=== PATIENT | female | born 1940 | race Hispanic/Latino ===

== ENCOUNTER 2017-07-17 21:12 | Emergency (ER) | payer MEDICARE ==
[~2017-07-17] VITALS: Ht 160 cm; Wt 43.1 kg
[~2017-07-17 21:12] MED LIST: ALENDRONATE SOD70 MG PO; ASPIR 8181 MG PO; ASPIRIN EC81 MG PO; BISOPROLOL-HCT1 EACH PO; CALTRATE 600 W1 EACH PO; CALTRATE-600 W1 EACH PO; CENTRUM SILVER1 EAC3 PO; COLACE100 MG PO; EDARBI40 MG PO; FLAGYL500 MG PO; LEVOTHYROXINE50 MCG PO; LEVOTHYROXINE88 MCG PO; LEXAPRO10 MG PO; LIOTHYRONINE SO5 MCG; LOPRESSOR25 MG PO; Losartan Potassium PO; MAGNESIUM OXID400 MG PO; NEXIUM40 MG PO; NORCO 7.5-3251 EACH PO; ONDANSETRO4 MG/UDTAB PO; PEPCID20 MG PO; PREDNISONE10 MG PO; REGLAN10 MG PO; REGLAN5 MG PO; SENNA LAXATIVE8.6 MG PO; SUCRALFATE1 G/10 ML PO; SUPER B COMPLE1 EACH PO; TUMS200 MG PO; VITAMIN D31000 UNIT PO; VITAMIN D32000 UNIT PO; XYZAL5 MG PO; ZOFRAN ODT4 MG PO
[2017-07-17] MEDS ORDERED: PANTOPRAZOLE 40 MG 10ML VIAL IV STA (22:20)
[2017-07-17] MEDS ORDERED: DIATRIZOATE MEGL/DIATRIZOA SOD 30 ML BTL PO ONE (22:28)
[2017-07-17] MEDS ORDERED: ONDANSETRON HCL 4 MG ORAL DISINTEGRATING TAB PO ONE (22:30)
[2017-07-17] MEDS ORDERED: ASPIRIN 81 MG CHEW TAB PO ONE (22:30)
[2017-07-17 22:35] LABS: BASOPHILS % 0.5 % (0.0-1.0); EOSINOPHILS # (AUTO) 0.1 (0.0-0.4); EOSINOPHILS % 2.1 % (0.0-6.0); HEMATOCRIT 37.5 % (34.2-44.1); HEMOGLOBIN 12.5 g/dL (12.0-16.0); LYMPHOCYTES # (AUTO) 2.7 (1.0-3.2); LYMPHOCYTES % 39.8 % (18.0-39.1); MEAN CORPUSCULAR HEMOGLOBIN 30.3 pg (28-32); MEAN CORPUSCULAR HGB CONC 33.3 g/dL (31-35); MEAN CORPUSCULAR VOLUME 90.8 fL (81-99); MONOCYTES # (AUTO) 0.6 (0.2-0.8); MONOCYTES % 9.5 % (4.4-11.3); NEUTROPHILS # (AUTO) 3.2 (2.1-6.9); NEUTROPHILS % 47.9 % (38.7-80.0); PLATELET COUNT 189 x10e3/uL (140-360); RED BLOOD COUNT 4.13 x10e6/uL (3.6-5.1); RED CELL DISTRIBUTION WIDTH 13.8 % (11.7-14.4)
[2017-07-17 22:39] LABS: INR 1.09; PROTHROMBIN TIME 13.3 seconds (11.9-14.5)
[2017-07-17 22:40] LABS: PARTIAL THROMBOPLASTIN TIME 29.6 seconds (23.8-35.5)
[2017-07-17 22:46] LABS: BILIRUBIN,URINE NEGATIVE (NEGATIVE); CLARITY,URINE CLEAR (CLEAR); COLOR,URINE YELLOW (YELLOW); KETONES,URINE NEGATIVE (NEGATIVE); LEUKOCYTE ESTERASE ,URINE TRACE (NEGATIVE); NITRITE,URINE NEGATIVE (NEGATIVE); PROTEIN,URINE DIPSTICK NEGATIVE (NEGATIVE); URINE UROBILINOGEN 0.2 mg/dL (0.2 - 1)
[2017-07-17 22:50] LABS: BACTERIA,URINE RARE /HPF; EPITHELIAL CELLS,URINE FEW /LPF; TRANSITIONAL EPI CELLS,URINE FEW
[2017-07-17 22:51] LABS: AMYLASE 139 U/L (25-125); CREATINE KINASE 47 IU/L (29-168); LIPASE 44 U/L (8-78)
[2017-07-17 23:04] LABS: ALANINE AMINOTRANSFERASE 24 IU/L (0-55); ALBUMIN 3.5 g/dL (3.5-5.0); ALKALINE PHOSPHATASE 72 IU/L (40-150); ANION GAP 12.9 mmol/L (8-16); BLOOD UREA NITROGEN 19 mg/dL (7-26); BUN/CREATININE RATIO 22 (6-25); CALCIUM 9.5 mg/dL (8.4-10.2); CARBON DIOXIDE 27 mmol/L (22-29); CHLORIDE 102 mmol/L (98-107); CREATININE, SERUM 0.87 mg/dL (0.57-1.11); EST GLOMERULAR FILTRATION RATE > 60 ML/MIN (60-); GLUCOSE 96 mg/dL (74-118); POTASSIUM 3.9 mmol/L (3.5-5.1); SODIUM 138 mmol/L (136-145)
[2017-07-18] MEDS ORDERED: CEFTRIAXONE SOD 1 GM VIAL IV STA (01:19)
[2017-07-18] MEDS ORDERED: SODIUM CHLORIDE 0.9% 500ML 500 ML IV ONE (01:30)
--- NOTE | 2017-07-18 01:52 | Diagnostic Imaging Report ---
EXAM: CT ABDOMEN/PELVIS W DATE: 07/17/2017 10:25 PM INDICATION: \S\H/O GASTRIC CA S/P SURG, ABHISHEK PAIN N/V, ORAL IV CONTRAST \[id number] \S\[id number] COMPARISON: 07/28/2016 TECHNIQUE: The abdomen and pelvis were scanned using a multidetector helical scanner. Coronal and sagittal reformations were obtained. Routine protocol performed. IV Contrast: 100 ml Isovue 300/370 FINDINGS: LOWER THORAX: No consolidations LIVER/BILIARY: Difficult to evaluate due to arterial phase of imaging. Suggestion of low-density 9 mm lesion right hepatic lobe, segment 6 on image 26. Stable extrahepatic biliary ductal dilation. GALLBLADDER: Contracted SPLEEN: Unremarkable PANCREAS: Stable prominence of the pancreatic duct. No masses. ADRENALS: No nodules KIDNEYS: Symmetric perfusion. Unchanged 1.3 cm left renal cyst. No hydronephrosis. GI TRACT: Stable postsurgical changes status post gastric resection. No evidence of obstruction or wall thickening. Diverticulosis. Normal appendix. VESSELS: Mild atherosclerotic changes PERITONEUM/RETROPERITONEUM: No free air or fluid LYMPH NODES: No lymphadenopathy REPRODUCTIVE ORGANS/BLADDER: Unremarkable SOFT TISSUES: Unremarkable BONES: Mild degenerative changes of the lumbar spine. IMPRESSION: 1. No acute abnormality in the abdomen or pelvis. 2. Stable postsurgical changes status post gastric resection. 3. Hypodensity in the right liver, unclear if this reflects a new lesion or is perfusional. Recommend nonemergent MRI with and without IV contrast liver mass protocol. Signed by: Dr Leah Ocampo MD on 07/18/2017 1:48 AM
[2017-07-18] MEDS ORDERED: SODIUM CHLORIDE 0.9% 50ML 50 ML ONE (02:05)
[2017-07-18] MEDS ORDERED: IOPAMIDOL 370 MG/ML 200 ML INFUS..BTL INJ ONE (02:06)
[2017-07-18 02:38] VITALS: BP 123/67
== END 2017-07-18 02:54 | disposition home or self-care (01) ==
LOC: ER 21:12
DX: R10.13 Epigastric pain (principal); R11.0 Nausea; K29.50 Unspecified chronic gastritis without bleeding; N30.91 Cystitis, unspecified with hematuria; I10 Essential (primary) hypertension; K21.9 Gastro-esophageal reflux disease without esophagitis; E03.9 Hypothyroidism, unspecified
CPT/HCPCS: 36415; 74177; 80053; 81001; 82150; 82550; 82553; 83690; 83735; 84484; 85025; 85610; 85730; 87086; 93005; 96374; 99284; J0696; J7040; Q9967

== ENCOUNTER → 2017-08-10 | Outpatient (CLI) | payer MEDICARE ==
[~2017-08-10] MED LIST changes: +DIATRIZOATE MEGL/DIATRIZOA SOD 30 ML BTL PO ONE; +IOPAMIDOL 370 MG/ML 200 ML INFUS..BTL INJ ONE; +SODIUM CHLORIDE 0.9% 250ML 500 ML ONE; +SODIUM CHLORIDE 0.9% 50ML 50 ML ONE
[2017-08-10 07:57] LABS: BASOPHILS % 1.1 % (0.0-1.0); EOSINOPHILS # (AUTO) 0.1 (0.0-0.4); EOSINOPHILS % 2.1 % (0.0-6.0); HEMATOCRIT 40.9 % (34.2-44.1); HEMOGLOBIN 13.8 g/dL (12.0-16.0); LYMPHOCYTES # (AUTO) 1.6 (1.0-3.2); LYMPHOCYTES % 42.6 % (18.0-39.1); MEAN CORPUSCULAR HEMOGLOBIN 30.1 pg (28-32); MEAN CORPUSCULAR HGB CONC 33.7 g/dL (31-35); MEAN CORPUSCULAR VOLUME 89.3 fL (81-99); MONOCYTES # (AUTO) 0.4 (0.2-0.8); MONOCYTES % 9.8 % (4.4-11.3); NEUTROPHILS # (AUTO) 1.7 (2.1-6.9); NEUTROPHILS % 44.4 % (38.7-80.0); PLATELET COUNT 191 x10e3/uL (140-360); RED BLOOD COUNT 4.58 x10e6/uL (3.6-5.1); RED CELL DISTRIBUTION WIDTH 14.1 % (11.7-14.4)
[2017-08-10 08:16] LABS: ALBUMIN 3.8 g/dL (3.5-5.0); ALBUMIN/GLOBULIN RATIO 1.2 (0.8-2.0); ANION GAP 11.2 mmol/L (8-16); CALCIUM 9.8 mg/dL (8.4-10.2); CREATININE, SERUM 0.96 mg/dL (0.57-1.11); POTASSIUM 4.2 mmol/L (3.5-5.1)
--- NOTE | 2017-08-10 08:19 | Diagnostic Imaging Report ---
PROCEDURE:CHEST 2 VIEWS TECHNIQUE:PA and lateral chest INDICATION:Shortness of breath COMPARISON:Patients [facility], , CHEST 2 VIEWS, 07/23/2016, 6:01. FINDINGS: Interval removal of a left subclavian portacatheter relative to July 2016. Lungs are clear and symmetrically inflated. No pleural effusions. Normal heart size and contour and pulmonary vasculature. Right humeral surgical screws. CONCLUSION: No acute abnormality. Dictated by: Vimal Fried M.D. on 08/10/2017 at 8:22 Electronically approved by: Vimal Fried M.D. on 08/10/2017 at 8:22
[2017-08-10 08:50] LABS: FOLATE 19.4 ng/mL (7.0-15.4)
--- NOTE | 2017-08-10 10:19 | Diagnostic Imaging Report ---
PROCEDURE:CT ABDOMEN AND PELVIS WITH CONTRAST COMPARISON:[facility], CT, CT ABDOMEN/PELVIS W, 07/17/2017, 23:50. INDICATIONS:follow up stomach cancer TECHNIQUE: Routine protocol Volumetric CT abdomen after ministration of 100 mL Isovue-370 intravenous contrast and 900 mm positive enteric contrast. Multiplanar reformatted images. DLP: 227.3 FINDINGS: Clear lung bases. No pleural effusions. Normal heart size. Liver: Normal Gallbladder: Normal. Common bile duct dilation up to 1 cm. No intrahepatic duct dilation. Pancreas: Normal Spleen: Splenectomy Adrenal glands: Normal Kidneys: Simple left cyst. Otherwise, normal Urinary bladder: Normal Uterus and adnexa: Normal Bowel: Postoperative sequela of gastrectomy. Otherwise, normal. Normal appendix. Peritoneum: Normal Vasculature: Normal caliber. Trace atherosclerosis. Lymph nodes: Normal Skeleton: Intact. No lytic or blastic lesions. Multilevel degenerative disc disease. [place] left scoliosis centered at L2. Soft tissues: Normal. CONCLUSION: 1. No acute abnormality. No interval change relative to July 2017. 2. No conspicuous hepatic mass on single phase imaging. Dictated by: Vimal Fried M.D. on 08/10/2017 at 10:22 Electronically approved by: Vimal Fried M.D. on 08/10/2017 at 10:22
== END ==
LOC: CT 07:22
PROVIDERS: ATTEND Surgery
DX: C16.9 Malignant neoplasm of stomach, unspecified (principal)
CPT/HCPCS: 36415; 71046; 74177; 80053; 82378; 82607; 82746; 85025; J7050; Q9967

== ENCOUNTER → 2018-03-19 | Day surgery (SDC) | payer MEDICARE ==
[2018-03-16 11:39] LABS: BASOPHILS % 0.4 % (0.0-1.0); EOSINOPHILS % 0.3 % (0.0-6.0); HEMATOCRIT 39.5 % (34.2-44.1); HEMOGLOBIN 13.3 g/dL (12.0-16.0); LYMPHOCYTES # (AUTO) 1.7 (1.0-3.2); LYMPHOCYTES % 25.5 % (18.0-39.1); MEAN CORPUSCULAR HEMOGLOBIN 30.9 pg (28-32); MEAN CORPUSCULAR HGB CONC 33.7 g/dL (31-35); MEAN CORPUSCULAR VOLUME 91.9 fL (81-99); MONOCYTES # (AUTO) 0.6 (0.2-0.8); MONOCYTES % 8.5 % (4.4-11.3); NEUTROPHILS # (AUTO) 4.4 (2.1-6.9); PLATELET COUNT 194 x10e3/uL (140-360); RED CELL DISTRIBUTION WIDTH 13.4 % (11.7-14.4)
[2018-03-16 11:59] LABS: ALBUMIN 3.7 g/dL (3.5-5.0); ALBUMIN/GLOBULIN RATIO 1.2 (0.8-2.0); ANION GAP 12.4 mmol/L (8-16); CALCIUM 9.5 mg/dL (8.4-10.2); CREATININE, SERUM 1.03 mg/dL (0.57-1.11); POTASSIUM 4.4 mmol/L (3.5-5.1)
--- NOTE | 2018-03-16 12:23 | Diagnostic Imaging Report ---
EXAMINATION: CHEST 2 VIEWS INDICATION: ^MD ORDER ^[id number] ^1130 ^PRE ADMIT COMPARISON: 07/23/2016 FINDINGS: PA and lateral views TUBES and LINES: None. LUNGS: Lungs are well inflated. Mildly increased right midlung haziness, adjacent to the scapula. PLEURA: No pleural effusion or pneumothorax. HEART AND MEDIASTINUM: The cardiomediastinal silhouette is unremarkable. BONES AND SOFT TISSUES: No acute osseous lesion. Soft tissues are unremarkable. UPPER ABDOMEN: No free air under the diaphragm. IMPRESSION: Mildly increased right midlung haziness, not significantly changed from prior exam, may be related to overlying soft tissues versus atelectasis/scarring. Developing infiltrate cannot be entirely excluded in the appropriate clinical setting. Signed by: Dr. Dawood Ferrara MD on 03/16/2018 12:19 PM
[~2018-03-19] MED LIST changes: -DIATRIZOATE MEGL/DIATRIZOA SOD 30 ML BTL PO ONE; -IOPAMIDOL 370 MG/ML 200 ML INFUS..BTL INJ ONE; +LIDOCAINE HCL 2% LOCAL INJ 5 ML SDV VIAL INJ ONE; +MEGACE ES625 MG/5 M PO; +METOCLOPRAMIDE10 MG PO; +PROPOFOL IV EMULSION 10 MG/ML 20 ML VIAL ONE; -SODIUM CHLORIDE 0.9% 250ML 500 ML ONE; -SODIUM CHLORIDE 0.9% 50ML 50 ML ONE
--- OUTSIDE RECORDS SUMMARY | 2018-03-19 08:03 | XMS REPORT | Continuity of Care Document ---
Author Author [facility] Interface Address Unknown Phone Unavailable Problems Problem Status Onset Date Classification Date Reported Comments Source BODY MASS INDEX LESS THAN 19, ADULT Active 09/18/2014 Condition 09/19/2014 [facility] UNSTEADY GAIT Active 09/18/2014 Condition 09/19/2014 [facility] CARCINOMA, STOMACH Active 05/04/2014 Condition 09/19/2014 [facility] GASTRITIS Inactive 12/23/2013 Condition 09/19/2014 [facility] NEED FOR PROPHYLACTIC VACCINATION AND INOCULATION AGAINST INFLUENZA Active 12/23/2013 Condition 09/19/2014 [facility] CKD STAGE II GFR 60-89 Active 09/01/2013 Condition 05/11/2014 [facility] CKD STAGE III GFR 30-59 Active 09/01/2013 Condition 09/19/2014 [facility] ACUTE BRONCHITIS Inactive 07/04/2013 Condition 09/19/2014 [facility] NONSPECIFIC ABNORMAL RESULTS LIVR FUNCTION STUDY Inactive 06/02/2013 Condition 09/19/2014 [facility] IMPAIRED FASTING GLUCOSE Inactive 05/13/2013 Condition 09/19/2014 [facility] PREVENTIVE HEALTH CARE Inactive 05/12/2013 Condition 09/19/2014 [facility] SCREENING FOR GLAUCOMA Active 05/12/2013 Condition 09/19/2014 [facility] DYSPHAGIA UNSPECIFIED Inactive 05/12/2013 Condition 09/19/2014 [facility] DYSPEPSIA Inactive 05/12/2013 Condition 09/19/2014 [facility] DYSPNEA Inactive 05/12/2013 Condition 09/19/2014 [facility] THYROID DISORDER Inactive 05/04/2013 Condition 09/19/2014 [facility] OTHER SCREENING MAMMOGRAM Active 02/15/2013 Condition 09/19/2014 [facility] POSTMENOPAUSAL STATUS Inactive 02/15/2013 Condition 09/19/2014 [facility] ESSENTIAL HYPERTENSION, BENIGN Active 02/15/2013 Condition 09/19/2014 [facility] HYPOTHYROIDISM Active 02/15/2013 Condition 09/19/2014 [facility] HYPERLIPIDEMIA Active 02/15/2013 Condition 09/19/2014 [facility] SINUSITIS Inactive 02/15/2013 Condition 09/19/2014 [facility] ROUTINE GYNECOLOGICAL EXAMINATION Inactive 02/15/2013 Condition 09/19/2014 [facility] ADJUSTMENT DISORDER WITH ANXIETY Active 12/21/2012 Condition 09/19/2014 [facility] CAD Inactive 11/10/2012 Condition 09/19/2014 [facility] ANGINA PECTORIS Inactive 11/10/2012 Condition 09/19/2014 [facility] HYPERTENSION - ESSENTIAL - UNCONTROLLED Inactive 11/10/2012 Condition 09/19/2014 [facility] WEAKNESS Inactive 11/10/2012 Condition 09/19/2014 [facility] THYROID NODULE Inactive 11/05/2012 Condition 09/19/2014 [facility] THYROID MASS Inactive 11/01/2012 Condition 09/19/2014 [facility] NECK PAIN Inactive 11/01/2012 Condition 09/19/2014 [facility] CHEST PAIN Inactive 11/01/2012 Condition 09/19/2014 [facility] NEED PROPHYLACTIC VACCINATION&INOCULATION FLU Active 11/01/2012 Condition 09/19/2014 [facility] HEADACHE Inactive 07/05/2012 Condition 09/19/2014 [facility] FATIGUE Inactive 07/05/2012 Condition 09/19/2014 [facility] SCREENING, COLON CANCER Active 05/26/2012 Condition 09/19/2014 [facility] LABORATORY EXAMINATION UNSPECIFIED Inactive 05/26/2012 Condition 09/19/2014 [facility] LONG-TERM USE OF ANTICOAGULANTS Inactive 05/26/2012 Condition 09/19/2014 [facility] PHYSICAL EXAM Inactive 05/26/2012 Condition 09/19/2014 [facility] DYSLIPIDEMIA Inactive Condition 09/19/2014 [facility] HYPERTENSION, BENIGN Inactive Condition 09/19/2014 [facility] OSTEOARTHRITIS Inactive Condition 09/19/2014 [facility] GERD Inactive Condition 09/19/2014 [facility] Medications Medication Details Route Status Patient Instructions Ordering Provider Order Date Source METOCLOPRAMIDE HCL 5 MG TABS take 1 tab by mouth every 6 hours as needed Active 09/18/2014 [facility] MARINOL 2.5 MG CAPS take 1 tab by mouth at bedtime Active 09/18/2014 [facility] B COMPLEX take q tab by mouth daily Active 09/18/2014 [facility] VITAMIN D3 2000IU take 1 tab by mouth daily Active 09/18/2014 [facility] VENTOLIN HFA 108 (90 BASE) MCG/ACT AERS 2 puff every 6 hours as needed Active 07/04/2013 [facility] ZITHROMAX Z-GINO 250 MG TABS use as directed No Longer Active 07/04/2013 [facility] VENTOLIN HFA 108 (90 BASE) MCG/ACT AERS 2 puff every 6 hours as needed No Longer Active 07/04/2013 [facility] VENTOLIN HFA 108 (90 BASE) MCG/ACT AERS 2 puff every 6 hours as needed Active 07/04/2013 [facility] BISOPROLOL-HYDROCHLOROTHIAZIDE 2.5-6.25 MG TABS .Take one tablet by mouth once a day No Longer Active 06/21/2013 [facility] FLUTICASONE PROPIONATE 50 MCG/ACT SUSP 2 sprays per nostril once a day No Longer Active 06/21/2013 [facility] NAPHCON-A 0.025-0.3 % SOLN 1 drop in eye as needed Active 06/21/2013 [facility] BISOPROLOL-HYDROCHLOROTHIAZIDE 2.5-6.25 MG TABS .Take one tablet by mouth once a day No Longer Active 06/21/2013 [facility] NAPHCON-A 0.025-0.3 % SOLN 1 drop in eye as needed No Longer Active 06/21/2013 [facility] FLUTICASONE PROPIONATE 50 MCG/ACT SUSP 2 sprays per nostril once a day Active 06/21/2013 [facility] ASPIRIN 81 MG TABS 1 tab by mouth daily Active 02/15/2013 [facility] EDARBI 40 MG TABS 1 tab by mouth daily Active 02/15/2013 [facility] NEXIUM 40 MG PACK 1 tab by mouth daily No Longer Active 02/15/2013 [facility] SYNTHROID 100 MCG TABS 1 tab by mouth daily Active 02/15/2013 [facility] NATURE MADE MAGNESIUM 250MG 1 tab by mouth daily No Longer Active 02/15/2013 [facility] CENTRUM SILVER TABS 1 tab by mouth daily No Longer Active 02/15/2013 [facility] XYZAL 5 MG TABS Take one tablet by mouth once a day No Longer Active 02/15/2013 [facility] AUGMENTIN 500-125 MG TABS Take one tablet by mouth two times a day No Longer Active 02/15/2013 [facility] CALTRATE 600+D TABS 1 tab by mouth daily No Longer Active 02/15/2013 [facility] VITAMIN D3 1000 IU 1 tab by mouth daily No Longer Active 02/15/2013 [facility] SYNTHROID 88 MCG TABS Take one tablet by mouth once a day Active 02/15/2013 [facility] EDARBI 40 MG TABS 1 tab by mouth daily Active 02/15/2013 [facility] LEVOTHYROXINE SODIUM 88 MCG TABS Take one tablet by mouth once a day 30 minutes before breakfast Active 02/15/2013 [facility] SYNTHROID 88 MCG TABS Take one tablet by mouth once a day Active 02/15/2013 [facility] LEVOTHYROXINE SODIUM 75 MCG TABS Take one tablet by mouth once a day 30 minutes before breakfast Active 02/15/2013 [facility] BISOPROLOL-HYDROCHLOROTHIAZIDE 2.5-6.25 MG TABS Whit cada noche-one q evening Active 11/10/2012 [facility] FLUTICASONE PROPIONATE 50 MCG/ACT SUSP 2 sprays per nostril once a day Active 11/01/2012 [facility] EDARBI 40 MG TABS 1 po once a day No Longer Active 11/01/2012 [facility] FLUTICASONE PROPIONATE 50 MCG/ACT SUSP 2 sprays per nostril once a day Active 11/01/2012 [facility] EDARBI 40 MG TABS 1 po once a day No Longer Active 11/01/2012 [facility] NEXIUM 40 MG PACK Take one tablet by mouth once a day No Longer Active 10/18/2012 [facility] PRAVASTATIN SODIUM 40 MG TABS 1 po qd No Longer Active 06/11/2012 [facility] COREG CR 80 MG [id number] 1 po qd No Longer Active 05/26/2012 [facility] ASPIRIN LOW DOSE 81 MG TABS 1 PO Daily No Longer Active 05/26/2012 [facility] CALTRATE 600+D 600-400 MG-UNIT TABS 1 PO twice Daily No Longer Active 05/26/2012 [facility] VITAMIN D3 63179 UNIT CAPS 1 po qd No Longer Active 05/26/2012 [facility] NITROSTAT 0.4 MG SUBL 1 po as needed Active 05/26/2012 [facility] SINGULAIR 10 MG TAB 1 po q hs No Longer Active 05/26/2012 [facility] VENTOLIN HFA 108 (90 BASE) MCG/ACT AERS 2 puff q4hrs prn wheezing Active 05/26/2012 [facility] COREG CR 80 MG [id number] 1 po qd Active 05/26/2012 [facility] NITROSTAT 0.4 MG SUBL 1 po as needed Active 05/26/2012 [facility] SINGULAIR 10 MG TAB 1 po q hs Active 05/26/2012 [facility] VENTOLIN HFA 108 (90 BASE) MCG/ACT AERS 2 puff q4hrs prn wheezing Active 05/26/2012 [facility] NITROSTAT 0.4 MG SUBL 1 po as needed No Longer Active 05/26/2012 [facility] SINGULAIR 10 MG TAB 1 po q hs No Longer Active 05/26/2012 [facility] NITROSTAT 0.4 MG SUBL 1 po as needed Active 05/26/2012 [facility] SINGULAIR 10 MG TAB 1 po q hs No Longer Active 05/26/2012 [facility] SINGULAIR 10 MG TAB 1 po q hs No Longer Active 05/26/2012 [facility] COREG CR 80 MG [id number] 1 po qd No Longer Active 05/26/2012 [facility] Allergies, Adverse Reactions, Alerts Substance Category Reaction Severity Reaction type Status Date Reported Comments Source ASPIRIN Drug allergy ASPIRIN 05/26/2012 [facility] Immunizations Immunization Date Given Site Status Last Updated Comments Source influenza immunization (Flu Vax) has been administered 01/10/2013 completed [facility] pneumococcal immunization administered 05/26/2012 completed [facility] influenza immunization (Flu Vax) has been administered 02/07/2012 completed [facility] Results Order Name Results Value Reference Range Date Interpretation Comments Source Chemistry HGBA1C 6.0 % - 5.6 09/19/2014 [facility] Chemistry TSH 0.733 uIU/mL 0.360 - 3.740 09/19/2014 [facility] Chemistry CHOLESTEROL 165 mg/dl - 199 09/19/2014 [facility] Chemistry TRIGLYCERIDE 68 mg/dl - 149 09/19/2014 [facility] Chemistry HDL 82 mg/dl >=61 09/19/2014 [facility] Chemistry LDL 69 mg/dl - 99 09/19/2014 [facility] Chemistry SODIUM 140 MEQ/L mmol/L 135 - 145 09/19/2014 [facility] Chemistry POTASSIUM 4.0 MEQ/L mmol/L 3.5 - 5.1 09/19/2014 [facility] Chemistry CREATININE 1.0 mg/dL 0.5 - 1.4 09/19/2014 [facility] Chemistry BUN 10 mg/dL 7 - 22 09/19/2014 [facility] Chemistry BUN/CREAT 10 6 - 25 09/19/2014 [facility] Chemistry ALBUMIN 3.6 g/dL 3.5 - 5.0 09/19/2014 [facility] Chemistry CALCIUM 9.5 mg/dL 8.5 - 10.5 09/19/2014 [facility] Chemistry SGPT (ALT) 20 U/L 0 - 65 09/19/2014 [facility] Chemistry SGOT (AST) 18 U/L 0 - 37 09/19/2014 [facility] Chemistry ALK PHOS 63 U/L 39 - 136 09/19/2014 [facility] Hematology HGB 12.5 g/dL 12.0 - 16.0 09/19/2014 [facility] Hematology HCT 38.8 % 36.0 - 48.0 09/19/2014 [facility] Hematology PLATELETS 202 K/CMM /mm3 133 - 450 09/19/2014 [facility] Chemistry CHOLESTEROL 225 mg/dl - 199 05/10/2014 [facility] Chemistry TRIGLYCERIDE 76 mg/dl - 149 05/10/2014 [facility] Chemistry HDL 110 mg/dl >=61 05/10/2014 [facility] Chemistry CHOLESTEROL 225 mg/dl - 199 05/10/2014 [facility] Chemistry TRIGLYCERIDE 76 mg/dl - 149 05/10/2014 [facility] Chemistry HDL 110 mg/dl >=61 05/10/2014 [facility] Chemistry LDL 100 mg/dl - 99 05/10/2014 [facility] Chemistry SODIUM 137 MEQ/L mmol/L 135 - 145 05/10/2014 [facility] Chemistry POTASSIUM 4.2 MEQ/L mmol/L 3.5 - 5.1 05/10/2014 [facility] Chemistry CREATININE 1.2 mg/dL 0.5 - 1.4 05/10/2014 [facility] Chemistry BUN 20 mg/dL 7 - 22 05/10/2014 [facility] Chemistry BUN/CREAT 17 6 - 25 05/10/2014 [facility] Chemistry ALBUMIN 4.0 g/dL 3.5 - 5.0 05/10/2014 [facility] Chemistry CALCIUM 9.7 mg/dL 8.5 - 10.5 05/10/2014 [facility] Chemistry SGPT (ALT) 15 U/L 0 - 65 05/10/2014 [facility] Chemistry SGOT (AST) 16 U/L 0 - 37 05/10/2014 [facility] Chemistry ALK PHOS 70 U/L 39 - 136 05/10/2014 [facility] Chemistry T4, FREE 1.26 ng/dl 0.76 - 1.46 05/10/2014 [facility] Chemistry TSH 10.200 uIU/mL 0.360 - 3.740 05/10/2014 [facility] Chemistry HGBA1C 5.8 % - 5.6 05/10/2014 [facility] Hematology HGB 12.1 g/dL 12.0 - 16.0 05/10/2014 [facility] Hematology HCT 36.6 % 36.0 - 48.0 05/10/2014 [facility] Hematology PLATELETS 167 K/CMM /mm3 133 - 450 05/10/2014 [facility] Chemistry SODIUM 138 MEQ/L mmol/L 135 - 145 09/01/2013 [facility] Chemistry POTASSIUM 5.0 MEQ/L mmol/L 3.5 - 5.1 09/01/2013 [facility] Chemistry SODIUM 138 MEQ/L mmol/L 135 - 145 09/01/2013 [facility] Chemistry POTASSIUM 5.0 MEQ/L mmol/L 3.5 - 5.1 09/01/2013 [facility] Chemistry CREATININE 1.1 mg/dL 0.5 - 1.4 09/01/2013 [facility] Chemistry SODIUM 138 MEQ/L mmol/L 135 - 145 09/01/2013 [facility] Chemistry POTASSIUM 5.0 MEQ/L mmol/L 3.5 - 5.1 09/01/2013 [facility] Chemistry CREATININE 1.1 mg/dL 0.5 - 1.4 09/01/2013 [facility] Chemistry SODIUM 138 MEQ/L mmol/L 135 - 145 09/01/2013 [facility] Chemistry POTASSIUM 5.0 MEQ/L mmol/L 3.5 - 5.1 09/01/2013 [facility] Chemistry SODIUM 138 MEQ/L mmol/L 135 - 145 09/01/2013 [facility] Chemistry POTASSIUM 5.0 MEQ/L mmol/L 3.5 - 5.1 09/01/2013 [facility] Chemistry CREATININE 1.1 mg/dL 0.5 - 1.4 09/01/2013 [facility] Chemistry BUN 15 mg/dL 7 - 09/01/2013 [facility] Chemistry SODIUM 138 MEQ/L mmol/L 135 - 145 09/01/2013 [facility] Chemistry POTASSIUM 5.0 MEQ/L mmol/L 3.5 - 5.1 09/01/2013 [facility] Chemistry CREATININE 1.1 mg/dL 0.5 - 1.4 09/01/2013 [facility] Chemistry SODIUM 138 MEQ/L mmol/L 135 - 145 09/01/2013 [facility] Chemistry POTASSIUM 5.0 MEQ/L mmol/L 3.5 - 5.1 09/01/2013 [facility] Chemistry CREATININE 1.1 mg/dL 0.5 - 1.4 09/01/2013 [facility] Chemistry CREATININE 1.1 mg/dL 0.5 - 1.4 09/01/2013 [facility] Chemistry BUN 15 mg/dL 7 - 22 09/01/2013 [facility] Chemistry BUN/CREAT 14 6 - 25 09/01/2013 [facility] Chemistry ALBUMIN 4.2 g/dL 3.5 - 5.0 09/01/2013 [facility] Chemistry CALCIUM 9.6 mg/dL 8.5 - 10.5 09/01/2013 [facility] Chemistry SODIUM 138 MEQ/L mmol/L 135 - 145 09/01/2013 [facility] Chemistry POTASSIUM 5.0 MEQ/L mmol/L 3.5 - 5.1 09/01/2013 [facility] Chemistry CREATININE 1.1 mg/dL 0.5 - 1.4 09/01/2013 [facility] Chemistry BUN 15 mg/dL 7 - 22 09/01/2013 [facility] Chemistry BUN/CREAT 14 6 - 25 09/01/2013 [facility] Chemistry ALBUMIN 4.2 g/dL 3.5 - 5.0 09/01/2013 [facility] Chemistry CALCIUM 9.6 mg/dL 8.5 - 10.5 09/01/2013 [facility] Chemistry SGPT (ALT) 21 U/L 0 - 65 09/01/2013 [facility] Chemistry SGOT (AST) 21 U/L 0 - 37 09/01/2013 [facility] Chemistry ALK PHOS 62 U/L 39 - 136 09/01/2013 [facility] Chemistry SGPT (ALT) 21 U/L 0 - 65 09/01/2013 [facility] Chemistry SGOT (AST) 21 U/L 0 - 37 09/01/2013 [facility] Chemistry ALK PHOS 62 U/L 39 - 136 09/01/2013 [facility] Chemistry TSH 0.079 uIU/mL 0.360 - 3.740 05/12/2013 [facility] Chemistry CHOLESTEROL 215 mg/dl - 199 05/12/2013 [facility] Chemistry TRIGLYCERIDE 66 mg/dl - 149 05/12/2013 [facility] Chemistry HDL 91 mg/dl >=61 05/12/2013 [facility] Chemistry LDL 111 mg/dl - 99 05/12/2013 [facility] Chemistry SODIUM 140 MEQ/L mmol/L 135 - 145 05/12/2013 [facility] Chemistry POTASSIUM 4.3 MEQ/L mmol/L 3.5 - 5.1 05/12/2013 [facility] Chemistry TSH 0.079 uIU/mL 0.360 - 3.740 05/12/2013 [facility] Chemistry CHOLESTEROL 215 mg/dl - 199 05/12/2013 [facility] Chemistry TRIGLYCERIDE 66 mg/dl - 149 05/12/2013 [facility] Chemistry TSH 0.079 uIU/mL 0.360 - 3.740 05/12/2013 [facility] Chemistry CHOLESTEROL 215 mg/dl - 199 05/12/2013 [facility] Chemistry TRIGLYCERIDE 66 mg/dl - 149 05/12/2013 [facility] Chemistry TSH 0.079 uIU/mL 0.360 - 3.740 05/12/2013 [facility] Chemistry CHOLESTEROL 215 mg/dl - 199 05/12/2013 [facility] Chemistry TRIGLYCERIDE 66 mg/dl - 149 05/12/2013 [facility] Chemistry CHOLESTEROL 215 mg/dl - 199 05/12/2013 [facility] Chemistry TSH 0.079 uIU/mL 0.360 - 3.740 05/12/2013 [facility] Chemistry TRIGLYCERIDE 66 mg/dl - 149 05/12/2013 [facility] Chemistry HDL 91 mg/dl >=61 05/12/2013 [facility] Chemistry LDL 111 mg/dl - 99 05/12/2013 [facility] Chemistry SODIUM 140 MEQ/L mmol/L 135 - 145 05/12/2013 [facility] Chemistry POTASSIUM 4.3 MEQ/L mmol/L 3.5 - 5.1 05/12/2013 [facility] Chemistry CREATININE 0.9 mg/dL 0.5 - 1.4 05/12/2013 [facility] Chemistry BUN 18 mg/dL 7 - 22 05/12/2013 [facility] Chemistry BUN/CREAT 20 6 - 25 05/12/2013 [facility] Chemistry ALBUMIN 4.3 g/dL 3.5 - 5.0 05/12/2013 [facility] Chemistry CALCIUM 10.2 mg/dL 8.5 - 10.5 05/12/2013 [facility] Chemistry SGPT (ALT) 19 U/L 0 - 65 05/12/2013 Medical [facility] Chemistry ALK PHOS 71 U/L 39 - 136 05/12/2013 Medical [facility] Chemistry SGOT (AST) 20 U/L 0 - 37 05/12/2013 Medical [facility] Chemistry T4, FREE 1.82 ng/dl 0.76 - 1.46 05/12/2013 [facility] Chemistry HGBA1C 5.5 % - 5.6 05/12/2013 Medical [facility] Hematology HGB 13.7 g/dL 12.0 - 16.0 05/12/2013 Medical [facility] Hematology HCT 41.6 % 36.0 - 48.0 05/12/2013 Medical [facility] Hematology PLATELETS 184 K/CMM /mm3 133 - 450 05/12/2013 [facility] Chemistry HEMOCCULT Negative 05/12/2013 [facility] Chemistry HEMOCCULT Negative 05/12/2013 [facility] Chemistry HEMOCCULT Negative 05/12/2013 [facility] Chemistry HEMOCCULT Negative 05/12/2013 [facility] Microbiology HEMOCCULT Negative 05/12/2013 [facility] Serology HELICOB IGG <0.4 U/mL 11/01/2012 [facility] Serology HELICOB IGG <0.4 U/mL 11/01/2012 [facility] Serology HELICOB IGG <0.4 U/mL 11/01/2012 [facility] Serology HELICOB IGG <0.4 U/mL 11/01/2012 [facility] Serology HELICOB IGG <0.4 U/mL 11/01/2012 [facility] Serology HELICOB IGG <0.4 U/mL 11/01/2012 [facility] Serology HELICOB IGG <0.4 U/mL 11/01/2012 [facility] Chemistry SODIUM 140 MEQ/L mmol/L 135 - 145 07/05/2012 [facility] Chemistry POTASSIUM 4.3 MEQ/L mmol/L 3.5 - 5.1 07/05/2012 [facility] Chemistry CREATININE 0.7 mg/dL 0.5 - 1.4 07/05/2012 Medical [facility] Chemistry SODIUM 140 MEQ/L mmol/L 135 - 145 07/05/2012 Medical [facility] Chemistry POTASSIUM 4.3 MEQ/L mmol/L 3.5 - 5.1 07/05/2012 [facility] Chemistry CREATININE 0.7 mg/dL 0.5 - 1.4 07/05/2012 [facility] Chemistry BUN 17 mg/dL 7 - 22 07/05/2012 [facility] Chemistry BUN/CREAT 24 6 - 25 07/05/2012 [facility] Chemistry ALBUMIN 4.3 g/dL 3.5 - 5.0 07/05/2012 [facility] Chemistry CALCIUM 9.7 mg/dL 8.5 - 10.5 07/05/2012 [facility] Chemistry SODIUM 140 MEQ/L mmol/L 135 - 145 07/05/2012 [facility] Chemistry POTASSIUM 4.3 MEQ/L mmol/L 3.5 - 5.1 07/05/2012 [facility] Chemistry CREATININE 0.7 mg/dL 0.5 - 1.4 07/05/2012 [facility] Chemistry SODIUM 140 MEQ/L mmol/L 135 - 145 07/05/2012 [facility] Chemistry POTASSIUM 4.3 MEQ/L mmol/L 3.5 - 5.1 07/05/2012 [facility] Chemistry CREATININE 0.7 mg/dL 0.5 - 1.4 07/05/2012 [facility] Chemistry SODIUM 140 MEQ/L mmol/L 135 - 145 07/05/2012 [facility] Chemistry POTASSIUM 4.3 MEQ/L mmol/L 3.5 - 5.1 07/05/2012 [facility] Chemistry CREATININE 0.7 mg/dL 0.5 - 1.4 07/05/2012 [facility] Chemistry SODIUM 140 MEQ/L mmol/L 135 - 145 07/05/2012 [facility] Chemistry POTASSIUM 4.3 MEQ/L mmol/L 3.5 - 5.1 07/05/2012 [facility] Chemistry CREATININE 0.7 mg/dL 0.5 - 1.4 07/05/2012 [facility] Chemistry BUN 17 mg/dL 7 - 07/05/2012 [facility] Chemistry BUN/CREAT 24 6 - 25 07/05/2012 [facility] Chemistry ALBUMIN 4.3 g/dL 3.5 - 5.0 07/05/2012 [facility] Chemistry CALCIUM 9.7 mg/dL 8.5 - 10.5 07/05/2012 [facility] Chemistry SGPT (ALT) 20 U/L 0 - 65 07/05/2012 [facility] Chemistry SGOT (AST) 13 U/L 0 - 37 07/05/2012 [facility] Chemistry ALK PHOS 85 U/L 39 - 136 07/05/2012 [facility] Chemistry TSH 0.430 uIU/mL 0.360 - 3.740 07/05/2012 [facility] Hematology HGB 14.0 g/dL 12.0 - 16.0 07/05/2012 [facility] Hematology HCT 43.3 % 36.0 - 48.0 07/05/2012 [facility] Hematology PLATELETS 167 K/CMM /mm3 133 - 450 07/05/2012 [facility] Chemistry HEMOCCULT Negative 05/31/2012 [facility] Chemistry HEMOCCULT Negative 05/31/2012 [facility] Chemistry SODIUM 141 MEQ/L mmol/L 135 - 145 05/31/2012 [facility] Chemistry HEMOCCULT Negative 05/31/2012 [facility] Chemistry HEMOCCULT Negative 05/31/2012 [facility] Chemistry SODIUM 141 MEQ/L mmol/L 135 - 145 05/31/2012 [facility] Chemistry HEMOCCULT Negative 05/31/2012 [facility] Chemistry HEMOCCULT Negative 05/31/2012 [facility] Chemistry BUN 24 mg/dL 7 - 22 05/31/2012 [facility] Chemistry HEMOCCULT Negative 05/31/2012 [facility] Chemistry HEMOCCULT Negative 05/31/2012 [facility] Chemistry CALCIUM 9.0 mg/dL 8.5 - 10.5 05/31/2012 [facility] Chemistry SGPT (ALT) 19 U/L 0 - 65 05/31/2012 [facility] Chemistry SODIUM 141 MEQ/L mmol/L 135 - 145 05/31/2012 [facility] Chemistry POTASSIUM 4.9 MEQ/L mmol/L 3.5 - 5.1 05/31/2012 [facility] Chemistry SODIUM 141 MEQ/L mmol/L 135 - 145 05/31/2012 [facility] Chemistry POTASSIUM 4.9 MEQ/L mmol/L 3.5 - 5.1 05/31/2012 [facility] Chemistry CREATININE 0.9 mg/dL 0.5 - 1.4 05/31/2012 [facility] Chemistry SODIUM 141 MEQ/L mmol/L 135 - 145 05/31/2012 [facility] Chemistry POTASSIUM 4.9 MEQ/L mmol/L 3.5 - 5.1 05/31/2012 [facility] Chemistry CREATININE 0.9 mg/dL 0.5 - 1.4 05/31/2012 [facility] Chemistry SODIUM 141 MEQ/L mmol/L 135 - 145 05/31/2012 [facility] Chemistry POTASSIUM 4.9 MEQ/L mmol/L 3.5 - 5.1 05/31/2012 [facility] Chemistry CREATININE 0.9 mg/dL 0.5 - 1.4 05/31/2012 [facility] Chemistry BUN 24 mg/dL 7 - 22 05/31/2012 [facility] Chemistry BUN/CREAT 27 6 - 25 05/31/2012 [facility] Chemistry ALBUMIN 4.2 g/dL 3.5 - 5.0 05/31/2012 [facility] Chemistry CALCIUM 9.0 mg/dL 8.5 - 10.5 05/31/2012 [facility] Chemistry SGPT (ALT) 19 U/L 0 - 65 05/31/2012 [facility] Chemistry SGOT (AST) 16 U/L 0 - 37 05/31/2012 [facility] Chemistry ALK PHOS 87 U/L 39 - 136 05/31/2012 [facility] Chemistry T4, FREE 0.96 ng/dl 0.76 - 1.46 05/31/2012 Medical [facility] Chemistry TSH 0.620 uIU/mL 0.360 - 3.740 05/31/2012 Medical [facility] Chemistry HEMOCCULT Negative 05/31/2012 [facility] Hematology HGB 13.8 g/dL 12.0 - 16.0 05/31/2012 Medical [facility] Hematology HCT 41.7 % 36.0 - 48.0 05/31/2012 Medical [facility] Hematology PLATELETS 157 K/CMM /mm3 133 - 450 05/31/2012 [facility] Microbiology HEMOCCULT Negative 05/31/2012 [facility] Microbiology HEMOCCULT Negative 05/31/2012 [facility] Microbiology HEMOCCULT Negative 05/31/2012 [facility] Chocolate Temperer PAP SMEAR Done 08/03/2004 [facility] Chocolate Temperer PAP SMEAR Done 08/03/2004 [facility] Chocolate Temperer PAP SMEAR Done 08/03/2004 [facility] Chocolate Temperer PAP SMEAR Done 08/03/2004 [facility] Chocolate Temperer PAP SMEAR Done 08/03/2004 [facility] Chocolate Temperer PAP SMEAR Done 08/03/2004 [facility] Chocolate Temperer PAP SMEAR Done 08/03/2004 [facility] Pathology PAP SMEAR Done 08/03/2004 [facility] Chocolate Temperer PAP SMEAR Done 08/03/2004 [facility] Chocolate Temperer PAP SMEAR Done 08/03/2004 [facility] Chocolate Temperer PAP SMEAR Done 08/03/2004 [facility] Chocolate Temperer PAP SMEAR Done 08/03/2004 [facility] Chocolate Temperer PAP SMEAR Done 08/03/2004 [facility] Chocolate Temperer PAP SMEAR Done 08/03/2004 [facility] Chocolate Temperer PAP SMEAR Done 08/03/2004 [facility] Pathology PAP SMEAR Done 08/03/2004 [facility] Vital Signs Vital Sign Value Date Comments Source Height 63 09/18/2014 [facility] Weight 97 09/18/2014 [facility] Temperature Oral (F) 97.0 F 09/18/2014 [facility] Respitory Rate 14 09/18/2014 [facility] Heart Rate 86 09/18/2014 [facility] Systolic (mm Hg) 138 09/18/2014 [facility] Diastolic (mm Hg) 81 09/18/2014 [facility] Systolic (mm Hg) 123 06/01/2014 [facility] Diastolic (mm Hg) 75 06/01/2014 [facility] Heart Rate 70 06/01/2014 [facility] Group Respitory Rate 16 06/01/2014 [facility] Height 63 06/01/2014 [facility] Weight 108 06/01/2014 [facility] Temperature Oral (F) 97.1 F 06/01/2014 [facility] Height 63 05/04/2014 [facility] Weight 108 05/04/2014 [facility] Temperature Oral (F) 97.5 F 05/04/2014 [facility] Respitory Rate 16 05/04/2014 [facility] Heart Rate 68 05/04/2014 [facility] Systolic (mm Hg) 122 05/04/2014 [facility] Diastolic (mm Hg) 71 05/04/2014 [facility] Respitory Rate 16 12/23/2013 [facility] Systolic (mm Hg) 125 12/23/2013 [facility] Diastolic (mm Hg) 66 12/23/2013 [facility] Heart Rate 64 12/23/2013 [facility] Weight 105 12/23/2013 [facility] Height 63 12/23/2013 [facility] Temperature Oral (F) 97.3 F 12/23/2013 [facility] Respitory Rate 16 09/01/2013 [facility] Temperature Oral (F) 98.0 F 09/01/2013 [facility] Systolic (mm Hg) 116 09/01/2013 [facility] Diastolic (mm Hg) 65 09/01/2013 [facility] Heart Rate 62 09/01/2013 [facility] Weight 104 09/01/2013 [facility] Respitory Rate 16 07/04/2013 [facility] Temperature Oral (F) 97.3 F 07/04/2013 [facility] Heart Rate 65 07/04/2013 [facility] Systolic (mm Hg) 95 07/04/2013 [facility] Diastolic (mm Hg) 57 07/04/2013 [facility] Weight 103 07/04/2013 [facility] Respitory Rate 16 06/21/2013 [facility] Systolic (mm Hg) 119 06/21/2013 [facility] Diastolic (mm Hg) 60 06/21/2013 [facility] Heart Rate 65 06/21/2013 [facility] Weight 104 06/21/2013 [facility] Respitory Rate 16 05/12/2013 [facility] Systolic (mm Hg) 114 05/12/2013 [facility] Diastolic (mm Hg) 69 05/12/2013 [facility] Heart Rate 65 05/12/2013 [facility] Weight 107 05/12/2013 [facility] Temperature Oral (F) 97.2 F 02/15/2013 [facility] Height 63 02/15/2013 [facility] Weight 110.50 02/15/2013 [facility] Respitory Rate 12 02/15/2013 [facility] Systolic (mm Hg) 131 02/15/2013 [facility] Diastolic (mm Hg) 66 02/15/2013 [facility] Heart Rate 64 02/15/2013 [facility] Weight 110 12/21/2012 [facility] Temperature Oral (F) 97.8 F 12/21/2012 [facility] Heart Rate 66 12/21/2012 [facility] Respitory Rate 17 12/21/2012 [facility] Systolic (mm Hg) 140 12/21/2012 [facility] Diastolic (mm Hg) 78 12/21/2012 [facility] Weight 113 11/23/2012 [facility] Temperature Oral (F) 98.6 F 11/23/2012 [facility] Respitory Rate 17 11/23/2012 [facility] Weight 113 11/12/2012 [facility] Systolic (mm Hg) 119 11/12/2012 [facility] Diastolic (mm Hg) 60 11/12/2012 [facility] Heart Rate 70 11/12/2012 [facility] Temperature Oral (F) 98.3 F 11/12/2012 [facility] Weight 113 11/10/2012 [facility] Systolic (mm Hg) 164 11/10/2012 [facility] Diastolic (mm Hg) 98 11/10/2012 [facility] Heart Rate 80 11/10/2012 [facility] Temperature Oral (F) 98.7 F 11/10/2012 [facility] Weight 113 11/01/2012 [facility] Systolic (mm Hg) 150 11/01/2012 [facility] Diastolic (mm Hg) 85 11/01/2012 [facility] Temperature Oral (F) 98.6 F 11/01/2012 [facility] Respitory Rate 17 11/01/2012 [facility] Heart Rate 70 11/01/2012 [facility] Height 61 05/26/2012 [facility] Systolic (mm Hg) 110 05/26/2012 [facility] Diastolic (mm Hg) 60 05/26/2012 [facility] Heart Rate 60 05/26/2012 [facility] Respitory Rate 17 05/26/2012 [facility] Weight 114 05/26/2012 [facility] Encounters Location Location Details Encounter Type Encounter Number Reason For Visit Attending Provider ADM Date DC Date Status Source [facility] Lab Report [id number] Viviana Menard MD 07/05/2012 07/05/2012 Medical [facility] Lab Report [id number] Dona Giron MD 11/01/2012 11/01/2012 Medical [facility] Office Visit [id number] Viviana Menard MD 11/01/2012 11/01/2012 Medical [facility] [place] Office Visit [id number] Dona Giron MD 11/10/2012 11/10/2012 Medical [facility] Office Visit [id number] Dona Giron MD 11/12/2012 11/12/2012 Medical [facility] Office Visit [id number] Viviana Menard MD 12/21/2012 12/21/2012 Medical [facility] Lab Report [id number] Viviana Menard MD 01/23/2013 01/23/[address] [facility] [place] [place] [facility] Office Visit [id number] Mechelle Boggs MD 06/21/2013 06/21/2013 Medical [facility] Office Visit [id number] Mechelle Boggs MD 07/04/2013 07/04/[address] [facility] [place] [facility] Lab Report [id number] Mechelle Boggs MD 09/01/2013 09/01/2013 [facility] Lab Report [id number] Mechelle Boggs MD 11/01/2013 11/01/2013 Medical [facility] Office Visit [id number] Mechelle Boggs MD 12/23/2013 12/23/[address] [facility] [place] [place] [facility] Office Visit [id number] Mechelle Boggs MD 05/04/2014 05/04/2014 [facility] Lab Report [id number] Mechelle Boggs MD 05/10/2014 05/10/[address] [facility] [place] [place] [facility] Office Visit [id number] Mechelle Boggs MD 06/01/2014 06/01/2014 [facility] Office Visit [id number] Mechelle Boggs MD 09/18/2014 09/18/2014 [facility] Lab Report [id number] Mechelle Boggs MD 09/19/2014 09/19/2014 Medical [facility] Procedures Procedure Code Date Perfomer Comments Source mammogram 06141 06/02/2013 Completed at [facility] mammogram 98409 06/02/2012 Completed at [facility] mammogram 87748 10/15/2010 Done Medical [facility] mammogram 97591 10/15/2010 Done Medical [facility] vaginal Pap smear results 66291 08/03/2004 Done Medical [facility] vaginal Pap smear results 58272 08/03/2004 Done Medical [facility]
--- OUTSIDE RECORDS SUMMARY | 2018-03-19 08:03 | XMS REPORT | Continuity of Care Document ---
Author Author [facility] Organization [facility] Address Unknown Phone Unavailable Care Team Providers Care Africana Studies Professor Name Role Phone Dona Giron MD, PP Unavailable Insurance Providers Payer name Policy type / Coverage type Policy ID Covered democrat ID Policy [place] MED[place]: [facility] [employer] [place]: ACS - [place] - TRADITIONAL MEDICARE B-[place]: NOVITAS [employer] MEDICARE B-[place]: NOVITAS [employer] [place]: ACS - TMHP - TRADITIONAL Encounters Encounter Performer Location Date Office Visit Dona Giron MD [facility] Card[facility] [place] Nov 10, 2012 Allergies, Adverse Reactions, Alerts Type Substance Reaction Status Drug allergy ASPIRIN per patient does not have an allergy Active Problems Problem Effective Dates Problem Status DYSLIPIDEMIA Active HYPERTENSION, BENIGN Active OSTEOARTHRITIS Active SCREENING, COLON CANCER May 26, 2012 Active LABORATORY EXAMINATION UNSPECIFIED May 26, 2012 Active LONG-TERM (CURRENT) USE OF ANTICOAGULANTS May 26, 2012 Active PHYSICAL EXAM May 26, 2012 Active HEADACHE Jul 05, 2012 Active FATIGUE Jul 05, 2012 Active GERD Active THYROID MASS Nov 01, 2012 Active NECK PAIN Nov 01, 2012 Active CHEST PAIN Nov 01, 2012 Active NEED PROPHYLACTIC VACCINATION&INOCULATION FLU Nov 01, 2012 Active THYROID NODULE Nov 05, 2012 Active CAD Nov 10, 2012 Active 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 10, 2012 Active HYPERTENSION - ESSENTIAL - UNCONTROLLED Nov 10, 2012 Active WEAKNESS Nov 10, 2012 Active Procedures Date Description Comments Oct 15, 2010 mammogram Done August 03, 2004 vaginal Pap smear results Done Oct 15, 2010 mammogram Done August 03, 2004 vaginal Pap smear results Done May 26, 2012 smoking status never smoker Jun 02, 2012 mammogram Completed at [facility] Nov 10, 2012 smoking status never smoker Medications Medication Instructions Start Date Status ASPIRIN LOW DOSE 81 MG TABS 1 PO Daily May 26, 2012 Active CALTRATE 600+D 600-400 MG-UNIT TABS 1 PO twice Daily May 26, 2012 Active VITAMIN D3 23216 UNIT CAPS 1 po qd May 26, 2012 Active NITROSTAT 0.4 MG SUBL 1 po as needed May 26, 2012 Active VENTOLIN HFA 108 (90 BASE) MCG/ACT AERS 2 puff q4hrs prn wheezing May 26, 2012 Active NEXIUM 40 MG PACK 1 poqdaily Oct 18, 2012 Active PRAVASTATIN SODIUM 40 MG TABS 1 po qd Jun 11, 2012 Inactive FLUTICASONE PROPIONATE 50 MCG/ACT SUSP 2 sprays per nostril once a day Nov 01, 2012 Active EDARBI 40 MG TABS 1 po once a day Nov 01, 2012 Active SINGULAIR 10 MG TAB 1 po q hs May 26, 2012 Inactive COREG CR 80 MG [id number] 1 po qd May 26, 2012 Inactive BISOPROLOL-HYDROCHLOROTHIAZIDE 2.5-6.25 MG TABS Whit cada noche-one q evening Nov 10, 2012 Active Immunizations Vaccine Date Status influenza immunization (Flu Vax) has been administered Feb 07, 2012 completed pneumococcal immunization administered May 26, 2012 completed Vital Signs Date Description Test Result May 26, 2012 height E&M - 8302-2 HEIGHT 61 in May 26, 2012 blood pressure, systolic - 8480-6 BP SYSTOLIC 110 mm Hg May 26, 2012 blood pressure, diastolic - 8462-4 BP DIASTOLIC 60 mm Hg May 26, 2012 pulse rate E&M - 8867-4 PULSE RATE 60 /min May 26, 2012 respiratory rate E&M - 9279-1 RESP RATE 17 /min May 26, 2012 weight E&M - 3141-9 WEIGHT 114 lb Nov 01, 2012 weight E&M - 3141-9 WEIGHT 113 lb Nov 01, 2012 blood pressure, systolic - 8480-6 BP SYSTOLIC 150 mm Hg Nov 01, 2012 blood pressure, diastolic - 8462-4 BP DIASTOLIC 85 mm Hg Nov 01, 2012 temperature E&M TEMPERATURE 98.6 deg f Nov 01, 2012 respiratory rate E&M - 9279-1 RESP RATE 17 /min Nov 01, 2012 pulse rate E&M - 8867-4 PULSE RATE 70 /min Nov 10, 2012 weight E&M - 3141-9 WEIGHT 113 lb Nov 10, 2012 blood pressure, systolic, sitting, right arm BP SYS SIT R 164 null Nov 10, 2012 blood pressure, diastolic, sitting, right arm BP TRUE SIT R 98 mmHg Nov 10, 2012 pulse rate, sitting, right PULSE SIT R 80 /min Nov 10, 2012 blood pressure, systolic, sitting, left arm BP SYS SIT L 153 mm Hg Nov 10, 2012 blood pressure, diastolic, sitting, left arm BP TRUE SIT L 91 mm Hg Nov 10, 2012 pulse rate, sitting, left PULSE SIT L 78 /min Nov 10, 2012 temperature E&M TEMPERATURE 98.7 deg f Nov 10, 2012 blood pressure, systolic - 8480-6 BP SYSTOLIC 164 mm Hg Nov 10, 2012 pulse rate E&M - 8867-4 PULSE RATE 78 /min Nov 10, 2012 blood pressure, diastolic - 8462-4 BP DIASTOLIC 98 mm Hg Results Date Description Test Name Value Reference Interpretation Status May 31, 2012 hemoglobin, blood HGB 13.8 g/dL 12.0-16.0 May 31, 2012 hematocrit, blood HCT 41.7 % 36.0-48.0 May 31, 2012 platelet count PLATELETS 157 K/CMM /mm3 133-450 Jul 05, 2012 hemoglobin, blood HGB 14.0 g/dL 12.0-16.0 Jul 05, 2012 hematocrit, blood HCT 43.3 % 36.0-48.0 Jul 05, 2012 platelet count PLATELETS 167 K/CMM /mm3 133-450 May 31, 2012 occult blood, stool (E&M) HEMOCCULT Negative null Negative May 31, 2012 occult blood, stool (E&M) HEMOCCULT Negative null Negative May 31, 2012 sodium, serum SODIUM 141 MEQ/L mmol/L 135-145 May 31, 2012 potassium, serum POTASSIUM 4.9 MEQ/L mmol/L 3.5-5.1 May 31, 2012 creatinine, serum CREATININE 0.9 mg/dL 0.5-1.4 May 31, 2012 urea nitrogen, blood BUN 24 mg/dL 7-22 High May 31, 2012 urea nitrogen/creatinine ratio, serum BUN/CREAT 27 null 6-25 High May 31, 2012 albumin, serum ALBUMIN 4.2 g/dL 3.5-5.0 May 31, 2012 calcium, serum CALCIUM 9.0 mg/dL 8.5-10.5 May 31, 2012 alanine aminotransferase (SGPT), serum SGPT (ALT) 19 U/L 0-65 May 31, 2012 aspartate aminotransferase (SGOT), serum SGOT (AST) 16 U/L 0-37 May 31, 2012 alkaline phosphatase, serum ALK PHOS 87 U/L 39-136 May 31, 2012 thyroxine, serum, free T4, FREE 0.96 ng/dl 0.76-1.46 May 31, 2012 thyroid stimulating hormone, serum TSH 0.620 uIU/mL 0.360-3.740 May 31, 2012 occult blood, stool (E&M) HEMOCCULT Negative null Negative Jul 05, 2012 sodium, serum SODIUM 140 MEQ/L mmol/L 135-145 Jul 05, 2012 potassium, serum POTASSIUM 4.3 MEQ/L mmol/L 3.5-5.1 Jul 05, 2012 creatinine, serum CREATININE 0.7 mg/dL 0.5-1.4 Jul 05, 2012 urea nitrogen, blood BUN 17 mg/dL 7-Jul 05, 2012 urea nitrogen/creatinine ratio, serum BUN/CREAT 24 null 6-Jul 05, 2012 albumin, serum ALBUMIN 4.3 g/dL 3.5-5.0 Jul 05, 2012 calcium, serum CALCIUM 9.7 mg/dL 8.5-10.5 Jul 05, 2012 alanine aminotransferase (SGPT), serum SGPT (ALT) 20 U/L 0-65 Jul 05, 2012 aspartate aminotransferase (SGOT), serum SGOT (AST) 13 U/L 0-37 Jul 05, 2012 alkaline phosphatase, serum ALK PHOS 85 U/L 39-136 Jul 05, 2012 thyroid stimulating hormone, serum TSH 0.430 uIU/mL 0.360-3.740 Nov 01, 2012 Helicobacter pylori antibody, IgG, serum HELICOB IGG <0.4 U/mL null August 03, 2004 vaginal Pap smear results PAP SMEAR Done null August 03, 2004 vaginal Pap smear results PAP SMEAR Done null
--- OUTSIDE RECORDS SUMMARY | 2018-03-19 08:03 | XMS REPORT | Continuity of Care Document ---
Author Author [facility] Organization [facility] Address Unknown Phone Unavailable Care Team Providers Care Sand Temperer Name Role Phone Derian PINEDO, Viviana SAHH Unavailable Insurance Providers Payer name Policy type / Coverage type Policy ID Covered alliance party ID Policy [place] MED[place]: [facility] [place]: ACS - TMHP - [facility] MEDICARE B-[place]: [employer] Encounters Encounter Performer Location Date Lab Report Viviana Menard MD [facility] Jul 05, 2012 Allergies, Adverse Reactions, Alerts Type Substance [...] 2012 Active FATIGUE Jul 05, 2012 Active Procedures Date Description Comments Oct 15, 2010 mammogram Done August 03, 2004 vaginal Pap smear results Done Oct 15, 2010 mammogram Done August 03, 2004 vaginal Pap smear results Done May 26, 2012 smoking status never smoker Jun 02, 2012 mammogram Completed at [facility] Medications Medication Instructions Start Date Status COREG CR 80 MG [id number] 1 po qd May 26, 2012 Active ASPIRIN LOW DOSE 81 MG TABS 1 PO Daily May 26, 2012 Active CALTRATE 600+D 600-400 MG-UNIT TABS 1 PO twice Daily May 26, 2012 Active VITAMIN D3 95060 UNIT CAPS 1 po qd May 26, 2012 Active NITROSTAT 0.4 MG SUBL 1 po as needed May 26, 2012 Active SINGULAIR 10 MG TAB 1 po q hs May 26, 2012 Active VENTOLIN HFA 108 (90 BASE) MCG/ACT AERS 2 puff q4hrs prn wheezing May 26, 2012 Active PRAVASTATIN SODIUM 40 MG TABS 1 po qd Jun 11, 2012 Active Immunizations Vaccine Date Status influenza [...] weight E&M - 3141-9 WEIGHT 114 lb Results Date Description Test Name Value Reference [...] stimulating hormone, serum TSH 0.430 uIU/mL 0.360-3.740 August 03, 2004 vaginal Pap smear results PAP SMEAR Done null August 03, 2004 vaginal Pap smear results PAP SMEAR Done null
--- OUTSIDE RECORDS SUMMARY | 2018-03-19 08:04 | XMS REPORT | Continuity of Care Document ---
Author Author [facility] Organization [facility] Address Unknown Phone Unavailable Care Team Providers Care [place]ory [place] Tender Name Role Phone Dona Giron MD, PP Unavailable Insurance Providers Payer name Policy type / Coverage type Policy ID Covered democrat ID Policy [place] MED[place]: [facility] [employer] [place]: ACS - TMHP - [place]ADITIONAL MEDICARE B[place]: NOVITAS [employer] MEDICARE [place]: [place]OVITAS [employer] [place] ACS - TMHP - [place]ADITIONAL Encounters Encounter Performer Location Date Office Visit Dona Giron MD [facility] [place] Nov 12, 2012 Allergies, Adverse Reactions, Alerts Type Substance [...] smoker Jun 02, 2012 mammogram Completed at [facility] Nov 10, 2012 smoking status never smoker Nov 12, 2012 smoking status never smoker Medications Medication Instructions Start Date Status ASPIRIN LOW DOSE 81 MG TABS 1 PO Daily May 26, 2012 Active CALTRATE 600+D 600-400 MG-UNIT TABS 1 PO twice Daily May 26, 2012 Active VITAMIN D3 88804 UNIT CAPS 1 po qd May 26, [...] 26, 2012 Inactive COREG CR 80 MG [id number] 1 po qd May 26, 2012 Inactive [...] - 8462-4 BP DIASTOLIC 98 mm Hg Nov 12, 2012 weight E&M - 3141-9 WEIGHT 113 lb Nov 12, 2012 blood pressure, systolic, sitting, right arm BP SYS SIT R 119 null Nov 12, 2012 blood pressure, diastolic, sitting, right arm BP TRUE SIT R 60 mmHg Nov 12, 2012 pulse rate, sitting, right PULSE SIT R 70 /min Nov 12, 2012 blood pressure, systolic, sitting, left arm BP SYS SIT L 98 mm Hg Nov 12, 2012 blood pressure, diastolic, sitting, left arm BP TRUE SIT L 56 mm Hg Nov 12, 2012 pulse rate, sitting, left PULSE SIT L 68 /min Nov 12, 2012 temperature E&M TEMPERATURE 98.3 deg f Nov 12, 2012 blood pressure, systolic - 8480-6 BP SYSTOLIC 119 mm Hg Nov 12, 2012 pulse rate E&M - 8867-4 PULSE RATE 68 /min Nov 12, 2012 blood pressure, diastolic - 8462-4 BP DIASTOLIC 60 mm Hg Results Date Description Test Name [...] 2012 urea nitrogen, blood BUN 24 mg/dL 7- High May 31, 2012 urea nitrogen/creatinine ratio, [...] urea nitrogen/creatinine ratio, serum BUN/CREAT 24 null -Jul 05, 2012 albumin, serum ALBUMIN 4.3 g/dL [...]
--- OUTSIDE RECORDS SUMMARY | 2018-03-19 08:04 | XMS REPORT | Continuity of Care Document ---
Author Author [facility] Organization [facility] Address Unknown Phone Unavailable Care Team Providers Care Powerhouse Laborer Name Role Phone Derian PINEDO, Viviana SHAH Unavailable Insurance Providers Payer name Policy type / Coverage type Policy ID Covered green party ID Policy [place] MED[place]: [facility] [place]: ACS - [place]HP - [place] MEDICARE B[place]: NOVITAS [employer] MEDICARE [place]: [place]OVITAS [employer] [place] ACS - [place]HP - [place]ADITIONAL Encounters Encounter Performer Location Date Office Visit Viviana Menard MD [facility] Nov 01, 2012 Allergies, Adverse Reactions, Alerts Type Substance [...] PROPHYLACTIC VACCINATION&INOCULATION FLU Nov 01, 2012 Active Procedures Date Description Comments Oct 15, 2010 mammogram Done August 03, 2004 vaginal Pap smear results Done Oct 15, 2010 mammogram Done August 03, 2004 vaginal Pap smear results Done May 26, 2012 smoking status never smoker Jun 02, 2012 mammogram Completed at [facility] Medications Medication Instructions Start Date Status COREG CR 80 MG [id number] 1 po qd May 26, 2012 Active ASPIRIN LOW DOSE 81 MG TABS 1 PO Daily May 26, 2012 Active CALTRATE 600+D 600-400 MG-UNIT TABS 1 PO twice Daily May 26, 2012 Active VITAMIN D3 01402 UNIT CAPS 1 po qd May 26, [...] once a day Nov 01, 2012 Active Immunizations Vaccine Date Status influenza [...] E&M - 8867-4 PULSE RATE 70 /min Results Date Description Test Name Value Reference [...] urea nitrogen/creatinine ratio, serum BUN/CREAT 24 null 6-25 Jul 05, 2012 albumin, serum ALBUMIN 4.3 g/dL [...]
--- OUTSIDE RECORDS SUMMARY | 2018-03-19 08:04 | XMS REPORT | Continuity of Care Document ---
Author Author [facility] Organization [facility] Address Unknown Phone Unavailable Care Team Providers Care Mobile Manager Name Role Phone Derian PINEDO, Viviana SHAH Unavailable Insurance Providers Payer name Policy type / Coverage type Policy ID Covered constitution party ID Policy [place]: [facility] [place]ID[place]: ACS - [place]HP - [place] MEDICARE B-[place]: [employer] MEDICARE B-[place]: [employer] [place]: ACS - TMHP - [place] MEDICARE B-[place]: [employer] Encounters Encounter Performer Location Date Office Visit Viviana Menard MD [facility] Dec 21, 2012 Allergies, Adverse Reactions, Alerts Type Substance [...] 2012 Active WEAKNESS Nov 10, 2012 Active 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, 2012 Active Procedures Date Description Comments Oct 15, 2010 mammogram Done August 03, 2004 vaginal Pap smear results Done Oct 15, 2010 mammogram Done August 03, 2004 vaginal Pap smear results Done May 26, 2012 smoking status never smoker Jun 02, 2012 mammogram Completed at [facility] Nov 10, 2012 smoking status never smoker Nov 12, 2012 smoking status never smoker Medications Medication Instructions Start Date Status ASPIRIN LOW DOSE 81 MG TABS 1 PO Daily May 26, 2012 Active CALTRATE 600+D 600-400 MG-UNIT TABS 1 PO twice Daily May 26, 2012 Active VITAMIN D3 33403 UNIT CAPS 1 po qd May 26, [...] 26, 2012 Inactive COREG CR 80 MG [id number] 1 po qd May 26, 2012 Inactive [...] - 8462-4 BP DIASTOLIC 60 mm Hg Nov 23, 2012 weight E&M - 3141-9 WEIGHT 113 lb Nov 23, 2012 temperature E&M TEMPERATURE 98.6 deg f Nov 23, 2012 respiratory rate E&M - 9279-1 RESP RATE 17 /min Dec 21, 2012 weight E&M - 3141-9 WEIGHT 110 lb Dec 21, 2012 temperature E&M TEMPERATURE 97.8 deg f Dec 21, 2012 pulse rate E&M - 8867-4 PULSE RATE 66 /min Dec 21, 2012 respiratory rate E&M - 9279-1 RESP RATE 17 /min Dec 21, 2012 blood pressure, systolic - 8480-6 BP SYSTOLIC 140 mm Hg Dec 21, 2012 blood pressure, diastolic - 8462-4 BP DIASTOLIC 78 mm Hg Results Date Description Test Name [...] 2012 urea nitrogen, blood BUN 17 mg/dL 7-22 Jul 05, 2012 urea nitrogen/creatinine ratio, serum BUN/CREAT [...]
--- OUTSIDE RECORDS SUMMARY | 2018-03-19 08:04 | XMS REPORT | Continuity of Care Document ---
Author Author [facility] Address Unknown Phone Unavailable Care Team Providers Care Repossession Agent Name Role Phone Mechelle Boggs MD, PP Unavailable Insurance Providers Payer name Policy type / Coverage type Policy ID Covered alliance party ID Policy [place]: [facility] [place]: ACS - TM[place] - TRADITIONAL MEDICARE B-[place]: [employer] MEDICARE B-[place]: [employer] [place]: ACS - TM[place] - TRADITIONAL MEDICARE B-[place]: [employer] MEDICARE B-[place]: [employer] [place]: ACS - TM[place] - TRADITIONAL MEDICARE B-[place]: [employer] [place]: ACS - TM[place] - TRADITIONAL MEDICARE B-[place]: [employer] [place]: ACS - TM[place] - TRADITIONAL MEDICARE B-[place]: [employer] [place]: ACS - TM[facility] - TRADITIONAL MEDICARE B-[place]: [employer] [place]: ACS - TM[place] - TRADITIONAL MEDICARE B-[place]: [employer] [place]: ACS - TM[place] - TRADITIONAL MEDICARE B-[place]: [employer] [place]: ACS - [place] - TRADITIONAL MEDICARE B-[place]: [employer] [place]: ACS - TM[place] - TRADITIONAL MEDICARE B-[place]: [employer] [place]: ACS - [place] - TRADITIONAL MEDICARE B-[place]: [employer] [place]: ACS - [place] - TRADITIONAL MEDICARE B[place]: [employer] [place]: ACS - TM[facility] - TRADITIONAL Encounters Encounter Performer Location Date Office Visit Mechelle Boggs MD [facility] Jun 21, 2013 Allergies, Adverse Reactions, Alerts Type Substance Reaction [...] DISORDER WITH ANXIETY Dec 21, 2012 Active OTHER SCREENING MAMMOGRAM Feb 15, 2013 Active POSTMENOPAUSAL STATUS Feb 15, 2013 Active ESSENTIAL HYPERTENSION, BENIGN Feb 15, 2013 Active HYPOTHYROIDISM Feb 15, 2013 Active HYPERLIPIDEMIA Feb 15, 2013 Active SINUSITIS Feb 15, 2013 Active ROUTINE GYNECOLOGICAL EXAMINATION Feb 15, 2013 Active THYROID DISORDER May 04, 2013 Active PREVENTIVE HEALTH CARE May 12, 2013 Active SCREENING FOR GLAUCOMA May 12, 2013 Active SCREENING, COLON CANCER May 12, 2013 Active DYSPHAGIA UNSPECIFIED May 12, 2013 Active DYSPEPSIA May 12, 2013 Active DYSPNEA May 12, 2013 Active IMPAIRED FASTING GLUCOSE May 13, 2013 Active NONSPECIFIC ABNORMAL RESULTS LIVR FUNCTION STUDY Jun 02, 2013 Active Procedures Date Description Comments Oct 15, 2010 mammogram Done August 03, 2004 vaginal Pap smear results Done Oct 15, 2010 mammogram Done August 03, 2004 vaginal Pap smear results Done May 26, 2012 smoking status never smoker Jun 02, 2012 mammogram Completed at [facility] Nov 10, 2012 smoking status never smoker Nov 12, 2012 smoking status never smoker Feb 15, 2013 smoking status never smoker Jun 02, 2013 mammogram Completed at [facility] Medications Medication Instructions Start Date Status CALTRATE 600+D 600-400 MG-UNIT TABS 1 PO twice Daily May 26, 2012 Active NITROSTAT 0.4 MG SUBL 1 po as needed May 26, 2012 Active VENTOLIN HFA 108 (90 BASE) MCG/ACT AERS 2 puff q4hrs prn wheezing May 26, 2012 Active NEXIUM 40 MG PACK 1 poqdaily Oct 18, 2012 Active PRAVASTATIN SODIUM 40 MG TABS 1 po qd Jun 11, 2012 Inactive SINGULAIR 10 MG TAB 1 po q hs May 26, 2012 Inactive COREG CR 80 MG [id number] 1 po qd May 26, 2012 Inactive ASPIRIN 81 MG TABS 1 tab by mouth daily Feb 15, 2013 Active EDARBI 40 MG TABS 1 tab by mouth daily Feb 15, 2013 Active NEXIUM 40 MG PACK 1 tab by mouth daily Feb 15, 2013 Active SYNTHROID 100 MCG TABS 1 tab by mouth daily Feb 15, 2013 Active NATURE MADE MAGNESIUM 250MG 1 tab by mouth daily Feb 15, 2013 Active CENTRUM SILVER TABS 1 tab by mouth daily Feb 15, 2013 Active XYZAL 5 MG TABS Take one tablet by mouth once a day Feb 15, 2013 Inactive AUGMENTIN 500-125 MG TABS Take one tablet by mouth two times a day Feb 15, 2013 Inactive BISOPROLOL-HYDROCHLOROTHIAZIDE 2.5-6.25 MG TABS Take one tablet by mouth at bed time Jun 21, 2013 Active BISOPROLOL-HYDROCHLOROTHIAZIDE 2.5-6.25 MG TABS .Take one tablet by mouth once a day Jun 21, 2013 Active ASPIRIN LOW DOSE 81 MG TABS 1 PO Daily May 26, 2012 Inactive EDARBI 40 MG TABS 1 po once a day Nov 01, 2012 Inactive CALTRATE 600+D TABS 1 tab by mouth daily Feb 15, 2013 Inactive VITAMIN D3 19557 UNIT CAPS 1 po qd May 26, 2012 Inactive FLUTICASONE PROPIONATE 50 MCG/ACT SUSP 2 sprays per nostril once a day Jun 21, 2013 Active VITAMIN D3 1000 IU 1 tab by mouth daily Feb 15, 2013 Inactive NAPHCON-A 0.025-0.3 % SOLN 1 drop in eye as needed Jun 21, 2013 Active Immunizations Vaccine Date Status influenza immunization (Flu Vax) has been administered Feb 07, 2012 completed pneumococcal immunization administered May 26, 2012 completed influenza immunization (Flu Vax) has been administered Jan 10, 2013 completed Vital Signs Date Description Test Result [...] - 8462-4 BP DIASTOLIC 78 mm Hg Feb 15, 2013 temperature E&M TEMPERATURE 97.2 deg f Feb 15, 2013 height E&M - 8302-2 HEIGHT 63 in Feb 15, 2013 weight Martir - 3141-9 WEIGHT 110.50 lb Feb 15, 2013 respiratory rate E&M - 9279-1 RESP RATE 12 /min Feb 15, 2013 blood pressure, systolic - 8480-6 BP SYSTOLIC 131 mm Hg Feb 15, 2013 blood pressure, diastolic - 8462-4 BP DIASTOLIC 66 mm Hg Feb 15, 2013 pulse rate E&M - 8867-4 PULSE RATE 64 /min May 12, 2013 respiratory rate E&M - 9279-1 RESP RATE 16 /min May 12, 2013 blood pressure, systolic - 8480-6 BP SYSTOLIC 114 mm Hg May 12, 2013 blood pressure, diastolic - 8462-4 BP DIASTOLIC 69 mm Hg May 12, 2013 pulse rate E&M - 8867-4 PULSE RATE 65 /min May 12, 2013 weight Magaly&Chapis - 3141-9 WEIGHT 107 lb Jun 21, 2013 respiratory rate E&M - 9279-1 RESP RATE 16 /min Jun 21, 2013 blood pressure, systolic - 8480-6 BP SYSTOLIC 119 mm Hg Jun 21, 2013 blood pressure, diastolic - 8462-4 BP DIASTOLIC 60 mm Hg Jun 21, 2013 pulse rate E&M - 8867-4 PULSE RATE 65 /min Jun 21, 2013 weight Magaly&Chapis - 3141-9 WEIGHT 104 lb Results Date Description Test Name Value [...] count PLATELETS 167 K/CMM /mm3 133-450 May 12, 2013 hemoglobin, blood HGB 13.7 g/dL 12.0-16.0 May 12, 2013 hematocrit, blood HCT 41.6 % 36.0-48.0 May 12, 2013 platelet count PLATELETS 184 K/CMM /mm3 133-450 May 31, 2012 occult blood, stool (E&M) HEMOCCULT Negative null Negative May 31, 2012 occult blood, stool (E&M) HEMOCCULT Negative null Negative May 31, 2012 sodium, serum SODIUM 141 MEQ/L mmol/L 135-145 May 31, 2012 potassium, serum POTASSIUM 4.9 MEQ/L mmol/L 3.5-5.1 May 31, 2012 creatinine, serum CREATININE 0.9 mg/dL 0.5-1.4 May 31, 2012 urea nitrogen, blood BUN 24 mg/dL - High May 31, 2012 urea nitrogen/creatinine ratio, serum BUN/CREAT 27 null - High May 31, 2012 albumin, serum ALBUMIN [...] stimulating hormone, serum TSH 0.430 uIU/mL 0.360-3.740 May 12, 2013 thyroid stimulating hormone, serum TSH 0.079 uIU/mL 0.360-3.740 Low May 12, 2013 cholesterol, serum CHOLESTEROL 215 mg/dl <=199 High May 12, 2013 triglyceride, serum, fasting TRIGLYCERIDE 66 mg/dl <=149 May 12, 2013 HDL cholesterol, serum HDL 91 mg/dl >=61 May 12, 2013 LDL cholesterol, serum LDL 111 mg/dl <=99 High May 12, 2013 sodium, serum SODIUM 140 MEQ/L mmol/L 135-145 May 12, 2013 potassium, serum POTASSIUM 4.3 MEQ/L mmol/L 3.5-5.1 May 12, 2013 creatinine, serum CREATININE 0.9 mg/dL 0.5-1.4 May 12, 2013 urea nitrogen, blood BUN 18 mg/dL 7-May 12, 2013 urea nitrogen/creatinine ratio, serum BUN/CREAT 20 null 6-May 12, 2013 albumin, serum ALBUMIN 4.3 g/dL 3.5-5.0 May 12, 2013 calcium, serum CALCIUM 10.2 mg/dL 8.5-10.5 May 12, 2013 alanine aminotransferase (SGPT), serum SGPT (ALT) 19 U/L 0-65 May 12, 2013 aspartate aminotransferase (SGOT), serum SGOT (AST) 20 U/L 0-37 May 12, 2013 alkaline phosphatase, serum ALK PHOS 71 U/L 39-136 May 12, 2013 thyroxine, serum, free T4, FREE 1.82 ng/dl 0.76-1.46 High May 12, 2013 occult blood, stool (E&M) HEMOCCULT Negative null Negative May 12, 2013 hemoglobin A1C, blood, as % of total hemoglobin HGBA1C 5.5 % <=5.6 Nov 01, 2012 Helicobacter pylori antibody, IgG, serum HELICOB IGG <0.4 U/mL null August 03, 2004 vaginal Pap smear results PAP SMEAR Done null August 03, 2004 vaginal Pap smear results PAP SMEAR Done null
--- OUTSIDE RECORDS SUMMARY | 2018-03-19 08:04 | XMS REPORT | Continuity of Care Document ---
Author Author [facility] Organization [facility] Address Unknown Phone Unavailable Care Team Providers Care Pottery Decoration Designer Name Role Phone Derian PINEDO, Viviana SHAH Unavailable Insurance Providers Payer name Policy type / Coverage type Policy ID Covered libertarian ID Policy [place]: [facility] [place]: ACS - [place] - TRADITIONAL MED[place]ARE [place]: [employer] MEDICARE [place]: [employer] [place]: ACS - [place] - TRADITIONAL MEDICARE [place]: [employer] Encounters Encounter Performer Location Date Lab Report Viviana Menard MD [facility] Jan 23, 2013 Allergies, Adverse Reactions, Alerts Type Substance [...] 02, 2012 mammogram Completed at [facility] Nov 10, 2012 smoking status never smoker Nov 12, 2012 smoking status never smoker Medications Medication Instructions Start Date Status ASPIRIN LOW DOSE 81 MG TABS 1 PO Daily May 26, 2012 Active CALTRATE 600+D 600-400 MG-UNIT TABS 1 PO twice Daily May 26, 2012 Active VITAMIN D3 30243 UNIT CAPS 1 po qd May 26, [...] 26, 2012 Inactive COREG CR 80 MG [id number] 1 po qd May 26, 2012 Inactive [...] urea nitrogen/creatinine ratio, serum BUN/CREAT 27 null 6- High May 31, 2012 albumin, serum ALBUMIN [...]
--- OUTSIDE RECORDS SUMMARY | 2018-03-19 08:04 | XMS REPORT | Continuity of Care Document ---
Author Author [facility] Organization [facility] Address Unknown Phone Unavailable Care Team Providers Care Motel Keeper Name Role Phone Dona Giron MD, PP Unavailable Insurance Providers Payer name Policy type / Coverage type Policy ID Covered republican ID Policy [place]: [facility] [place]: ACS - [place] - TRADITIONAL MEDICARE B-[place]: [employer] [facility] MEDIC[facility] B[place]: [employer] [place] ACS - TMHP - TRADITIONAL Encounters Encounter Performer Location Date Lab Report Dona Giron MD [facility] Nov 01, 2012 Allergies, Adverse Reactions, Alerts [...] smoker Jun 02, 2012 mammogram Completed at [facility] Medications Medication Instructions Start Date Status COREG CR 80 MG [id number] 1 po qd May 26, 2012 Active ASPIRIN LOW DOSE 81 MG TABS 1 PO Daily May 26, 2012 Active CALTRATE 600+D 600-400 MG-UNIT TABS 1 PO twice Daily May 26, 2012 Active VITAMIN D3 28227 UNIT CAPS 1 po qd May 26, [...]
--- OUTSIDE RECORDS SUMMARY | 2018-03-19 08:04 | XMS REPORT | Continuity of Care Document ---
Author Author [facility] Address Unknown Phone Unavailable Care Team Providers Care Water Hauler Name Role Phone MD Ambrose, Mechelle SHAH Unavailable Insurance Providers Payer name Policy type / Coverage type Policy ID Covered alliance party ID Policy [place]: [facility] [place]: ACS - TMHP - TRADITIONAL MEDICARE [...] Location Date Office Visit Mechelle Boggs MD [facility] Jul 04, 2013 Allergies, Adverse Reactions, Alerts Type Substance [...] LIVR FUNCTION STUDY Jun 02, 2013 Active ACUTE BRONCHITIS Jul 04, 2013 Active Procedures Date Description Comments Oct 15, 2010 mammogram Done August 03, 2004 vaginal Pap smear results Done Oct 15, 2010 mammogram Done August 03, 2004 vaginal Pap smear results Done May 26, 2012 smoking status never smoker Jun 02, 2012 mammogram Completed at [facility] Nov 10, 2012 smoking status never smoker Nov 12, 2012 smoking status never smoker Feb 15, 2013 smoking status never smoker Jun 02, 2013 mammogram Completed at [facility] Medications Medication Instructions Start Date Status CALTRATE 600+D 600-400 MG-UNIT TABS 1 PO twice Daily May 26, 2012 Active NITROSTAT 0.4 MG SUBL 1 po as needed May 26, 2012 Active NEXIUM 40 MG PACK 1 poqdaily Oct 18, 2012 Active PRAVASTATIN SODIUM 40 MG TABS 1 po qd Jun 11, 2012 Inactive SINGULAIR 10 MG TAB 1 po q hs May 26, 2012 Inactive COREG CR 80 MG [id number] 1 po qd May 26, 2012 Inactive [...] at bed time Jun 21, 2013 Active ASPIRIN LOW DOSE 81 MG TABS 1 PO Daily May 26, 2012 Inactive EDARBI 40 MG TABS 1 po once a day Nov 01, 2012 Inactive CALTRATE 600+D TABS 1 tab by mouth daily Feb 15, 2013 Inactive VITAMIN D3 66591 UNIT CAPS 1 po qd May 26, 2012 Inactive FLUTICASONE PROPIONATE 50 MCG/ACT SUSP 2 sprays per nostril once a day Jun 21, 2013 Active VITAMIN D3 1000 IU 1 tab by mouth daily Feb 15, 2013 Inactive NAPHCON-A 0.025-0.3 % SOLN 1 drop in eye as needed Jun 21, 2013 Active VENTOLIN HFA 108 (90 BASE) MCG/ACT AERS 2 puff every 6 hours as needed Jul 04, 2013 Active BISOPROLOL-HYDROCHLOROTHIAZIDE 2.5-6.25 MG TABS .Take one tablet by mouth once a day Jun 21, 2013 Inactive ZITHROMAX Z-GINO 250 MG TABS use as directed Jul 04, 2013 Active Immunizations Vaccine Date Status influenza [...] HEIGHT 63 in Feb 15, 2013 weight E&M - 3141-9 WEIGHT 110.50 lb Feb 15, [...] RATE 65 /min May 12, 2013 weight E&M - 3141-9 WEIGHT 107 lb Jun 21, 2013 respiratory rate E&M - 9279-1 RESP RATE 16 /min Jun 21, 2013 blood pressure, systolic - 8480-6 BP SYSTOLIC 119 mm Hg Jun 21, 2013 blood pressure, diastolic - 8462-4 BP DIASTOLIC 60 mm Hg Jun 21, 2013 pulse rate E&M - 8867-4 PULSE RATE 65 /min Jun 21, 2013 weight E&M - 3141-9 WEIGHT 104 lb Jul 04, 2013 respiratory rate E&M - 9279-1 RESP RATE 16 /min Jul 04, 2013 temperature E&M TEMPERATURE 97.3 deg f Jul 04, 2013 pulse rate E&M - 8867-4 PULSE RATE 65 /min Jul 04, 2013 blood pressure, systolic - 8480-6 BP SYSTOLIC 95 mm Hg Jul 04, 2013 blood pressure, diastolic - 8462-4 BP DIASTOLIC 57 mm Hg Jul 04, 2013 weight E&M - 3141-9 WEIGHT 103 lb Results Date Description Test Name Value [...] 2012 urea nitrogen, blood BUN 17 mg/dL -Jul 05, 2012 urea nitrogen/creatinine ratio, serum BUN/CREAT [...] 2013 urea nitrogen, blood BUN 18 mg/dL -May 12, 2013 urea nitrogen/creatinine ratio, serum BUN/CREAT 20 null -May 12, 2013 albumin, serum ALBUMIN 4.3 g/dL [...]
--- OUTSIDE RECORDS SUMMARY | 2018-03-19 08:05 | XMS REPORT | Continuity of Care Document ---
Author Author [facility] Organization [facility] Address Unknown Phone Unavailable Care Team Providers Care Clinical Courier Name Role Phone MD Ambrose, Mechelle SHAH Unavailable Insurance Providers Payer name Policy type / Coverage type Policy ID Covered green party ID Policy [place] MED[place]: [facility] [place]ID-[place]: ACS - TMHP - TRADITIONAL [...] SOLUTIONS [place]: ACS - [place] - [place]ADITION[place]: ACS - [place] - TRADITIONAL MEDICARE B-[place]: [employer] MEDICARE B-[place]: [employer] [facility] (MEDICARE REPLACEMENT HMO) [place]: ACS - [place] - TRADITIONAL MEDICARE [...] B-[place]: [employer] MEDICARE B-[place]: [employer] Encounters Encounter Performer Location Date Lab Report Mechelle Boggs MD [facility] Sep 01, 2013 Allergies, Adverse Reactions, Alerts Type Substance [...] Active ACUTE BRONCHITIS Jul 04, 2013 Active CKD STAGE II (MILD) GFR 60-89 Sep 01, 2013 Active Procedures Date Description Comments Oct 15, 2010 mammogram Done August 03, 2004 vaginal Pap smear results Done Oct 15, 2010 mammogram Done August 03, 2004 vaginal Pap smear results Done May 26, 2012 smoking status never smoker Jun 02, 2012 mammogram Completed at [facility] Nov 10, 2012 smoking status never smoker Nov 12, 2012 smoking status never smoker Feb 15, 2013 smoking status never smoker Jun 02, 2013 mammogram Completed at [facility] Sep 01, 2013 smoking status Never smoker Medications Medication Instructions Start Date Status CALTRATE 600+D 600-400 MG-UNIT TABS 1 PO twice Daily May 26, 2012 Active NITROSTAT 0.4 MG SUBL 1 po as needed May 26, 2012 Active PRAVASTATIN SODIUM 40 MG TABS 1 po qd Jun 11, 2012 Inactive SINGULAIR 10 MG TAB 1 po q hs May 26, 2012 Inactive COREG CR 80 MG [id number] 1 po qd May 26, 2012 Inactive [...] daily Feb 15, 2013 Inactive VITAMIN D3 94497 UNIT CAPS 1 po qd May 26, [...] TABS use as directed Jul 04, 2013 Inactive SYNTHROID 88 MCG TABS Take one tablet by mouth once a day Feb 15, 2013 Active NEXIUM 40 MG PACK Take one tablet by mouth once a day Oct 18, 2012 Active NEXIUM 40 MG PACK 1 tab by mouth daily Feb 15, 2013 Inactive Immunizations Vaccine Date Status influenza immunization (Flu Vax) has been administered Feb 07, 2012 completed pneumococcal immunization administered May 26, 2012 completed influenza immunization (Flu Vax) has been administered Jan 10, 2013 completed Vital Signs Date Description Test Result May 26, 2012 height E&M HEIGHT 61 in May 26, 2012 blood pressure, systolic BP SYSTOLIC 110 mm Hg May 26, 2012 blood pressure, diastolic BP DIASTOLIC 60 mm Hg May 26, 2012 pulse rate E&M PULSE RATE 60 /min May 26, 2012 respiratory rate E&M RESP RATE 17 /min May 26, 2012 weight E&M WEIGHT 114 lb Nov 01, 2012 weight E&M WEIGHT 113 lb Nov 01, 2012 blood pressure, systolic BP SYSTOLIC 150 mm Hg Nov 01, 2012 blood pressure, diastolic BP DIASTOLIC 85 mm Hg Nov 01, 2012 temperature E&M TEMPERATURE 98.6 deg f Nov 01, 2012 respiratory rate E&M RESP RATE 17 /min Nov 01, 2012 pulse rate E&M PULSE RATE 70 /min Nov 10, 2012 weight E&M WEIGHT 113 lb Nov 10, 2012 blood [...] f Nov 10, 2012 blood pressure, systolic BP SYSTOLIC 164 mm Hg Nov 10, 2012 pulse rate E&M PULSE RATE 78 /min Nov 10, 2012 blood pressure, diastolic BP DIASTOLIC 98 mm Hg Nov 12, 2012 weight E&M WEIGHT 113 lb Nov 12, 2012 blood [...] f Nov 12, 2012 blood pressure, systolic BP SYSTOLIC 119 mm Hg Nov 12, 2012 pulse rate E&M PULSE RATE 68 /min Nov 12, 2012 blood pressure, diastolic BP DIASTOLIC 60 mm Hg Nov 23, 2012 weight E&M WEIGHT 113 lb Nov 23, 2012 temperature E&M TEMPERATURE 98.6 deg f Nov 23, 2012 respiratory rate E&M RESP RATE 17 /min Dec 21, 2012 weight E&M WEIGHT 110 lb Dec 21, 2012 temperature E&M TEMPERATURE 97.8 deg f Dec 21, 2012 pulse rate E&M PULSE RATE 66 /min Dec 21, 2012 respiratory rate E&M RESP RATE 17 /min Dec 21, 2012 blood pressure, systolic BP SYSTOLIC 140 mm Hg Dec 21, 2012 blood pressure, diastolic BP DIASTOLIC 78 mm Hg Feb 15, 2013 temperature E&M TEMPERATURE 97.2 deg f Feb 15, 2013 height E&M HEIGHT 63 in Feb 15, 2013 weight E&M WEIGHT 110.50 lb Feb 15, 2013 respiratory rate E&M RESP RATE 12 /min Feb 15, 2013 blood pressure, systolic BP SYSTOLIC 131 mm Hg Feb 15, 2013 blood pressure, diastolic BP DIASTOLIC 66 mm Hg Feb 15, 2013 pulse rate E&M PULSE RATE 64 /min May 12, 2013 respiratory rate E&M RESP RATE 16 /min May 12, 2013 blood pressure, systolic BP SYSTOLIC 114 mm Hg May 12, 2013 blood pressure, diastolic BP DIASTOLIC 69 mm Hg May 12, 2013 pulse rate E&M PULSE RATE 65 /min May 12, 2013 weight E&M WEIGHT 107 lb Jun 21, 2013 respiratory rate E&M RESP RATE 16 /min Jun 21, 2013 blood pressure, systolic BP SYSTOLIC 119 mm Hg Jun 21, 2013 blood pressure, diastolic BP DIASTOLIC 60 mm Hg Jun 21, 2013 pulse rate E&M PULSE RATE 65 /min Jun 21, 2013 weight E&M WEIGHT 104 lb Jul 04, 2013 respiratory rate E&M RESP RATE 16 /min Jul 04, 2013 temperature E&M TEMPERATURE 97.3 deg f Jul 04, 2013 pulse rate E&M PULSE RATE 65 /min Jul 04, 2013 blood pressure, systolic BP SYSTOLIC 95 mm Hg Jul 04, 2013 blood pressure, diastolic BP DIASTOLIC 57 mm Hg Jul 04, 2013 weight E&M WEIGHT 103 lb Sep 01, 2013 respiratory rate E&M RESP RATE 16 /min Sep 01, 2013 temperature E&M TEMPERATURE 98.0 deg f Sep 01, 2013 blood pressure, systolic BP SYSTOLIC 116 mm Hg Sep 01, 2013 blood pressure, diastolic BP DIASTOLIC 65 mm Hg Sep 01, 2013 pulse rate E&M PULSE RATE 62 /min Sep 01, 2013 weight E&M WEIGHT 104 lb Results Date Description Test [...] platelet count PLATELETS 184 K/CMM /mm3 133-450 Sep 01, 2013 sodium, serum SODIUM 138 MEQ/L mmol/L 135-145 Sep 01, 2013 potassium, serum POTASSIUM 5.0 MEQ/L mmol/L 3.5-5.1 Sep 01, 2013 creatinine, serum CREATININE 1.1 mg/dL 0.5-1.4 Sep 01, 2013 urea nitrogen, blood BUN 15 mg/dL 7-22 Sep 01, 2013 urea nitrogen/creatinine ratio, serum BUN/CREAT 14 null 6-25 Sep 01, 2013 albumin, serum ALBUMIN 4.2 g/dL 3.5-5.0 Sep 01, 2013 calcium, serum CALCIUM 9.6 mg/dL 8.5-10.5 Sep 01, 2013 alanine aminotransferase (SGPT), serum SGPT (ALT) 21 U/L 0-65 Sep 01, 2013 aspartate aminotransferase (SGOT), serum SGOT (AST) 21 U/L 0-37 Sep 01, 2013 alkaline phosphatase, serum ALK PHOS 62 U/L 39-136 May 31, 2012 sodium, serum SODIUM 141 [...] stimulating hormone, serum TSH 0.620 uIU/mL 0.360-3.740 Jul 05, 2012 sodium, serum SODIUM 140 [...] urea nitrogen/creatinine ratio, serum BUN/CREAT 20 null 6-25 May 12, 2013 albumin, serum ALBUMIN 4.3 g/dL [...] 1.82 ng/dl 0.76-1.46 High May 12, 2013 hemoglobin A1C, blood, as % of total hemoglobin HGBA1C 5.5 % <=5.6 Sep 01, 2013 sodium, serum SODIUM 138 MEQ/L mmol/L 135-145 Sep 01, 2013 potassium, serum POTASSIUM 5.0 MEQ/L mmol/L 3.5-5.1 Sep 01, 2013 creatinine, serum CREATININE 1.1 mg/dL 0.5-1.4 Sep 01, 2013 urea nitrogen, blood BUN 15 mg/dL 7-Sep 01, 2013 urea nitrogen/creatinine ratio, serum BUN/CREAT 14 null -Sep 01, 2013 albumin, serum ALBUMIN 4.2 g/dL 3.5-5.0 Sep 01, 2013 calcium, serum CALCIUM 9.6 mg/dL 8.5-10.5 Sep 01, 2013 alanine aminotransferase (SGPT), serum SGPT (ALT) 21 U/L 0-65 Sep 01, 2013 aspartate aminotransferase (SGOT), serum SGOT (AST) 21 U/L 0-37 Sep 01, 2013 alkaline phosphatase, serum ALK PHOS 62 U/L 39-136 Nov 01, 2012 Helicobacter pylori antibody, IgG, serum HELICOB IGG <0.4 U/mL null May 31, 2012 occult blood, stool (E&M) HEMOCCULT Negative null Negative May 31, 2012 occult blood, stool (E&M) HEMOCCULT Negative null Negative May 31, 2012 occult blood, stool (E&M) HEMOCCULT Negative null Negative May 12, 2013 occult blood, stool (E&M) HEMOCCULT Negative null Negative August 03, 2004 vaginal Pap smear results PAP SMEAR Done null August 03, 2004 vaginal Pap smear results PAP SMEAR Done null
--- OUTSIDE RECORDS SUMMARY | 2018-03-19 08:05 | XMS REPORT | Continuity of Care Document ---
Author Author [facility] Organization [facility] Address Unknown Phone Unavailable Care Team Providers Care Batch And Furnace Operator Name Role Phone MD Ambrose, Mechelle SHAH Unavailable Insurance Providers Payer name Policy type / Coverage type Policy ID Covered constitution party ID Policy [place]: [facility] [place]: [place] - [place] - TRADITIONAL [...] MEDICARE B-[place]: [employer] MEDICARE B-[place]: [employer] [facility] (MEDICARE REPLACEMENT HMO) [place] ACS - [...] Location Date Lab Report Mechelle Boggs MD [facility] Nov 01, 2013 Allergies, Adverse Reactions, Alerts Type [...] smoker Jun 02, 2012 mammogram Completed at [facility] Nov 10, 2012 smoking status never smoker Nov 12, 2012 smoking status never smoker Feb 15, 2013 smoking status never smoker Jun 02, 2013 mammogram Completed at [facility] Sep 01, 2013 smoking status Never smoker [...] 26, 2012 Inactive COREG CR 80 MG [id number] 1 po qd May 26, 2012 Inactive [...] daily Feb 15, 2013 Inactive VITAMIN D3 28308 UNIT CAPS 1 po qd May 26, [...] 2013 urea nitrogen, blood BUN 15 mg/dL -Sep 01, 2013 urea nitrogen/creatinine ratio, serum BUN/CREAT [...]
--- OUTSIDE RECORDS SUMMARY | 2018-03-19 08:05 | XMS REPORT | Continuity of Care Document ---
Author Author [facility] Organization [facility] Address Unknown Phone Unavailable Care Team Providers Care Securities Clerk Name Role Phone MD Ambrose, Mechelle SHAH Unavailable Insurance Providers Payer name Policy type / Coverage type Policy ID Covered democrat ID Policy [place] MEDICARE B-[place]: [facility] MEDICAID-[place]: ACS - TMHP - TRADITIONAL [...] MEDICARE B-TX: NOVITAS SOLUTIONS MEDICARE B-[place]: NOVITAS [employer] (acquired by [employer] in 2014) [facility] (MEDICARE REPLACEMENT HMO) MEDICAID-[place]: ACS - [...] SOLUTIONS MEDICAID-[place]: ACS - TMHP - [employer] (MEDICARE REPLACEMENT HMO) MEDICARE B-TX: [employer]AS [employer] MEDICARE B-TX: [employer] MEDICARE B-[place]: [place] [place]: ACS - TMHP - [employer] (MEDICARE REPLACEMENT HMO) MEDICARE B-TX: [employer] MED[place]ID-[place]: ACS - TMHP - [employer] (MEDICARE REPLACEMENT HMO) MEDICARE B-TX: [employer] MED[place]ID-[place]: ACS - TMHP - [employer] (MEDICARE REPLACEMENT HMO) MEDICARE B-TX: [employer] MED[place]ID-[place]: ACS - TMHP - [employer] (MEDICARE REPLACEMENT HMO) MEDICARE B-TX: [employer] MEDICAID-[place]: ACS - TMHP - [employer] (MEDICARE REPLACEMENT HMO) MEDICARE B-TX: [employer] MEDICAID-[place]: ACS - TMHP - [employer] (MEDICARE REPLACEMENT HMO) MEDICARE B-TX: [employer] MED[place]ID-[place]: ACS - TMHP - [employer] (MEDICARE REPLACEMENT HMO) MEDICARE B-TX: [employer]AS [employer] MED[place]ID-[place]: ACS - TMHP - [employer] (MEDICARE REPLACEMENT HMO) MEDICARE B-TX: [employer] MEDICAID-[place]: ACS - TMHP - [employer] (MEDICARE REPLACEMENT HMO) MEDICARE B-TX: [employer] MEDICAID-[place]: ACS - TMHP - [employer] (MEDICARE REPLACEMENT HMO) MEDICARE B-TX: [employer] MED[place]ID-[place]: ACS - TMHP - [employer] (MEDICARE REPLACEMENT HMO) Encounters Encounter Performer Location Date Lab Report Mechelle Boggs MD [facility] Sep 19, 2014 Allergies, Adverse Reactions, Alerts Type Substance Reaction Status Drug allergy ASPIRIN per patient does not have an allergy Active Problems Problem Effective Dates Problem Status DYSLIPIDEMIA Inactive HYPERTENSION, BENIGN Inactive OSTEOARTHRITIS Inactive SCREENING, COLON CANCER May 26, 2012 Active LABORATORY EXAMINATION UNSPECIFIED May 26, 2012 Inactive LONG-TERM (CURRENT) USE OF ANTICOAGULANTS May 26, 2012 Inactive PHYSICAL EXAM May 26, 2012 Inactive HEADACHE Jul 05, 2012 Inactive FATIGUE Jul 05, 2012 Inactive GERD Inactive THYROID MASS Nov 01, 2012 Inactive NECK PAIN Nov 01, 2012 Inactive CHEST PAIN Nov 01, 2012 Inactive NEED PROPHYLACTIC VACCINATION&INOCULATION FLU Nov 01, 2012 Active THYROID NODULE Nov 05, 2012 Inactive CAD Nov 10, 2012 Inactive 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 10, 2012 Inactive HYPERTENSION - ESSENTIAL - UNCONTROLLED Nov 10, 2012 Inactive WEAKNESS Nov 10, 2012 Inactive 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, 2012 Active OTHER SCREENING MAMMOGRAM Feb 15, 2013 Active POSTMENOPAUSAL STATUS Feb 15, 2013 Inactive ESSENTIAL HYPERTENSION, BENIGN Feb 15, 2013 Active HYPOTHYROIDISM Feb 15, 2013 Active HYPERLIPIDEMIA Feb 15, 2013 Active SINUSITIS Feb 15, 2013 Inactive ROUTINE GYNECOLOGICAL EXAMINATION Feb 15, 2013 Inactive THYROID DISORDER May 04, 2013 Inactive PREVENTIVE HEALTH CARE May 12, 2013 Inactive SCREENING FOR GLAUCOMA May 12, 2013 Active SCREENING, COLON CANCER May 12, 2013 Inactive DYSPHAGIA UNSPECIFIED May 12, 2013 Inactive DYSPEPSIA May 12, 2013 Inactive DYSPNEA May 12, 2013 Inactive IMPAIRED FASTING GLUCOSE May 13, 2013 Inactive NONSPECIFIC ABNORMAL RESULTS LIVR FUNCTION STUDY Jun 02, 2013 Inactive ACUTE BRONCHITIS Jul 04, 2013 Inactive CKD STAGE III (MODERATE) GFR 30-59 Sep 01, 2013 Active GASTRITIS Dec 23, 2013 Inactive NEED FOR PROPHYLACTIC VACCINATION AND INOCULATION AGAINST INFLUENZA Dec 23, 2013 Active CARCINOMA, 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 04, 2014 Active IMPAIRED FASTING GLUCOSE Jun 01, 2014 Active BODY MASS INDEX LESS THAN 19, ADULT Sep 18, 2014 Active PREVENTIVE HEALTH CARE Sep 18, 2014 Active WEAKNESS Sep 18, 2014 Active UNSTEADY GAIT Sep 18, 2014 Active Procedures Date Description Comments Oct 15, 2010 mammogram Done August 03, 2004 vaginal Pap smear results Done Oct 15, 2010 mammogram Done August 03, 2004 vaginal Pap smear results Done May 26, 2012 smoking status never smoker Jun 02, 2012 mammogram Completed at [facility] Nov 10, 2012 smoking status never smoker Nov 12, 2012 smoking status never smoker Feb 15, 2013 smoking status never smoker Jun 02, 2013 mammogram Completed at [facility] Sep 01, 2013 smoking status Never smoker Dec 23, 2013 smoking status Never smoker May 04, 2014 smoking status Never smoker Jun 01, 2014 smoking status Never smoker Sep 18, 2014 smoking status Never smoker Medications Medication Instructions Start Date Status PRAVASTATIN SODIUM 40 MG TABS 1 po qd Jun 11, 2012 Inactive SINGULAIR 10 MG TAB 1 po q hs May 26, 2012 Inactive COREG CR 80 MG [id number] 1 po qd May 26, 2012 Inactive [...] times a day Feb 15, 2013 Inactive ASPIRIN LOW DOSE 81 MG TABS 1 PO Daily May 26, 2012 Inactive EDARBI 40 MG TABS 1 po once a day Nov 01, 2012 Inactive CALTRATE 600+D TABS 1 tab by mouth daily Feb 15, 2013 Inactive VITAMIN D3 82884 UNIT CAPS 1 po qd May 26, 2012 Inactive VITAMIN D3 1000 IU 1 tab by mouth daily Feb 15, 2013 Inactive BISOPROLOL-HYDROCHLOROTHIAZIDE 2.5-6.25 MG TABS .Take one tablet by mouth once a day Jun 21, 2013 Inactive ZITHROMAX Z-GINO 250 MG TABS use as directed Jul 04, 2013 Inactive NEXIUM 40 MG PACK 1 tab by mouth daily Feb 15, 2013 Inactive BISOPROLOL-HYDROCHLOROTHIAZIDE 2.5-6.25 MG TABS Take one tablet by mouth at bed time--provide patient education Jun 21, 2013 Active NITROSTAT 0.4 MG SUBL 1 po as needed May 26, 2012 Inactive LEVOTHYROXINE SODIUM 88 MCG TABS Take one tablet by mouth once a day 30 minutes before breakfast Feb 15, 2013 Active CALTRATE 600+D 600-400 MG-UNIT TABS 1 PO twice Daily May 26, 2012 Inactive VENTOLIN HFA 108 (90 BASE) MCG/ACT AERS 2 puff every 6 hours as needed Jul 04, 2013 Inactive FLUTICASONE PROPIONATE 50 MCG/ACT SUSP 2 sprays per nostril once a day Jun 21, 2013 Inactive NEXIUM 40 MG PACK Take one tablet by mouth once a day Oct 18, 2012 Inactive NATURE MADE MAGNESIUM 250MG 1 tab by mouth daily Feb 15, 2013 Inactive CENTRUM SILVER TABS 1 tab by mouth daily Feb 15, 2013 Inactive NAPHCON-A 0.025-0.3 % SOLN 1 drop in eye as needed Jun 21, 2013 Inactive METOCLOPRAMIDE HCL 5 MG TABS take 1 tab by mouth every 6 hours as needed Sep 18, 2014 Active MARINOL 2.5 MG CAPS take 1 tab by mouth at bedtime Sep 18, 2014 Active B COMPLEX take q tab by mouth daily Sep 18, 2014 Active VITAMIN D3 2000IU take 1 tab by mouth daily Sep 18, 2014 Active Immunizations Vaccine Date Status influenza immunization [...] RATE 65 /min Jun 21, 2013 weight E&Chapis - 3141-9 WEIGHT 104 lb Jul 04, [...] weight E&M - 3141-9 WEIGHT 103 lb Sep 01, 2013 respiratory rate E&M - 9279-1 RESP RATE 16 /min Sep 01, 2013 temperature E&M TEMPERATURE 98.0 deg f Sep 01, 2013 blood pressure, systolic - 8480-6 BP SYSTOLIC 116 mm Hg Sep 01, 2013 blood pressure, diastolic - 8462-4 BP DIASTOLIC 65 mm Hg Sep 01, 2013 pulse rate E&M - 8867-4 PULSE RATE 62 /min Sep 01, 2013 weight E&M - 3141-9 WEIGHT 104 lb Dec 23, 2013 respiratory rate E&M - 9279-1 RESP RATE 16 /min Dec 23, 2013 blood pressure, systolic - 8480-6 BP SYSTOLIC 125 mm Hg Dec 23, 2013 blood pressure, diastolic - 8462-4 BP DIASTOLIC 66 mm Hg Dec 23, 2013 pulse rate E&M - 8867-4 PULSE RATE 64 /min Dec 23, 2013 weight E&M - 3141-9 WEIGHT 105 lb Dec 23, 2013 height E&M - 8302-2 HEIGHT 63 in Dec 23, 2013 temperature E&M TEMPERATURE 97.3 deg f May 04, 2014 height E&M - 8302-2 HEIGHT 63 in May 04, 2014 weight E&M - 3141-9 WEIGHT 108 lb May 04, 2014 temperature E&M TEMPERATURE 97.5 deg f May 04, 2014 respiratory rate E&M - 9279-1 RESP RATE 16 /min May 04, 2014 pulse rate E&M - 8867-4 PULSE RATE 68 /min May 04, 2014 blood pressure, systolic - 8480-6 BP SYSTOLIC 122 mm Hg May 04, 2014 blood pressure, diastolic - 8462-4 BP DIASTOLIC 71 mm Hg Jun 01, 2014 blood pressure, systolic - 8480-6 BP SYSTOLIC 123 mm Hg Jun 01, 2014 blood pressure, diastolic - 8462-4 BP DIASTOLIC 75 mm Hg Jun 01, 2014 pulse rate E&M - 8867-4 PULSE RATE 70 /min Jun 01, 2014 respiratory rate E&M - 9279-1 RESP RATE 16 /min Jun 01, 2014 height E&M - 8302-2 HEIGHT 63 in Jun 01, 2014 weight E&M - 3141-9 WEIGHT 108 lb Jun 01, 2014 temperature E&M TEMPERATURE 97.1 deg f Sep 18, 2014 height E&M - 8302-2 HEIGHT 63 in Sep 18, 2014 weight E&M - 3141-9 WEIGHT 97 lb Sep 18, 2014 temperature E&M TEMPERATURE 97.0 deg f Sep 18, 2014 respiratory rate E&M - 9279-1 RESP RATE 14 /min Sep 18, 2014 pulse rate E&M - 8867-4 PULSE RATE 86 /min Sep 18, 2014 blood pressure, systolic - 8480-6 BP SYSTOLIC 138 mm Hg Sep 18, 2014 blood pressure, diastolic - 8462-4 BP DIASTOLIC 81 mm Hg Results Date Description Test Name [...] count PLATELETS 184 K/CMM /mm3 133-450 May 10, 2014 hemoglobin, blood HGB 12.1 g/dL 12.0-16.0 May 10, 2014 hematocrit, blood HCT 36.6 % 36.0-48.0 May 10, 2014 platelet count PLATELETS 167 K/CMM /mm3 133-450 Sep 19, 2014 hemoglobin, blood HGB 12.5 g/dL 12.0-16.0 Sep 19, 2014 hematocrit, blood HCT 38.8 % 36.0-48.0 Sep 19, 2014 platelet count PLATELETS 202 K/CMM /mm3 133-450 May 31, 2012 occult blood, stool (E&M) HEMOCCULT Negative null Negative May 31, 2012 occult blood, stool (E&M) HEMOCCULT Negative null Negative Sep 01, 2013 sodium, serum SODIUM 138 [...] serum ALK PHOS 62 U/L 39-136 May 10, 2014 cholesterol, serum CHOLESTEROL 225 mg/dl <=199 High May 10, 2014 triglyceride, serum, fasting TRIGLYCERIDE 76 mg/dl <=149 May 10, 2014 HDL cholesterol, serum HDL 110 mg/dl >=61 May 10, 2014 LDL cholesterol, serum LDL 100 mg/dl <=99 High May 10, 2014 sodium, serum SODIUM 137 MEQ/L mmol/L 135-145 May 10, 2014 potassium, serum POTASSIUM 4.2 MEQ/L mmol/L 3.5-5.1 May 10, 2014 creatinine, serum CREATININE 1.2 mg/dL 0.5-1.4 May 10, 2014 urea nitrogen, blood BUN 20 mg/dL 7-May 10, 2014 urea nitrogen/creatinine ratio, serum BUN/CREAT 17 null 6-25 May 10, 2014 albumin, serum ALBUMIN 4.0 g/dL 3.5-5.0 May 10, 2014 calcium, serum CALCIUM 9.7 mg/dL 8.5-10.5 May 10, 2014 alanine aminotransferase (SGPT), serum SGPT (ALT) 15 U/L 0-65 May 10, 2014 aspartate aminotransferase (SGOT), serum SGOT (AST) 16 U/L 0-37 May 10, 2014 alkaline phosphatase, serum ALK PHOS 70 U/L 39-136 May 10, 2014 thyroxine, serum, free T4, FREE 1.26 ng/dl 0.76-1.46 May 10, 2014 thyroid stimulating hormone, serum TSH 10.200 uIU/mL 0.360-3.740 High May 10, 2014 hemoglobin A1C, blood, as % of total hemoglobin HGBA1C 5.8 % <=5.6 High Sep 19, 2014 hemoglobin A1C, blood, as % of total hemoglobin HGBA1C 6.0 % <=5.6 High Sep 19, 2014 thyroid stimulating hormone, serum TSH 0.733 uIU/mL 0.360-3.740 Sep 19, 2014 cholesterol, serum CHOLESTEROL 165 mg/dl <=199 Sep 19, 2014 triglyceride, serum, fasting TRIGLYCERIDE 68 mg/dl <=149 Sep 19, 2014 HDL cholesterol, serum HDL 82 mg/dl >=61 Sep 19, 2014 LDL cholesterol, serum LDL 69 mg/dl <=99 Sep 19, 2014 sodium, serum SODIUM 140 MEQ/L mmol/L 135-145 Sep 19, 2014 potassium, serum POTASSIUM 4.0 MEQ/L mmol/L 3.5-5.1 Sep 19, 2014 creatinine, serum CREATININE 1.0 mg/dL 0.5-1.4 Sep 19, 2014 urea nitrogen, blood BUN 10 mg/dL 7-Sep 19, 2014 urea nitrogen/creatinine ratio, serum BUN/CREAT 10 null 6-25 Sep 19, 2014 albumin, serum ALBUMIN 3.6 g/dL 3.5-5.0 Sep 19, 2014 calcium, serum CALCIUM 9.5 mg/dL 8.5-10.5 Sep 19, 2014 alanine aminotransferase (SGPT), serum SGPT (ALT) 20 U/L 0-65 Sep 19, 2014 aspartate aminotransferase (SGOT), serum SGOT (AST) 18 U/L 0-37 Sep 19, 2014 alkaline phosphatase, serum ALK PHOS 63 U/L 39-136 Nov 01, 2012 Helicobacter pylori antibody, IgG, serum HELICOB IGG <0.4 U/mL null August 03, 2004 vaginal Pap smear results PAP SMEAR Done null August 03, 2004 vaginal Pap smear results PAP SMEAR Done null
--- OUTSIDE RECORDS SUMMARY | 2018-03-19 08:06 | XMS REPORT | Continuity of Care Document ---
Author Author [facility] Organization [facility] Address Unknown Phone Unavailable Care Team Providers Care Lending Manager Name Role Phone MD Ambrose, Mechelle SHAH Unavailable Insurance Providers Payer name Policy type / Coverage type Policy ID Covered republican ID Policy [place] MED[place]: [facility] MEDICAID-[place]: ACS - TMHP - TRADITIONAL [...] MEDICARE B-[place]: [employer]OVITAS [employer] MEDICARE B-[place]: NOVITAS [place] [facility] (MEDICARE REPLACEMENT HMO) [place]: ACS - [...] Location Date Office Visit Mechelle Boggs MD [facility] Dec 23, 2013 Allergies, Adverse Reactions, Alerts Type [...] Active ROUTINE GYNECOLOGICAL EXAMINATION Feb 15, 2013 Inactive THYROID DISORDER May 04, 2013 Inactive PREVENTIVE HEALTH CARE May 12, 2013 Inactive SCREENING FOR GLAUCOMA May 12, 2013 Active SCREENING, COLON CANCER May 12, 2013 Inactive DYSPHAGIA UNSPECIFIED May 12, 2013 Active DYSPEPSIA May 12, 2013 Inactive DYSPNEA May 12, 2013 Active IMPAIRED FASTING GLUCOSE May 13, 2013 Active NONSPECIFIC ABNORMAL RESULTS LIVR FUNCTION STUDY Jun 02, 2013 Inactive ACUTE BRONCHITIS Jul 04, 2013 Inactive CKD STAGE II (MILD) GFR 60-89 Sep 01, 2013 Active GASTRITIS Dec 23, 2013 Active NEED FOR PROPHYLACTIC VACCINATION AND INOCULATION AGAINST INFLUENZA Dec 23, 2013 Active Procedures Date Description Comments Oct 15, 2010 mammogram Done August 03, 2004 vaginal Pap smear results Done Oct 15, 2010 mammogram Done August 03, 2004 vaginal Pap smear results Done May 26, 2012 smoking status never smoker Jun 02, 2012 mammogram Completed at [facility] Nov 10, 2012 smoking status never smoker Nov 12, 2012 smoking status never smoker Feb 15, 2013 smoking status never smoker Jun 02, 2013 mammogram Completed at [facility] Sep 01, 2013 smoking status Never smoker Dec 23, 2013 smoking status Never smoker Medications Medication [...] 26, 2012 Inactive COREG CR 80 MG [id number] 1 po qd May 26, 2012 Inactive [...] daily Feb 15, 2013 Inactive VITAMIN D3 40909 UNIT CAPS 1 po qd May 26, [...] 04, 2013 Inactive NEXIUM 40 MG PACK Take one tablet by mouth once a day Oct 18, 2012 Active NEXIUM 40 MG PACK 1 tab by mouth daily Feb 15, 2013 Inactive LEVOTHYROXINE SODIUM 75 MCG TABS Take one tablet by mouth once a day 30 minutes before breakfast Feb 15, 2013 Active Immunizations Vaccine Date Status influenza [...] 2013 temperature E&M TEMPERATURE 97.3 deg f Results Date Description Test Name Value Reference [...]
--- OUTSIDE RECORDS SUMMARY | 2018-03-19 08:06 | XMS REPORT | Continuity of Care Document ---
Author Author [facility] Organization [facility] Address Unknown Phone Unavailable Care Team Providers Care Samples And Repairs Preparer Name Role Phone MD Ambrose, Mechelle SHAH Unavailable Insurance Providers Payer name Policy type / Coverage type Policy ID Covered republican ID Policy [place] MEDICARE B-[place]: [facility] MED[place]ID-[place]: ACS - TMHP - TRADITIONAL MEDICARE [...] MEDICARE B-[place]: [employer] MEDICARE B-[place]: NOVITAS [employer] [facility] (MEDICARE REPLACEMENT HMO) [place]: ACS - [...] REPLACEMENT HMO) Encounters Encounter Performer Location Date Office Visit Mechelle Boggs MD [facility] Sep 18, 2014 Allergies, Adverse Reactions, Alerts Type Substance [...] 02, 2012 mammogram Completed at [facility] Nov 10, 2012 smoking status never smoker Nov 12, 2012 smoking status never smoker Feb 15, 2013 smoking status never smoker Jun 02, 2013 mammogram Completed at [facility] Sep 01, 2013 smoking status Never smoker [...] 26, 2012 Inactive COREG CR 80 MG [id number] 1 po qd May 26, 2012 Inactive [...] daily Feb 15, 2013 Inactive VITAMIN D3 56121 UNIT CAPS 1 po qd May 26, [...] 2014 urea nitrogen, blood BUN 20 mg/dL 7-22 May 10, 2014 urea nitrogen/creatinine ratio, serum BUN/CREAT 17 null 6-May 10, 2014 albumin, serum ALBUMIN 4.0 g/dL [...] total hemoglobin HGBA1C 5.8 % <=5.6 High Nov 01, 2012 Helicobacter pylori antibody, IgG, serum HELICOB IGG <0.4 U/mL null August 03, 2004 vaginal Pap smear results PAP SMEAR Done null August 03, 2004 vaginal Pap smear results PAP SMEAR Done null
--- OUTSIDE RECORDS SUMMARY | 2018-03-19 08:07 | XMS REPORT | Continuity of Care Document ---
Author Author [facility] Organization [facility] Address Unknown Phone Unavailable Care Team Providers Care Systems Coordinator Name Role Phone MD Ambrose, Mechelle SHAH Unavailable Insurance Providers Payer name Policy type / Coverage type Policy ID Covered alliance party ID Policy [place] MEDICARE B-[place]: [facility] MEDICAID-[place]: ACS - TMHP - TRADITIONAL [...] MEDICARE B-[place]: [employer]AS [employer] MEDICARE B-[place]: NOVITAS [place] [facility] (MEDICARE REPLACEMENT HMO) [place]: ACS - TMHP [...] Location Date Lab Report Mechelle Boggs MD [facility] May 10, 2014 Allergies, Adverse Reactions, Alerts Type Substance [...] Active CARCINOMA, STOMACH May 04, 2014 Active Procedures Date Description Comments Oct 15, 2010 mammogram Done August 03, 2004 vaginal Pap smear results Done Oct 15, 2010 mammogram Done August 03, 2004 vaginal Pap smear results Done May 26, 2012 smoking status never smoker Jun 02, 2012 mammogram Completed at [facility] Nov 10, 2012 smoking status never smoker Nov 12, 2012 smoking status never smoker Feb 15, 2013 smoking status never smoker Jun 02, 2013 mammogram Completed at [facility] Sep 01, 2013 smoking status Never smoker Dec 23, 2013 smoking status Never smoker May 04, 2014 smoking status Never smoker Medications Medication Instructions Start Date Status CALTRATE 600+D 600-400 MG-UNIT TABS 1 PO twice Daily May 26, 2012 Active PRAVASTATIN SODIUM 40 MG TABS 1 po qd Jun 11, 2012 Inactive SINGULAIR 10 MG TAB 1 po q hs May 26, 2012 Inactive COREG CR 80 MG [id number] 1 po qd May 26, 2012 Inactive [...] daily Feb 15, 2013 Inactive VITAMIN D3 73375 UNIT CAPS 1 po qd May 26, [...] minutes before breakfast Feb 15, 2013 Active BISOPROLOL-HYDROCHLOROTHIAZIDE 2.5-6.25 MG TABS Take one tablet by mouth at bed time--provide patient education Jun 21, 2013 Active NITROSTAT 0.4 MG SUBL 1 po as needed May 26, 2012 Inactive Immunizations Vaccine Date Status influenza immunization [...] HEIGHT 63 in Feb 15, 2013 weight Magaly&M - 3141-9 WEIGHT 110.50 lb Feb 15, [...] - 8462-4 BP DIASTOLIC 71 mm Hg Results Date Description Test Name [...] urea nitrogen/creatinine ratio, serum BUN/CREAT 14 null 6-Sep 01, 2013 albumin, serum ALBUMIN 4.2 g/dL [...]
--- OUTSIDE RECORDS SUMMARY | 2018-03-19 08:07 | XMS REPORT | Continuity of Care Document ---
Author Author [facility] Organization [facility] Address Unknown Phone Unavailable Care Team Providers Care Supervisor Malted Milk Name Role Phone MD Ambrose, Mechelle SHAH Unavailable Insurance Providers Payer name Policy type / Coverage type Policy ID Covered democrat ID Policy [place] MEDICARE B-[place]: [facility] MEDICAID-[place]: ACS - TMHP - TRADITIONAL MEDICARE [...] MEDICARE B-[place]: [employer] MEDICARE B-[place]: [employer]OVITAS [employer] [facility] (MEDICARE REPLACEMENT HMO) [place]: ACS - TMHP [...] Location Date Office Visit Mechelle Boggs MD [facility] May 04, 2014 Allergies, Adverse Reactions, Alerts Type Substance [...] smoker Jun 02, 2012 mammogram Completed at [facility] Nov 10, 2012 smoking status never smoker Nov 12, 2012 smoking status never smoker Feb 15, 2013 smoking status never smoker Jun 02, 2013 mammogram Completed at [facility] Sep 01, 2013 smoking status Never [...] 26, 2012 Inactive COREG CR 80 MG [id number] 1 po qd May 26, 2012 Inactive [...] daily Feb 15, 2013 Inactive VITAMIN D3 56768 UNIT CAPS 1 po qd May 26, [...]
--- OUTSIDE RECORDS SUMMARY | 2018-03-19 08:07 | XMS REPORT | Continuity of Care Document ---
Author Author [facility] Organization [facility] Address Unknown Phone Unavailable Care Team Providers Care Slab Grinder Name Role Phone MD Ambrose, Mechelle SHAH Unavailable Insurance Providers Payer name Policy type / Coverage type Policy ID Covered green party ID Policy [place] MEDICARE B-[place]: [facility] [place]ID-[place]: ACS - TMHP - TRADITIONAL [...] MEDICARE B-[place]: [employer] MEDICARE B-[place]: NOVITAS [employer] [facility] (MEDICARE REPLACEMENT HMO) [place]: ACS - [...] Location Date Office Visit Mechelle Boggs MD [facility] May 04, 2014 Allergies, Adverse [...] smoker Jun 02, 2012 mammogram Completed at [facility] Nov 10, 2012 smoking status never smoker Nov 12, 2012 smoking status never smoker Feb 15, 2013 smoking status never smoker Jun 02, 2013 mammogram Completed at [facility] Sep 01, 2013 smoking status Never smoker [...] 26, 2012 Inactive COREG CR 80 MG [id number] 1 po qd May 26, 2012 Inactive [...] daily Feb 15, 2013 Inactive VITAMIN D3 54502 UNIT CAPS 1 po qd May 26, [...] hormone, serum TSH 10.200 uIU/mL 0.360-3.740 High Nov 01, 2012 Helicobacter pylori antibody, IgG, serum HELICOB IGG <0.4 U/mL null August 03, 2004 vaginal Pap smear results PAP SMEAR Done null August 03, 2004 vaginal Pap smear results PAP SMEAR Done null
--- OUTSIDE RECORDS SUMMARY | 2018-03-19 08:08 | XMS REPORT | Continuity of Care Document ---
Author Author [facility] Organization [facility] Address Unknown Phone Unavailable Care Team Providers Care Hotel Superintendent Name Role Phone MD Ambrose, Mechelle SHAH Unavailable Insurance Providers Payer name Policy type / Coverage type Policy ID Covered libertarian ID Policy [place] MEDICARE B-[place]: [facility] MEDICAID-[place]: ACS - TMHP - TRADITIONAL [...] MEDICARE B-[place]: [employer] MEDICARE B-[place]: NOVITAS [employer] [facility] (MEDICARE REPLACEMENT HMO) [place]: ACS - [...] Location Date Office Visit Mechelle Boggs MD [facility] Jun 01, 2014 Allergies, Adverse Reactions, Alerts Type Substance [...] IMPAIRED FASTING GLUCOSE Jun 01, 2014 Active Procedures Date Description Comments Oct 15, 2010 mammogram Done August 03, 2004 vaginal Pap smear results Done Oct 15, 2010 mammogram Done August 03, 2004 vaginal Pap smear results Done May 26, 2012 smoking status never smoker Jun 02, 2012 mammogram Completed at [facility] Nov 10, 2012 smoking status never smoker Nov 12, 2012 smoking status never smoker Feb 15, 2013 smoking status never smoker Jun 02, 2013 mammogram Completed at [facility] Sep 01, 2013 smoking status Never smoker Dec 23, 2013 smoking status Never smoker May 04, 2014 smoking status Never smoker Jun 01, 2014 smoking status Never smoker Medications Medication Instructions Start Date Status CALTRATE 600+D 600-400 MG-UNIT TABS 1 PO twice Daily May 26, 2012 Active PRAVASTATIN SODIUM 40 MG TABS 1 po qd Jun 11, 2012 Inactive SINGULAIR 10 MG TAB 1 po q hs May 26, 2012 Inactive COREG CR 80 MG [id number] 1 po qd May 26, 2012 Inactive [...] daily Feb 15, 2013 Inactive VITAMIN D3 11232 UNIT CAPS 1 po qd May 26, [...] RATE 65 /min May 12, 2013 weight Magaly&M - 3141-9 WEIGHT 107 lb Jun 21, [...] 2014 temperature E&M TEMPERATURE 97.1 deg f Results Date Description Test Name [...] 2013 urea nitrogen, blood BUN 18 mg/dL 7-22 May 12, 2013 urea nitrogen/creatinine ratio, serum BUN/CREAT [...]
--- OUTSIDE RECORDS SUMMARY | 2018-03-19 08:08 | XMS REPORT | Continuity of Care Document ---
Author Author [facility] Organization [facility] Address Unknown Phone Unavailable Care Team Providers Care Knockdown Worker Name Role Phone MD Ambrose, Mechelle SHAH Unavailable Insurance Providers Payer name Policy type / Coverage type Policy ID Covered green party ID Policy [place] [id number] [place] ACS - [place] - [...] [place]: [employer] [place]: [employer] [facility] (MEDICARE REPLACEMENT HMO) [place] - [...] Date Office Visit Mechelle Boggs MD [facility] Jun 01, 2014 Allergies, [...] smoker Jun 02, 2012 mammogram Completed at [facility] Nov 10, 2012 smoking status never smoker Nov 12, 2012 smoking status never smoker Feb 15, 2013 smoking status never smoker Jun 02, 2013 mammogram Completed at [facility] Sep 01, 2013 smoking status Never [...] 26, 2012 Inactive COREG CR 80 MG [id number] 1 po qd May 26, 2012 Inactive [...] daily Feb 15, 2013 Inactive VITAMIN D3 64137 UNIT CAPS 1 po qd May 26, [...]
--- OUTSIDE RECORDS SUMMARY | 2018-03-19 08:08 | XMS REPORT ---
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 Allergies, Adverse Reactions, Alerts This patient has no known allergies or adverse reactions. Medications This patient has no known medications. Results Test Description Test Time Test Comments Text Results Atomic Results Result Comments CHEST 2 VIEWS 2018-03-16 12:16:00 [facility] [address] [address] Patient Name: JULIENNE ALONSO MR #: [id number] : 1940 Age/Sex: 77/F Req #: [id number] Adm Physician: Ordered by: LUIS PIZANO MD Report #: [id number] Location: OR Room/Bed: Procedure: [id number] DX/CHEST 2 VIEWS Exam Date: 03/16/18 Exam Time: 1130 REPORT STATUS: Signed EXAMINATION: CHEST 2 VIEWS INDICATION: MD ORDER [id number] 1130 PRE ADMIT COMPARISON: 07/23/2016 FINDINGS: PA and lateral views TUBES and LINES: None. LUNGS: Lungs are well inflated. Mildly increased right midlung haziness, adjacent to the scapula. PLEURA: No pleural effusion or pneumothorax. HEART AND MEDIASTINUM: The cardiomediastinal silhouette is unremarkable. BONES AND SOFT TISSUES: No acute osseous lesion. Soft tissues are unremarkable. UPPER ABDOMEN: No free air under the diaphragm. IMPRESSION: Mildly increased right midlung haziness, not significantly changed from prior exam, may be related to overlying soft tissues versus atelectasis/scarring. Developing infiltrate cannot be entirely excluded in the appropriate clinical setting. Signed by: Dr. Dawood Pineda MD on 03/16/2018 12:19 PM Dictated By: DAWOOD PINEAD MD Transcribed By: JUDY on 03/16/18 1219 COPY TO: LUIS PIZANO MD CHEST 2 VIEWS [address] [address] Patient Name: JULIENNE ALONSO MR #: [id number] : 1940 Age/Sex: 77/F Req #: [id number] Adm Physician: Ordered by: LUIS PIZANO MD Report #: [id number] Location: CT Room/Bed: Procedure: [id number] DX/CHEST 2 VIEWS Exam Date: 08/10/17 Exam Time: 0800 REPORT STATUS: Signed PROCEDURE: CHEST 2 VIEWS TECHNIQUE: PA and lateral chest INDICATION: Shortness of breath COMPARISON: [facility], DX, CHEST 2 VIEWS, 07/23/2016, 6:01. FINDINGS: Interval removal of a left subclavian portacatheter relative to July 2016. Lungs are clear and symmetrically inflated. No pleural effusions. Normal heart size and contour and pulmonary vasculature. Right humeral surgical screws. CONCLUSION: No acute abnormality. Dictated by: Quique Fried M.D. on 08/10/2017 at 8:22 Electronically approved by: Quique Fried M.D. on 08/10/2017 at 8:22 Dictated By: QUIQUE FRIED MD 1 Transcribed By: PRIETO on 08/10/17821 COPY TO: LUIS PIZANO MD CT ABDOMEN/PELVIS W [facility] [address] [address] Patient Name: JULIENNE ALONSO MR #: [id number] : 1940 Age/Sex: 77/F Req #: [id number] Adm Physician: Ordered by: LUIS PIZANO MD Report #: [id number] Location: CT Room/Bed: Procedure: [id number] CT/CT ABDOMEN/PELVIS W Exam Date: Exam Time: REPORT STATUS: Signed PROCEDURE: CT ABDOMEN AND PELVIS WITH CONTRAST COMPARISON: [facility], CT, CT ABDOMEN/PELVIS W, 07/17/2017, 23:50. INDICATIONS: follow up stomach cancer TECHNIQUE: Routine protocol Volumetric CT abdomen after ministration of 100 mL Isovue-370 intravenous contrast and 900 mm positive enteric contrast. Multiplanar reformatted images. DLP: 227.3 FINDINGS: Clear lung bases. No pleural effusions. Normal heart size. Liver: Normal Gallbladder: Normal. Common bile duct dilation up to 1 cm. No intrahepatic duct dilation. Pancreas: Normal Spleen: Splenectomy Adrenal glands: Normal Kidneys: Simple left cyst. Otherwise, normal Urinary bladder: Normal Uterus and adnexa: Normal Bowel: Postoperative sequela of gastrectomy. Otherwise, normal. Normal appendix. Peritoneum: Normal Vasculature: Normal caliber. Trace atherosclerosis. Lymph nodes: Normal Skeleton: Intact. No lytic or blastic lesions. Multilevel degenerative disc disease. Waldron left scoliosis centered at L2. Soft tissues: Normal. CONCLUSION: 1. No acute abnormality. No interval change relative to July 2017. 2. No conspicuous hepatic mass on single phase imaging. Dictated by: Quique Fried M.D. on 08/10/2017 at 10:22 Electronically approved by: Quique Fried M.D. on 08/10/2017 at 10:22 Dictated By: QUIQUE FRIED MD 1022 Transcribed By: PRIETO on 08/10/17 1022 COPY TO: LUIS PIZANO MD CT ABDOMEN/PELVIS W [address] [address] Patient Name: JULIENNE ALONSO MR #: [id number] : 1940 Age/Sex: 77/F Req #: [id number] Adm Physician: Ordered by: AMBER MARIE MD Report #: [id number] Location: ER Room/Bed: Procedure: [id number] CT/CT ABDOMEN/PELVIS W Exam Date: 07/18/17 Exam Time: 2350 REPORT STATUS: Signed EXAM: CT ABDOMEN/PELVIS W DATE: 07/17/2017 10:25 PM INDICATION: S H/O GASTRIC CA S/P SURG, ABHISHEK PAIN N/V, ORAL IV CONTRAST COMPARISON: 07/28/2016 TECHNIQUE: The abdomen and pelvis were scanned using a multidetector helical scanner. Coronal and sagittal reformations were obtained. Routine protocol performed. IV Contrast: 100 ml Isovue 300/370 FINDINGS: LOWER THORAX: No consolidations LIVER/BILIARY: Difficult to evaluate due to arterial phase of imaging. Suggestion of low-density 9 mm lesion right hepatic lobe, segment 6 on image 26. Stable extrahepatic biliary ductal dilation. GALLBLADDER: Contracted SPLEEN: Unremarkable PANCREAS: Stable prominence of the pancreatic duct. No masses. ADRENALS: No nodules KIDNEYS: Symmetric perfusion. Unchanged 1.3 cm left renal cyst. No hydronephrosis. GI TRACT: Stable postsurgical changes status post gastric resection. No evidence of obstruction or wall thickening. Diverticulosis. Normal appendix. VESSELS: Mild atherosclerotic changes PERITONEUM/RETROPERITONEUM: No free air or fluid LYMPH NODES: No lymphadenopathy REPRODUCTIVE ORGANS/BLADDER: Unremarkable SOFT TISSUES: Unremarkable BONES: Mild degenerative changes of the lumbar spine. IMPRESSION: 1. No acute abnormality in the abdomen or pelvis. 2. Stable postsurgical changes status post gastric resection. 3. Hypodensity in the right liver, unclear if this reflects a new lesion or is perfusional. Recommend nonemergent MRI with and without IV contrast liver mass protocol. Signed by: Dr Tiffany Ocampo MD on 07/18/2017 1:48 AM Dictated By: TIFFANY OCAMPO MD 7 Transcribed By: JUDY on 07/18/17147 COPY TO: AMBER MARIE MD
[2018-03-19 11:56] VITALS: BP 122/73
== END | disposition home or self-care (01) ==
LOC: OR 08:00
PROVIDERS: ATTEND Surgery
DX: C16.9 Malignant neoplasm of stomach, unspecified (principal); Z90.3 Acquired absence of stomach [part of]; I25.10 Atherosclerotic heart disease of native coronary artery without angina pectoris; R06.09 Other forms of dyspnea; I10 Essential (primary) hypertension; M06.9 Rheumatoid arthritis, unspecified; E03.9 Hypothyroidism, unspecified; Z01.810 Encounter for preprocedural cardiovascular examination; Z01.812 Encounter for preprocedural laboratory examination; Z01.818 Encounter for other preprocedural examination
CPT/HCPCS: 36415; 43235; 71046; 80053; 82378; 85025; 93005; J2001; J2704; 43239

== ENCOUNTER 2018-12-17 06:18 | Inpatient (IN) | payer MEDICARE ==
[~2018-12-17] VITALS: Ht 157.5 cm; Wt 40.4 kg
[~2018-12-17 06:18] MED LIST changes: -LIDOCAINE HCL 2% LOCAL INJ 5 ML SDV VIAL INJ ONE; -PROPOFOL IV EMULSION 10 MG/ML 20 ML VIAL ONE
[2018-12-17] MEDS ORDERED: ONDANSETRON HCL INJ 2MG/ML 2ML 2 MG/ML VIAL IV STA (06:31)
[2018-12-17] MEDS ORDERED: PANTOPRAZOLE 40 MG 10ML VIAL IV STA (06:31)
[2018-12-17] MEDS ORDERED: SODIUM CHLORIDE 0.9% 1000ML 1,000 ML IV STA (06:31)
--- NOTE | 2018-12-17 06:47 | NUR ---
REPORT GIVEN TO JOSE F BAILEY
[2018-12-17 06:48] LABS: BILIRUBIN,URINE NEGATIVE (NEGATIVE); CLARITY,URINE CLEAR (CLEAR); COLOR,URINE YELLOW (YELLOW); KETONES,URINE NEGATIVE (NEGATIVE); LEUKOCYTE ESTERASE ,URINE TRACE (NEGATIVE); NITRITE,URINE NEGATIVE (NEGATIVE); PROTEIN,URINE DIPSTICK NEGATIVE (NEGATIVE); URINE UROBILINOGEN 0.2 mg/dL (0.2 - 1)
[2018-12-17 06:52] LABS: BASOPHILS % 0.4 % (0.0-1.0); EOSINOPHILS % 0.5 % (0.0-6.0); HEMATOCRIT 42.1 % (34.2-44.1); HEMOGLOBIN 13.6 g/dL (12.0-16.0); LYMPHOCYTES # (AUTO) 2.1 (1.0-3.2); LYMPHOCYTES % 24.7 % (18.0-39.1); MEAN CORPUSCULAR HEMOGLOBIN 29.7 pg (28-32); MEAN CORPUSCULAR HGB CONC 32.3 g/dL (31-35); MEAN CORPUSCULAR VOLUME 91.9 fL (81-99); MONOCYTES # (AUTO) 0.6 (0.2-0.8); MONOCYTES % 6.7 % (4.4-11.3); NEUTROPHILS # (AUTO) 5.6 (2.1-6.9); NEUTROPHILS % 67.3 % (38.7-80.0); PLATELET COUNT 213 x10e3/uL (140-360); RED BLOOD COUNT 4.58 x10e6/uL (3.6-5.1); RED CELL DISTRIBUTION WIDTH 13.9 % (11.7-14.4)
[2018-12-17 07:06] LABS: BACTERIA,URINE RARE /HPF; EPITHELIAL CELLS,URINE FEW /LPF
[2018-12-17 07:14] LABS: ALBUMIN 3.6 g/dL (3.5-5.0); CALCIUM 9.8 mg/dL (8.4-10.2); CREATININE, SERUM 0.94 mg/dL (0.57-1.11); MAGNESIUM 1.6 MG/DL (1.3-2.1)
[2018-12-17 07:15] LABS: CREATINE KINASE MB 1.7 ng/mL (0-5.0)
[2018-12-17] MEDS ORDERED: DIATRIZOATE MEGL/DIATRIZOA SOD 30 ML BTL PO ONE (07:21)
[2018-12-17 07:38] LABS: INR 0.94; PROTHROMBIN TIME 13.1 seconds (11.9-14.5)
[2018-12-17 07:39] LABS: PARTIAL THROMBOPLASTIN TIME 31.2 seconds (23.8-35.5)
--- NOTE | 2018-12-17 07:43 | Diagnostic Imaging Report ---
EXAMINATION: CHEST SINGLE (PORTABLE) INDICATION: Pain. COMPARISON: 03/16/2018. FINDINGS: PA and lateral views TUBES and LINES: None. LUNGS: Lungs are hyperinflated. There is no evidence of pneumonia or pulmonary edema. PLEURA: No pleural effusion or pneumothorax. HEART AND MEDIASTINUM: The cardiomediastinal silhouette is unremarkable. There are atherosclerotic calcifications within the aorta. BONES AND SOFT TISSUES: No acute osseous lesion. Soft tissues are unremarkable. UPPER ABDOMEN: No free air under the diaphragm. IMPRESSION: Bilateral hyperinflation suggestive of COPD. Signed by: Dr. Veronique Lima M.D. on 12/17/2018 7:39 AM
[2018-12-17] MEDS ORDERED: ONDANSETRON HCL INJ 2MG/ML 2ML 2 MG/ML VIAL IV ONE (07:45)
[2018-12-17] MEDS ORDERED: KETOROLAC TROMETHAMINE 30 MG/ML VIAL IV ONE (07:45)
--- NOTE | 2018-12-17 08:58 | Diagnostic Imaging Report ---
EXAM: CT Abdomen and Pelvis WITH intravenous contrast INDICATION: Abdominal pain, nausea, vomiting COMPARISON: CT abdomen and pelvis of 08/10/2017 TECHNIQUE: Abdomen and pelvis were scanned utilizing a multidetector helical scanner from the lung base to the pubic symphysis after administration of IV contrast. Coronal and sagittal reformations were obtained. Routine protocol was performed. Scan was performed during portal venous phase. IV CONTRAST: 100mL of Isovue 370 ORAL CONTRAST: Gastrografin RADIATION DOSE: Total DLP: 164.2 mGy*cm Dose modulation, iterative reconstruction, and/or weight based adjustment of the mA/kV was utilized to reduce the radiation dose to as low as reasonably achievable. FINDINGS: LOWER THORAX: Normal. HEPATOBILIARY: No focal liver lesion. Mild intrahepatic biliary ductal dilation. The common bile duct is dilated to 10 mm and tapers distally with no definite visible obstructive lesion. There is a reported history of cholecystectomy. 3.6 x 1.9 cm rim-enhancing fluid structure in the region of the gallbladder fossa. These findings appear similar compared to a prior CT of 08/10/2017. SPLEEN: Absent. PANCREAS: No focal mass. The entirety of the pancreatic duct is dilated up to 5 mm. ADRENALS: No adrenal nodules. KIDNEYS/URETERS: No hydronephrosis or renal calculi. 1.5 cm simple appearing left renal cyst. PELVIC ORGANS/BLADDER: Unremarkable. PERITONEUM / RETROPERITONEUM: No free air or fluid. LYMPH NODES: No lymphadenopathy. VESSELS: Scattered atherosclerotic calcifications of the nonaneurysmal abdominal aorta and major branches. GI TRACT: Status post gastrectomy. The distal esophagus is patulous with layering fluid just proximal to the anastomosis. There is extensive wall thickening of a loop of small bowel in the left lower quadrant. The affected loop measures up to 4.0 cm with the edematous wall measuring 1.5 cm. Proximal to this, there are extensively dilated loops of small bowel with air-fluid levels measuring up to 6.4 cm maximal diameter. There is no passage of oral contrast beyond the segment of thickened bowel. BONES AND SOFT TISSUES: No acute osseous injury. Degenerative changes of the visualized spine. No suspicious lytic or blastic lesions. IMPRESSION: Small bowel obstruction with dilated loops measuring up to 6.4 cm maximal diameter. The transition point is a loop of small bowel in the left lower quadrant with extensive wall thickening. Loop measures up to 4.0 cm with edematous wall measuring up to 1.5 cm on each side. Mild intrahepatic ductal dilation, extrahepatic ductal dilation, and pancreatic ductal dilation with distal tapering of the common bile duct but no definite visible obstructive lesion. Reported history of cholecystectomy. 3.6 x 1.9 cm rim-enhancing fluid structure in the region of the gallbladder fossa may represent a biloma. These findings are all essentially unchanged compared to a prior CT of 08/10/2017. Signed by: Shaw Resendiz MD on 12/17/2018 8:55 AM
[2018-12-17] MEDS ORDERED: MORPHINE SULFATE INJ 4 MG/ML INJ 1ML IV PRN (09:15)
[2018-12-17] MEDS ORDERED: ONDANSETRON HCL INJ 2MG/ML 2ML 2 MG/ML VIAL IV PRN (09:15)
[2018-12-17] MEDS ORDERED: HYDRALAZINE HCL 20 MG/ML VIAL IV STA (09:22)
[2018-12-17] MEDS ORDERED: BENZOCAINE 20% SPR 60 ML CAN MT ONE (11:15)
--- NOTE | 2018-12-17 11:18 | NUR ---
ng tube inserted per md orders
[2018-12-17] MEDS ORDERED: SODIUM CHLORIDE 0.9% 50ML 50 ML ONE (11:51)
[2018-12-17] MEDS ORDERED: IOPAMIDOL 370 MG/ML 200 ML INFUS..BTL INJ ONE (11:52)
--- NOTE | 2018-12-17 13:44 | Diagnostic Imaging Report ---
Exam: KUB - 2 views Indication: NG tube placement Comparison: Abdomen and pelvis CT of earlier the same day Findings: Interval placement of NG tube with tip at the expected region of the enteroesophageal anastomosis and side-port in the mid to distal esophagus. Redemonstration of dilated loop of small bowel entering approximately 6.7 cm maximum diameter. No free air. No definite pneumatosis. The visualized portions of the lungs are clear. Impression: NG tube terminates at the region of the enteroesophageal anastomosis with tip in the mid to distal esophagus. Recommend further advancement of the tube by approximately 5 to 10 cm. Small bowel obstruction measuring up to 6.7 cm maximum diameter. No free air. Signed by: Shaw Resendiz MD on 12/17/2018 1:40 PM
--- NOTE | 2018-12-17 14:03 | NUR ---
ng tube advanced another 5 cm approx; kub ordered to verify placement
--- NOTE | 2018-12-17 14:15 | NUR ---
Received patient via stretcher from ER. Accompanied by healthcare technician. AAOX4 to time, person, place, situation. Respirations even and unlabored. Denies pain. Oriented to room. Instructed to use call light for assistance. Voiced understanding.
[2018-12-17] MEDS ORDERED: SODIUM CHLORIDE 0.9% 250ML IRRIG IR SCH (14:30)
--- NOTE | 2018-12-17 14:30 | NUR ---
NG tube on low continuous sunction draining dark green drainage.
[2018-12-17 14:36] VITALS: BP 145/66
[2018-12-17 14:41] VITALS: BP 145/66
[2018-12-17] MEDS ORDERED: RESTASIS1 EACH OP (14:47)
[2018-12-17] MEDS ORDERED: DICYCLOMINE HCL20 MG PO (14:47)
[2018-12-17] MEDS ORDERED: NEXIUM40 MG PO (14:47)
[2018-12-17] MEDS ORDERED: ALENDRONATE SOD70 MG PO (14:47)
[2018-12-17 15:01] VITALS: BP 145/66
--- NOTE | 2018-12-17 15:22 | Diagnostic Imaging Report ---
Exam: KUB - 2 views Indication: NG tube placement Comparison: KUB of earlier the same day Findings: NG tube is no longer visualized in the abdomen. Interval decrease in caliber of dilated loops of small bowel in the left abdomen, now measuring up to 3.5cm. Impression: NG tube not visualized on this abdominal radiograph. If coiling in the chest is a concern, please obtain chest radiograph. Decrease in caliber of known small bowel obstruction, now 3.5 cm in diameter. Signed by: Shaw Resendiz MD on 12/17/2018 3:18 PM
[2018-12-17 15:40] VITALS: BP 145/66
--- NOTE | 2018-12-17 15:45 | NUR ---
Notified Kasey Johnson of KUB results. Order to discontinue NG received. Discontinued NG tube as ordered. Tolerated well. 75ml of dark green drainage noted.
--- NOTE | 2018-12-17 17:21 | NUR ---
internal controls consultant for . States "I will see her tomorrow"
[2018-12-17] MEDS ORDERED: SODIUM CHLORIDE 0.9% 250ML 250 ML ONE (17:27)
[2018-12-17] MEDS ORDERED: ACETAMINOPHEN 1000 MG/100 ML IV ONE ×2 (17:30→17:45)
--- NOTE | 2018-12-17 19:04 | NUR ---
Report given to oncoming nurse of patient's status. Resting in bed with eyes closed. Arousable to verbal stimuli. Respirations even and unlabored. Side railsx2, call light within reach.
[2018-12-17 21:26] VITALS: BP 122/64
[2018-12-17 22:04] VITALS: BP 122/64
--- NOTE | 2018-12-17 22:13 | Diagnostic Imaging Report ---
EXAM: ABDOMEN-1VIEW (KUB), DATE: 12/17/2018 9:00 PM INDICATION: Small bowel obstruction. COMPARISON: 12/17/[address] abdomen pelvis dated 12/17/2018. FINDINGS: LINES/TUBES: None BOWEL PATTERN: There is oral contrast within the cecum, which excludes complete obstruction. Interval resolution of previously distended small bowel loops. There is gas within the colon and rectum. SOFT TISSUES: Excreted contrast within the bladder. LUNG BASES: Clear. BONES: No acute findings. IMPRESSION: Interval resolution of small bowel dilatation with oral contrast reaching the cecum which excludes obstruction. Finding on the prior CT examination of December 17, 2018 is suggestive of intussusception in the left lower quadrant (it most likely resolved given improvement of small bowel dilatation). Signed by: Dr. Veronique Lima M.D. on 12/17/2018 10:10 PM
[2018-12-18] VITALS (8 sets, daily range): BP systolic 114–145; BP diastolic 56–74
[2018-12-18 05:20] LABS: BASOPHILS % 0.4 % (0.0-1.0); EOSINOPHILS # (AUTO) 0.1 (0.0-0.4); EOSINOPHILS % 1.1 % (0.0-6.0); HEMATOCRIT 36.7 % (34.2-44.1); HEMOGLOBIN 12.1 g/dL (12.0-16.0); LYMPHOCYTES # (AUTO) 1.7 (1.0-3.2); MEAN CORPUSCULAR HEMOGLOBIN 30.3 pg (28-32); MONOCYTES # (AUTO) 0.6 (0.2-0.8); NEUTROPHILS # (AUTO) 4.9 (2.1-6.9); NEUTROPHILS % 67.2 % (38.7-80.0); PLATELET COUNT 183 x10e3/uL (140-360); RED BLOOD COUNT 3.99 x10e6/uL (3.6-5.1); RED CELL DISTRIBUTION WIDTH 14.1 % (11.7-14.4)
[2018-12-18 05:52] LABS: ALBUMIN 2.9 g/dL (3.5-5.0); ANION GAP 12.8 mmol/L (8-16); CALCIUM 8.7 mg/dL (8.4-10.2); CREATININE, SERUM 0.95 mg/dL (0.57-1.11); POTASSIUM 3.8 mmol/L (3.5-5.1)
--- NOTE | 2018-12-18 07:30 | NUR ---
The pt. is received from the off-going nurse and the pt. is in stable condition. She denies pain or discomfort at this time.
[2018-12-18] MEDS ORDERED: HYDRALAZINE HCL 20 MG/ML VIAL IV PRN (08:00)
[2018-12-18] MEDS ORDERED: ACETAMIN/BUTALBITAL/CAFFEINE TAB PO PRN (08:00)
[2018-12-18] MEDS: LEVOTHYROXINE SODIUM 50 MCG TAB PO SCH (08:52)
[2018-12-18] MEDS: CEFTRIAXONE SOD 1 GM/NS 50 ML 50 ML IV SCH (08:52)
--- NOTE | 2018-12-18 10:29 | NUR ---
SUPERVISOR G[employer] REPAIR USED - [place], ID# [id number]
[2018-12-18] MEDS: ACETAMINOPHEN 325 MG TAB PO PRN (11:23)
--- NOTE | 2018-12-18 13:16 | Consultation ---
DATE OF CONSULTATION: 12/18/2018 HISTORY OF PRESENT ILLNESS: The patient is a 78-year-old female admitted to the hospital with complaints of abdominal pain. Evaluation in the emergency room revealed findings suggestive of possible intussusception and small bowel obstruction, but this is improved now. The patient says her pain has gone completely. She has no nausea or vomiting. She is passing flatus. Apparently, she may have similar symptoms in the past, but she is a very poor historian, but from old notes, there is a history of intussusception in the past. PAST MEDICAL HISTORY: Significant for carcinoma of stomach with previous gastrectomy, history of hypothyroidism, previous thyroidectomy, history of chronic kidney disease, and hypertension. PAST SURGICAL HISTORY: Previous surgery includes hysterectomy, thyroidectomy, right shoulder surgery, gastrectomy, and splenectomy. ALLERGIES: SHE HAS NO KNOWN ALLERGIES. MEDICATIONS: At home are alendronate, bisoprolol, hydrochlorothiazide, vitamin D, cyclosporine eye drops, Bentyl, Nexium, and levothyroxine. FAMILY HISTORY: Noncontributory. SOCIAL HISTORY: The patient does not smoke cigarettes or drink alcohol. REVIEW OF SYSTEMS: As stated above, otherwise was negative. PHYSICAL EXAMINATION: GENERAL: The patient is awake and alert, in no distress. VITAL SIGNS: Low-grade fever, temperature of 100.5, otherwise normal. HEENT: There is no scleral icterus. NECK: Has no masses. LUNGS: Equal breath sounds are clear bilaterally. CARDIAC: Regular rate and rhythm. ABDOMEN: Soft. There is no tenderness. No distention. No mass. No organomegaly. EXTREMITIES: Have no edema. NEUROLOGIC: Grossly intact. LABORATORY DATA: The white blood cell count is normal with normal differential, hemoglobin and hematocrit are normal. Chemistries also essentially normal. ASSESSMENT: A 78-year-old female with abdominal pain with findings initially of small bowel obstruction that is now resolved. Most recent x-ray does not reveal any obstruction with passage of contrast into the colon. The patient may start on liquid diet. There are no findings that would warrant immediate surgical intervention at this time. Thank you for asking me to see Ms. Verde. MD PAT Parks/RUSSELL /[phone]
--- NOTE | 2018-12-18 15:14 | NUR ---
Nutrition Intervention Note RD Recommendation(s) for Physician: Continue diet as ordered Plan of Care: RD following, monitoring for tolerance and adequacy Nutrition reason for involvement: Nutrition Risk Trigger - MST RD Assessment Initial encounter with patient. Diet Hx: Pt has no known food allergies. Pt eating lunch at time of visit. Nutrition - focused physical findings: Pt has missing teeth/partial dentures, involuntary wt loss during past year of about 10 pounds, loss of lean body mass, loss of subcutaneous fat, hollow orbitals, prominent clavicle, acromion process, Pt denies any nausea, vomiting or diarrhea. Pt denies any difficulty chewing or swallowing. Principal Problems/Diagnoses:SBO PMH: Gastric cancer S/P gastrectomy, cholecystectomy, HTN, GERD, osteoporosis, thyroidectomy/hypothyroid GI: Soft Skin: Intact Labs: (09/02/2018) Biochemical data reviewed Meds: (09/02/18) MAR reviewed Ht:62 in. Wt:84lbs BMI:15.4kg/M2 IBW:110lbs Malnutrition Evaluation (12/18/2018) The patient meets criteria for unspecified SEVERE protein-calorie malnutrition. Energy intake: <50% of estimated energy requirements for 5 days Weight loss: >7.5% in 3 months (Chronic) Fat loss: Severe, Muscle loss: Severe, Supporting Evidence: Fluid accumulation: None Functional Status: unable to evaluate Nutrition Prescription (Diet Order): GI soft Estimated Nutritional Needs: 954-1145calories/day ( 25-30kcal/kg/BW) 38-60g protein/day ( 1-1.5g pro/kg/BW) Diet Adequacy: Meeting calorie needs, Meeting protein needs, Meeting fluid needs Diet Education Needs Assessment: Diet education not indicated Nutrition Care Level: High Nutrition Diagnosis: Malnutrition related to chronic illness as evidenced by a BMI of 15.4 Goal: Patient will meet 75-100% of estimated needs by follow up Progress: Progressing Interventions: modified diet Monitoring/Evaluation: Total energy intake, Total protein intake, Modified diet, Liquid supplement, Weight change, A Signed: Jewel Crouch RD, LD, [facility]
[2018-12-18] MEDS: FAMOTIDINE 20 MG TAB PO SCH (16:57)
[2018-12-19 04:15] VITALS: BP 129/70
[2018-12-19 05:51] LABS: BASOPHILS % 0.8 % (0.0-1.0); EOSINOPHILS # (AUTO) 0.1 (0.0-0.4); EOSINOPHILS % 2.8 % (0.0-6.0); HEMATOCRIT 37.1 % (34.2-44.1); HEMOGLOBIN 12.2 g/dL (12.0-16.0); LYMPHOCYTES # (AUTO) 1.9 (1.0-3.2); LYMPHOCYTES % 37.7 % (18.0-39.1); MEAN CORPUSCULAR HEMOGLOBIN 29.9 pg (28-32); MEAN CORPUSCULAR HGB CONC 32.9 g/dL (31-35); MEAN CORPUSCULAR VOLUME 90.9 fL (81-99); MONOCYTES # (AUTO) 0.6 (0.2-0.8); MONOCYTES % 11.5 % (4.4-11.3); NEUTROPHILS # (AUTO) 2.3 (2.1-6.9); PLATELET COUNT 184 x10e3/uL (140-360); RED BLOOD COUNT 4.08 x10e6/uL (3.6-5.1); RED CELL DISTRIBUTION WIDTH 13.8 % (11.7-14.4)
[2018-12-19 06:35] LABS: ANION GAP 12.3 mmol/L (8-16); BLOOD UREA NITROGEN 14 mg/dL (7-26); BUN/CREATININE RATIO 16 (6-25); CALCIUM 9.3 mg/dL (8.4-10.2); CARBON DIOXIDE 29 mmol/L (22-29); CHLORIDE 102 mmol/L (98-107); CREATININE, SERUM 0.86 mg/dL (0.57-1.11); EST GLOMERULAR FILTRATION RATE > 60 ML/MIN (60-); GLUCOSE 102 mg/dL (74-118); POTASSIUM 4.3 mmol/L (3.5-5.1); SODIUM 139 mmol/L (136-145)
[2018-12-19] MEDS ORDERED: LIOTHYRONINE SODIUM 5 MCG TAB PO SCH (07:30)
[2018-12-19] MEDS: CEFTRIAXONE SOD 1 GM/NS 50 ML 50 ML IV SCH (07:42)
[2018-12-19] MEDS: FAMOTIDINE 20 MG TAB PO SCH ×2 (07:42→16:45)
[2018-12-19] MEDS: LEVOTHYROXINE SODIUM 50 MCG TAB PO SCH (07:43)
[2018-12-19 07:50] VITALS: BP 120/65
[2018-12-19 07:53] VITALS: BP 120/65
[2018-12-19] MEDS: ACETAMINOPHEN 325 MG TAB PO PRN (08:00)
--- NOTE | 2018-12-19 08:38 | Diagnostic Imaging Report ---
EXAM: ABDOMEN 2 VIEW, INDICATION: Small bowel obstruction. COMPARISON: KUB 12/17/2018 at 9:00 PM, CT abdomen/pelvis 12/17/2018. FINDINGS: There has been interval progression of oral contrast into the transverse colon, previously in the cecum. No evidence of bowel obstruction. No evidence of free intraperitoneal air. No acute osseous abnormality. IMPRESSION: No evidence of residual small bowel bowel obstruction. Signed by: Dr. Santana Washington MD on 12/19/2018 8:35 AM
[2018-12-19 11:50] VITALS: BP 118/67
[2018-12-19] MEDS ORDERED: ZOFRAN8 MG PO (15:16)
[2018-12-19 16:34] VITALS: BP 141/99
[2018-12-19 16:55] VITALS: BP 136/84
--- NOTE | 2018-12-19 17:18 | NUR ---
Left FA IV discontinued. No signs of infiltration noted. 2x2 gauze and tape placed. Taken via wheelchair to personal car by PCT. Accompanied by daughter. AAOX4 to time, person, place, situation. Respirations even and unlabored. Denies pain. Discharge instructions, rx, and all personal belongings taken with patient.
--- NOTE | 2018-12-19 22:06 | Discharge Summary ---
HISTORY OF PRESENT ILLNESS: Ms. 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 She also had associated nausea and vomiting and her bowel movement prior to admission was soft and brown on 12/17. PAST MEDICAL HISTORY: Includes gastric cancer in 2014 with chemotherapy, status post gastrectomy in 2015, hypothyroidism, hypertension, gastroesophageal reflux disease, and osteoporosis. PAST SURGICAL HISTORY: Includes right shoulder surgery, splenectomy, gastrectomy with Solomon-en-Y, and thyroidectomy. FAMILY HISTORY: Noncontributory. SOCIAL HISTORY: Noncontributory. ALLERGIES: NO KNOWN ALLERGIES. ADMITTING DIAGNOSES: 1. Small bowel obstruction. 2. Urinary tract infection with sepsis, present on arrival. 3. Hypertension. 4. Hypothyroidism. 5. Protein-calorie malnutrition. DISCHARGE DIAGNOSES: 1. Small bowel obstruction. 2. Urinary tract infection with sepsis, present on arrival. 3. Hypertension. 4. Hypothyroidism. 5. Protein-calorie malnutrition. 6. Cachexia with BMI 15.4. LABORATORY DATA: On admission, WBC is 8.3, hemoglobin 13.6, hematocrit 42.1, platelets 213, potassium 4.0, carbon dioxide 33, BUN 16, creatinine 0.94, GFR 58, and magnesium 1.6. LFTs were within normal limits. Total protein 7.1, albumin 3.6, lipase 33; yesterday, total protein 5.8, albumin 2.9; today, BUN 14, creatinine 0.86, GFR greater than 60. Final urine culture which was collected on December 17 shows no growth after 36-48 hours. Chest x-ray on December 17 showed bilateral hyperinflation suggestive of COPD. Abdomen and pelvis CT showed small bowel obstruction with dilated loops measuring up to 6.4 cm in maximal diameter, history of cholecystectomy. Three abdominal x-rays done on December 17 first showed NG tube at the region of the entero-esophageal anastomosis with tip in the mid to distal esophagus. A small bowel obstruction measuring up to 6.7 cm maximum diameter without free air. Second abdominal x-ray showed NG tube not visualized, decrease in caliber of known small bowel obstruction, now 3.5 cm diameter. The 3rd showed interval resolution of small bowel dilation with oral contrast reaching the cecum which excludes obstruction. Finding on the prior CT examination of December 17 is suggestive of intussusception in the left lower quadrant which most likely resolved given improvement of small-bowel dilation. Abdominal x-ray done earlier this morning showed no evidence of residual small bowel obstruction. Consults included Dr. Goodman with surgery was covering for Dr. Meza. He saw the patient on December 18. At that time, the patient was passing flatus. The patient was subjectively improved at that time. No findings that would warrant immediate surgical intervention. Today, the patient states that her stomach feels "hard like she needs to pass gas, but it is not coming out." Her last bowel movement was Thursday. She denies any nausea, vomiting, or diarrhea and currently no abdominal pain. She is on a GI soft diet, tolerating it well this morning and for lunch as well. A call was placed to Dr. Meza who stated that she could be discharged from his standpoint. Follow up with surgery in 10 days. Patient's PCP is Jeremiah Pak. She lives at [facility] in [place]. We will discharge the patient back to assisted living on GI soft diet. Activity level as tolerated. Follow up with surgery within 10 days as suggested. Follow up with PCP in 1-2 weeks. Dictated by Ellis Palacios NP MD MANISH Braun/RUSSELL /[id number]
== END 2018-12-19 17:17 | disposition home or self-care (01) | DRG 871 ==
LOC: ER 06:18 → ERHOLD 09:07 → MED/SURG2 14:21
PROVIDERS: ADMIT Internal Medicine; ATTEND Internal Medicine
DX: A41.9 Sepsis, unspecified organism (principal); E43 Unspecified severe protein-calorie malnutrition; K56.609 Unspecified intestinal obstruction, unspecified as to partial versus complete obstruction; N39.0 Urinary tract infection, site not specified; Z68.1 Body mass index [BMI] 19.9 or less, adult; R64 Cachexia; R10.32 Left lower quadrant pain; Z85.028 Personal history of other malignant neoplasm of stomach; I10 Essential (primary) hypertension; Z90.49 Acquired absence of other specified parts of digestive tract; Z82.49 Family history of ischemic heart disease and other diseases of the circulatory system; Z90.3 Acquired absence of stomach [part of]; E03.9 Hypothyroidism, unspecified; K21.9 Gastro-esophageal reflux disease without esophagitis; M81.0 Age-related osteoporosis without current pathological fracture
CPT/HCPCS: 36415; 71045; 74018; 74019; 74177; 80048; 80053; 81001; 82550; 82553; 83690; 83735; 84443; 84484; 85025; 85610; 85730; 86850; 86900; 87086; 93005; 96374; 99285; J0360; J0696; J1885; J2270; J2405; J7030; J7050; Q9967

== ENCOUNTER 2019-05-30 05:58 | Inpatient (IN) | payer MEDICARE ==
[~2019-05-30] VITALS: Ht 157.5 cm; Wt 39.0 kg
[~2019-05-30 05:58] MED LIST changes: +DICYCLOMINE HCL20 MG PO; +RESTASIS1 EACH OP; +ZOFRAN8 MG PO
[2019-05-30 06:21] LABS: BASOPHILS % 0.4 % (0.0-1.0); EOSINOPHILS % 0.3 % (0.0-6.0); HEMATOCRIT 44.5 % (34.2-44.1); LYMPHOCYTES % 26.5 % (18.0-39.1); MEAN CORPUSCULAR HEMOGLOBIN 30.5 pg (28-32); MEAN CORPUSCULAR HGB CONC 33.7 g/dL (31-35); MEAN CORPUSCULAR VOLUME 90.6 fL (81-99); MONOCYTES # (AUTO) 0.5 (0.2-0.8); MONOCYTES % 5.9 % (4.4-11.3); NEUTROPHILS # (AUTO) 5.1 (2.1-6.9); NEUTROPHILS % 66.6 % (38.7-80.0); PLATELET COUNT 213 x10e3/uL (140-360); RED BLOOD COUNT 4.91 x10e6/uL (3.6-5.1); RED CELL DISTRIBUTION WIDTH 13.9 % (11.7-14.4)
[2019-05-30] MEDS ORDERED: DIATRIZOATE MEGL/DIATRIZOA SOD 30 ML BTL PO ONE (06:27)
[2019-05-30 06:30] LABS: BILIRUBIN,URINE NEGATIVE (NEGATIVE); CLARITY,URINE CLEAR (CLEAR); COLOR,URINE YELLOW (YELLOW); KETONES,URINE TRACE (NEGATIVE); LEUKOCYTE ESTERASE ,URINE NEGATIVE (NEGATIVE); NITRITE,URINE NEGATIVE (NEGATIVE); PROTEIN,URINE DIPSTICK 1+ (NEGATIVE); URINE UROBILINOGEN 0.2 mg/dL (0.2 - 1)
--- NOTE | 2019-05-30 06:30 | NUR ---
EKG OBTAINED AT THIS TIME. EKG GIVEN TO MOISES PINEDO FOR EVAL.
[2019-05-30 06:42] LABS: ALANINE AMINOTRANSFERASE 35 IU/L (0-55); ALBUMIN 4.1 g/dL (3.5-5.0); ALBUMIN/GLOBULIN RATIO 1.2 (0.8-2.0); ALKALINE PHOSPHATASE 59 IU/L (40-150); ANION GAP 13.3 mmol/L (8-16); BLOOD UREA NITROGEN 17 mg/dL (7-26); BUN/CREATININE RATIO 18 (6-25); CALCIUM 9.4 mg/dL (8.4-10.2); CARBON DIOXIDE 30 mmol/L (22-29); CHLORIDE 97 mmol/L (98-107); CREATINE KINASE 106 IU/L (29-168); CREATININE, SERUM 0.95 mg/dL (0.57-1.11); EST GLOMERULAR FILTRATION RATE 57 ML/MIN (60-); GLUCOSE 138 mg/dL (74-118); POTASSIUM 4.3 mmol/L (3.5-5.1); SODIUM 136 mmol/L (136-145)
[2019-05-30 06:45] LABS: BACTERIA,URINE RARE /HPF; EPITHELIAL CELLS,URINE FEW /LPF
[2019-05-30] MEDS ORDERED: MORPHINE SULFATE INJ 4 MG/ML INJ 1ML IV ONE (06:45)
[2019-05-30] MEDS ORDERED: ONDANSETRON HCL INJ 2MG/ML 2ML 2 MG/ML VIAL IV STA ×2 (06:45→08:25)
[2019-05-30] MEDS ORDERED: MORPHINE SULFATE INJ 4 MG/ML INJ 1ML ONE (06:57)
[2019-05-30] MEDS ORDERED: SODIUM CHLORIDE 0.9% 500ML 500 ML IV ONE (07:00)
[2019-05-30 07:01] LABS: AMYLASE 132 U/L (25-125); LIPASE 35 U/L (8-78)
--- NOTE | 2019-05-30 07:06 | NUR ---
BEDSIDE REPORT GIVEN TO JOSE F LEGGETT DAY SHIFT NURSE.
[2019-05-30] MEDS ORDERED: SODIUM CHLORIDE 0.9% 50ML 50 ML ONE (07:14)
--- NOTE | 2019-05-30 07:14 | NUR ---
Pt to CT scan.
[2019-05-30] MEDS ORDERED: IOPAMIDOL 370 MG/ML 200 ML INFUS..BTL INJ ONE (07:17)
[2019-05-30] MEDS ORDERED: MORPHINE SULFATE INJ 4 MG/ML INJ 1ML IV STA (08:25)
--- NOTE | 2019-05-30 08:30 | Diagnostic Imaging Report ---
CT of the abdomen and pelvis History: Abdominal pain Comparison: CT of the abdomen and pelvis dated 12/17/2018. Technique: Multidetector CT scanning of the abdomen and pelvis was performed from the level of the lung bases to the inferior pubic ramus, with intravenous administration of non-ionic contrast and with oral contrast. DOSE REDUCTION: The examination was performed according to departmental dose-optimization program which includes automated exposure control, adjustment of the mA and/or kV according to patient size and/or use of iterative reconstruction technique. Discussion: The lung bases are clear. No focal hepatic lesions are identified. There is mild intrahepatic ductal dilatation and prominence of the common bile duct measuring up to 1 cm in diameter which is unchanged from prior examination. The spleen is absent. No focal pancreatic mass is identified. The common bile duct is stably prominent measuring up to 5 mm in maximum diameter. The bilateral adrenal glands are unremarkable. The kidneys are normal in size and enhance symmetrically. There is no hydroureteronephrosis bilaterally. No kidney stones are identified. There is a 1.5 cm left renal cyst. Patient status post gastrectomy. There is a small bowel obstruction with dilated loops of small bowel measuring up to 7.2 cm in diameter. The cause of obstruction is most likely intussusception of small bowel in the left lower quadrant which is best appreciated on axial images 38 through 48. This has a similar appearance when compared to the examination dated 12/17/2018. The distal small bowel and colon are decompressed. There is no free intraperitoneal air. The abdominal aorta is normal in caliber. The urinary bladder is within normal limits. No acute osseous abnormalities are identified. IMPRESSION: 1. Small bowel obstruction with dilated loops of small bowel measuring up to 7.2 cm in diameter. The cause of obstruction is likely secondary to intussusception of small bowel loops in the left lower quadrant. These findings are similar to examination dated 12/17/2018. 2. Stable mild intrahepatic and extrahepatic biliary ductal dilatation. Signed by: Gustavo Green MD on 05/30/2019 8:27 AM
--- NOTE | 2019-05-30 08:33 | Diagnostic Imaging Report ---
Chest, PA and lateral. History: Abdominal pain. Comparison: 12/17/2018. Discussion: The heart is within normal limits of size. The mediastinal and hilar contours are unremarkable. There is no focal consolidation, sizable pleural effusion, or pneumothorax. No acute osseous abnormalities. IMPRESSION: No radiographic evidence of acute cardiopulmonary abnormality. Signed by: Gustavo Green MD on 05/30/2019 8:30 AM
--- NOTE | 2019-05-30 09:55 | NUR ---
H&P cc: abdominal pain and N/V HPI: 79yoF, PCP ---, p/w with abdominal pain and N/V. Found to have intussusception. May be chronic; d/w . 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 SBO- NPO; ambulate; antitemetics ORAL- IVF Hypothyroidism- consider IV tx in few days Prop: PPI; scd Dispo: sx consulted; IVF; monitor Jacobo Monahan MD, PhD.
[2019-05-30] MEDS ORDERED: PROMETHAZINE 12.5MG/ NACL 0.9% 12.5 MG/50 ML BAG IV PRN (10:00)
--- NOTE | 2019-05-30 10:32 | NUR ---
Report called to Marcie KOHLER.
[2019-05-30] MEDS: PANTOPRAZOLE 40 MG 10ML VIAL IV SCH (10:52)
[2019-05-30] MEDS: SODIUM CHLORIDE 0.9% 1000ML 1,000 ML IV SCH (10:52)
--- NOTE | 2019-05-30 11:04 | Consultation ---
DATE OF CONSULTATION: 05/30/2019 CHIEF COMPLAINT: Abdominal pain. 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 In 2014, the patient has experienced recurrent abdominal pain and vomiting, requiring several admissions in the last few years. The patient again experienced the same in the last 24 hours with nausea and abdominal pain and obstipations. She had one bowel movement yesterday. PAST MEDICAL HISTORY: As mentioned is positive for: 1. Gastric carcinoma with previous gastrectomy. 2. Chronic renal insufficiency. 3. Hypothyroidism. 4. Hypertension. PAST SURGICAL HISTORY: Positive for: 1. Total gastrectomy. 2. Hysterectomy. 3. Thyroidectomy. 4. Right shoulder surgery. 5. Splenectomy. ALLERGIES: SHE HAS NO DRUG ALLERGIES. SOCIAL HABITS: She denies smoking or alcohol use. REVIEW OF SYSTEMS: No chest pain or shortness of breath. PHYSICAL EXAMINATION: VITAL SIGNS: Stable. She is afebrile. She is awake, alert, in moderate discomfort. HEENT: Sclera is anicteric. NECK: Supple. LUNGS: Clear. HEART: Regular rate and rhythm. ABDOMEN: Guarding in the left upper quadrant with no rebound or tenderness. EXTREMITIES: Without cyanosis or edema. LABORATORY DATA: White cell count 7, hemoglobin of 15, creatinine 0.9. Liver function tests unremarkable. CT of the abdomen again revealed bowel obstruction with dilated loops of bowel, measures 7 cm, which is chronic compared to prior CT scan. There is evidence of intussusception of the small bowel loops in the left upper quadrant. 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 PLAN: Conservative nonoperative management initially. If conditions persist or evidence of ischemia/peritonitis, proceeding with exploratory laparotomy and bowel resection. Jerome Goodman MD DNStephen/RUSSELL /[id number]
[2019-05-30 11:10] VITALS: BP 149/79
--- NOTE | 2019-05-30 11:10 | NUR ---
Pt received from ER at this time. Pt is aaox4 and able to verbalize needs. Pt complaining of pain to left lower abdomen and a little bit of nausea. Pt is ambulatory. Pt is NPO at this time and on IV fluid and well tolerarted.
[2019-05-30] MEDS: MORPHINE SULFATE INJ 4 MG/ML INJ 1ML IV PRN ×3 (11:29→23:15)
[2019-05-30 11:45] VITALS: BP 149/79
[2019-05-30] MEDS ORDERED: ANORO ELLIPTA1 EACH (14:06)
[2019-05-30 16:22] VITALS: BP 141/65
--- NOTE | 2019-05-30 19:10 | NUR ---
RECEIVED THE PATIENT IN REPORT.BETO IN THE BED.
[2019-05-30 20:29] VITALS: BP 136/63
[2019-05-30 20:42] VITALS: BP 136/63
--- NOTE | 2019-05-30 22:55 | NUR ---
Assessment done.aaox3.no resp.distress.abd pain voiced 10/16.voided.no vomiting.bed alarm on.bed locked and in lowest position.phone and call light within reach.instructed to call for assistance as needed.
[2019-05-30] MEDS: ONDANSETRON HCL INJ 2MG/ML 2ML 2 MG/ML VIAL IV PRN (23:12)
[2019-05-30 23:54] VITALS: BP 123/71
[2019-05-31 04:00] VITALS: BP 103/58
[2019-05-31] MEDS: SODIUM CHLORIDE 0.9% 1000ML 1,000 ML IV SCH (05:34)
[2019-05-31 05:40] LABS: BASOPHILS % 0.2 % (0.0-1.0); EOSINOPHILS % 0.4 % (0.0-6.0); HEMOGLOBIN 13.1 g/dL (12.0-16.0); LYMPHOCYTES # (AUTO) 2.3 (1.0-3.2); LYMPHOCYTES % 21.9 % (18.0-39.1); MEAN CORPUSCULAR HEMOGLOBIN 30.8 pg (28-32); MEAN CORPUSCULAR HGB CONC 33.6 g/dL (31-35); MEAN CORPUSCULAR VOLUME 91.8 fL (81-99); MONOCYTES # (AUTO) 0.8 (0.2-0.8); MONOCYTES % 7.7 % (4.4-11.3); NEUTROPHILS # (AUTO) 7.2 (2.1-6.9); NEUTROPHILS % 69.5 % (38.7-80.0); PLATELET COUNT 170 x10e3/uL (140-360); RED BLOOD COUNT 4.25 x10e6/uL (3.6-5.1); RED CELL DISTRIBUTION WIDTH 14.1 % (11.7-14.4)
[2019-05-31 05:59] LABS: ANION GAP 10.4 mmol/L (8-16); BLOOD UREA NITROGEN 16 mg/dL (7-26); BUN/CREATININE RATIO 20 (6-25); CALCIUM 7.8 mg/dL (8.4-10.2); CARBON DIOXIDE 28 mmol/L (22-29); CHLORIDE 101 mmol/L (98-107); CREATININE, SERUM 0.82 mg/dL (0.57-1.11); EST GLOMERULAR FILTRATION RATE > 60 ML/MIN (60-); GLUCOSE 97 mg/dL (74-118); MAGNESIUM 1.5 MG/DL (1.3-2.1); PHOSPHORUS 2.7 MG/DL (2.3-4.7); POTASSIUM 4.4 mmol/L (3.5-5.1); SODIUM 135 mmol/L (136-145)
--- NOTE | 2019-05-31 06:01 | NUR ---
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 SBO- NPO; ambulate; antitemetics ORAL- IVF Hypothyroidism- consider IV tx in few days Prop: PPI; scd Dispo: sx consulted; IVF; monitor 3-24 f/u labs; feeling better; abdomen nontender. Jacobo Monahan MD, PhD.
[2019-05-31 08:00] VITALS: BP 105/50
[2019-05-31] MEDS: PANTOPRAZOLE 40 MG 10ML VIAL IV SCH (09:41)
--- NOTE | 2019-05-31 11:24 | Diagnostic Imaging Report ---
Exam: Abdominal film Clinical History: Small bowel obstruction Comparison: CT abdomen and pelvis 05/30/2019 DISCUSSION: Interval decrease in size in previously visualized markedly dilated proximal small bowel loop in the left upper quadrant, which is now only mildly dilated and measures 3.1 cm in transverse diameter. There is borderline to mild dilation of likely the distal transverse colon, which measures 6.2 cm. The rest of the bowel is normal in caliber. Contrast is noted in the proximal large bowel and bladder. There are no abnormal calcifications.No acute bone abnormality. IMPRESSION: 1. Interval decrease in size in previously visualized markedly dilated proximal small bowel loop in the left upper quadrant, which is now only mildly dilated. Contrast is noted in the proximal small bowel, suggesting improvement in previous obstruction. The staff physician below has personally reviewed this exam on the date of dictation. Signed by: Dr. Keith Garcia M.D. on 05/31/2019 11:21 AM
[2019-05-31 12:00] VITALS: BP 163/59
--- NOTE | 2019-05-31 13:09 | NUR ---
PT HAS HOME HEALTH THROUGH [facility] [phone] FAX [phone]
[2019-05-31 16:00] VITALS: BP 100/53
[2019-05-31 20:00] VITALS: BP 102/51
[2019-05-31 22:09] VITALS: BP 102/51
[2019-06-01] VITALS (7 sets, daily range): BP systolic 108–112; BP diastolic 50–56
--- NOTE | 2019-06-01 01:26 | NUR ---
Resting in the bed.call light within reach.no pain voiced.stable condition.tolerates the diet.
[2019-06-01] MEDS: SODIUM CHLORIDE 0.9% 1000ML 1,000 ML IV SCH (03:19)
[2019-06-01 05:58] LABS: BASOPHILS % 0.3 % (0.0-1.0); EOSINOPHILS # (AUTO) 0.1 (0.0-0.4); EOSINOPHILS % 1.3 % (0.0-6.0); HEMATOCRIT 38.8 % (34.2-44.1); HEMOGLOBIN 12.6 g/dL (12.0-16.0); LYMPHOCYTES # (AUTO) 2.4 (1.0-3.2); LYMPHOCYTES % 24.9 % (18.0-39.1); MEAN CORPUSCULAR HEMOGLOBIN 30.4 pg (28-32); MEAN CORPUSCULAR HGB CONC 32.5 g/dL (31-35); MEAN CORPUSCULAR VOLUME 93.5 fL (81-99); MONOCYTES # (AUTO) 0.5 (0.2-0.8); MONOCYTES % 5.6 % (4.4-11.3); NEUTROPHILS # (AUTO) 6.4 (2.1-6.9); NEUTROPHILS % 67.7 % (38.7-80.0); PLATELET COUNT 168 x10e3/uL (140-360); RED BLOOD COUNT 4.15 x10e6/uL (3.6-5.1); RED CELL DISTRIBUTION WIDTH 14.2 % (11.7-14.4)
--- NOTE | 2019-06-01 06:07 | NUR ---
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 SBO- NPO; ambulate; antitemetics ORAL- IVF Hypothyroidism- consider IV tx in few days Prop: PPI; scd Dispo: sx consulted; IVF; monitor 3-24 f/u labs; feeling better; abdomen nontender. 3-25 imaging yesterday suggest improvement in bowel dilatation; f/u labs; Jacobo Monahan MD, PhD.
[2019-06-01 06:39] LABS: ANION GAP 7.7 mmol/L (8-16); BLOOD UREA NITROGEN 12 mg/dL (7-26); BUN/CREATININE RATIO 15 (6-25); CALCIUM 8.4 mg/dL (8.4-10.2); CARBON DIOXIDE 30 mmol/L (22-29); CHLORIDE 103 mmol/L (98-107); EST GLOMERULAR FILTRATION RATE > 60 ML/MIN (60-); GLUCOSE 81 mg/dL (74-118); MAGNESIUM 1.5 MG/DL (1.3-2.1); PHOSPHORUS 2.5 MG/DL (2.3-4.7); POTASSIUM 3.7 mmol/L (3.5-5.1); SODIUM 137 mmol/L (136-145)
--- NOTE | 2019-06-01 07:00 | NUR ---
Bed side shift report given to oncoming Rn.stable condition.
--- NOTE | 2019-06-01 07:20 | NUR ---
PATIENT IS ALERT, AWAKE AND IN STABLE CONDITION WITH NO S/S OF RESPIRATORY DISTRESS. PATIENT DENIES PAIN. IV FLUIDS RESTARTED TO 50CC/HR. CALL LIGHT IS WITHIN REACH, PATIENT INSTRUCTED TO CALL FOR ASSISTANCE NEEDED.
[2019-06-01] MEDS: PANTOPRAZOLE 40 MG 10ML VIAL IV SCH (08:23)
[2019-06-01] MEDS: MORPHINE SULFATE INJ 4 MG/ML INJ 1ML IV PRN (14:34)
[2019-06-01] MEDS: ONDANSETRON HCL INJ 2MG/ML 2ML 2 MG/ML VIAL IV PRN (14:34)
--- NOTE | 2019-06-01 19:00 | NUR ---
patient received awake, alert, lying quietly in bed. no c/o pain noted. ivf continue to infuse without difficulty. pm assessment complete. patient instructed to call for assistance when needed.
--- NOTE | 2019-06-01 19:04 | NUR ---
PATIENT IN STABLE CONDITION WITH NO S/S OF RESPIRATORY DISTRESS-NO PAIN VOICED. CALL LIGHT IS WITHIN REACH, PATIENT INSTRUCTED TO CALL FOR ASSISTANCE NEEDED. BEDSIDE SHIFT REPORT GIVEN TO ONCOMING NURSE.
[2019-06-02] VITALS (8 sets, daily range): BP systolic 114–138; BP diastolic 55–64
[2019-06-02] MEDS: SODIUM CHLORIDE 0.9% 1000ML 1,000 ML IV SCH (01:52)
--- NOTE | 2019-06-02 07:17 | NUR ---
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 SBO- NPO; ambulate; antitemetics ORAL- IVF Hypothyroidism- consider IV tx in few days Prop: PPI; scd Dispo: sx consulted; IVF; monitor 3- f/u labs; feeling better; abdomen nontender. - imaging yesterday suggest improvement in bowel dilatation; f/u labs; 06/01 f/u sx plan; Jacobo Monahan MD, PhD.
--- NOTE | 2019-06-02 07:30 | NUR ---
PATIENT IS AWAKE, ALERT, AND IN STABLE CONDITION WITH NO S/S OF RESPIRATORY DISTRESS. PATIENT DENIES PAIN. IV FLUIDS INFUSING. CALL LIGHT IS WITHIN REACH OF PATIENT, PATIENT INSTRUCTED TO CALL FOR ASSISTANCE NEEDED.
[2019-06-02] MEDS: PANTOPRAZOLE 40 MG 10ML VIAL IV SCH (08:26)
--- NOTE | 2019-06-02 19:00 | NUR ---
patient received awake, alert, lying quietly in bed. no c/o pain noted. pm assessment complete. patient instructed to call for assistance when needed.
--- NOTE | 2019-06-02 19:04 | NUR ---
PATIENT IS IN STABLE CONDITION WITH NO S/S OF RESPIRATORY DISTRESS. NO PAIN VOICED. IV SALINE LOCKED. CALL LIGHT IS WITHIN REACH OF PATIENT- PATIENT INSTRUCTED TO CALL FOR ASSISTANCE NEEDED. BEDSIDE REPORT GIVEN TO ONCOMING NURSE.
[2019-06-02] MEDS ORDERED: SIMETHICONE 80 MG CHEW PO PRN (21:00)
[2019-06-03] VITALS: BP 132/64
[2019-06-03 04:00] VITALS: BP 129/60
--- NOTE | 2019-06-03 07:12 | NUR ---
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 SBO- NPO; ambulate; antitemetics ORAL- IVF Secondary Dx: Hypothyroidism- consider IV tx in few days Prop: PPI; scd Dispo: sx consulted; IVF; monitor 3-24 f/u labs; feeling better; abdomen nontender. 05-31 imaging yesterday suggest improvement in bowel dilatation; f/u labs; 06/01 f/u sx plan; 06/02 improved; d/c home stable d/c home f/u pcp 1 week and GI 1 week d/c>35mins Jacobo Monahan MD, PhD.
[2019-06-03 07:30] VITALS: BP 130/64
[2019-06-03 08:00] VITALS: BP 130/65
[2019-06-03] MEDS: PANTOPRAZOLE 40 MG 10ML VIAL IV SCH (10:14)
[2019-06-03 12:00] VITALS: BP 139/69
[2019-06-03 16:00] VITALS: BP 146/66
== END 2019-06-03 19:50 | disposition home or self-care (01) | DRG 389 ==
LOC: ER 05:58 → ERHOLD 08:57 → MED/SURG3 11:08
PROVIDERS: ADMIT Internal Medicine; ATTEND Internal Medicine
DX: K56.1 Intussusception (principal); N17.9 Acute kidney failure, unspecified; K56.609 Unspecified intestinal obstruction, unspecified as to partial versus complete obstruction; E03.9 Hypothyroidism, unspecified; Z85.038 Personal history of other malignant neoplasm of large intestine; M81.0 Age-related osteoporosis without current pathological fracture; Z85.028 Personal history of other malignant neoplasm of stomach; Z90.3 Acquired absence of stomach [part of]
CPT/HCPCS: 36415; 71046; 74018; 74177; 80048; 80053; 81001; 82150; 82550; 82553; 83690; 83735; 84100; 84484; 85025; 93005; 99284; J2270; J2405; J2550; J7030; J7040; Q9967

== ENCOUNTER → 2019-08-04 | Day surgery (SDC) | payer MEDICARE, OTHER ==
[2019-07-30 12:08] LABS: BASOPHILS % 0.7 % (0.0-1.0); EOSINOPHILS % 0.5 % (0.0-6.0); HEMATOCRIT 39.6 % (34.2-44.1); LYMPHOCYTES # (AUTO) 2.2 (1.0-3.2); LYMPHOCYTES % 38.1 % (18.0-39.1); MEAN CORPUSCULAR HEMOGLOBIN 30.4 pg (28-32); MEAN CORPUSCULAR HGB CONC 32.8 g/dL (31-35); MEAN CORPUSCULAR VOLUME 92.5 fL (81-99); MONOCYTES # (AUTO) 0.6 (0.2-0.8); NEUTROPHILS # (AUTO) 2.9 (2.1-6.9); NEUTROPHILS % 49.5 % (38.7-80.0); PLATELET COUNT 225 x10e3/uL (140-360); RED BLOOD COUNT 4.28 x10e6/uL (3.6-5.1); RED CELL DISTRIBUTION WIDTH 13.7 % (11.7-14.4)
[~2019-08-04] MED LIST changes: +ALENDRONAT70 MG/75 M PO; +ANORO ELLIPTA1 EACH; +CALCIUM PO; +ESOMEPRAZOLE SO40 MG PO; +IRON PO; +PROPOFOL IV EMULSION 10 MG/ML 20 ML VIAL ONE; +SUPER B-50 COM1 EACH PO; +VIT C PO; +VIT D2 INJ
[2019-08-04 08:20] VITALS: BP 130/81
== END | disposition home or self-care (01) ==
LOC: OR 06:01
PROVIDERS: ATTEND Internal Medicine Gastroenterology
DX: K29.50 Unspecified chronic gastritis without bleeding (principal); Z98.0 Intestinal bypass and anastomosis status; Z85.028 Personal history of other malignant neoplasm of stomach; R06.09 Other forms of dyspnea; I10 Essential (primary) hypertension; Z01.810 Encounter for preprocedural cardiovascular examination; Z01.812 Encounter for preprocedural laboratory examination; Z11.59 Encounter for screening for other viral diseases; Z68.1 Body mass index [BMI] 19.9 or less, adult
CPT/HCPCS: 36415; 43239; 85025; 87635; 88305; 93005; J2704

== ENCOUNTER 2020-08-04 13:40 | Observation (INO) | payer MEDICARE ==
[~2020-08-04] VITALS: Ht 157.5 cm; Wt 39.0 kg
[~2020-08-04 13:40] MED LIST changes: -PROPOFOL IV EMULSION 10 MG/ML 20 ML VIAL ONE
[2020-08-04] MEDS ORDERED: ASPIRIN 81 MG CHEW TAB PO NR (14:15)
[2020-08-04] MEDS ORDERED: PANTOPRAZOLE 40 MG 10ML VIAL IV NR (14:15)
[2020-08-04] MEDS ORDERED: SODIUM CHLORIDE 0.9% 500ML 500 ML IV ONE (14:15)
[2020-08-04 14:51] LABS: BASOPHILS % 0.5 % (0.0-1.0); EOSINOPHILS % 0.3 % (0.0-6.0); HEMATOCRIT 39.9 % (34.2-44.1); HEMOGLOBIN 13.2 g/dL (12.0-16.0); LYMPHOCYTES # (AUTO) 1.4 (1.0-3.2); LYMPHOCYTES % 23.6 % (18.0-39.1); MEAN CORPUSCULAR HEMOGLOBIN 30.3 pg (28-32); MEAN CORPUSCULAR HGB CONC 33.1 g/dL (31-35); MEAN CORPUSCULAR VOLUME 91.7 fL (81-99); MONOCYTES # (AUTO) 0.5 (0.2-0.8); MONOCYTES % 9.2 % (4.4-11.3); NEUTROPHILS # (AUTO) 3.9 (2.1-6.9); NEUTROPHILS % 66.1 % (38.7-80.0); PLATELET COUNT 303 x10e3/uL (140-360); RED BLOOD COUNT 4.35 x10e6/uL (3.6-5.1); RED CELL DISTRIBUTION WIDTH 13.4 % (11.7-14.4)
[2020-08-04] MEDS ORDERED: ALBUTEROL/IPRATROPIUM 3 ML NEB NEB NR (15:00)
[2020-08-04 15:03] LABS: INR 0.9; PROTHROMBIN TIME 12.7 seconds (11.9-14.5)
[2020-08-04 15:04] LABS: PARTIAL THROMBOPLASTIN TIME 29.7 seconds (23.8-35.5)
[2020-08-04 15:13] LABS: ALANINE AMINOTRANSFERASE 46 IU/L (0-55); ALBUMIN 3.9 g/dL (3.5-5.0); ALBUMIN/GLOBULIN RATIO 1.1 (0.8-2.0); ALKALINE PHOSPHATASE 88 IU/L (40-150); ANION GAP 15.7 mmol/L (8-16); BLOOD UREA NITROGEN 11 mg/dL (7-26); BUN/CREATININE RATIO 13 (6-25); CARBON DIOXIDE 30 mmol/L (22-29); CHLORIDE 97 mmol/L (98-107); CREATINE KINASE 116 IU/L (29-168); CREATININE, SERUM 0.82 mg/dL (0.57-1.11); EST GLOMERULAR FILTRATION RATE > 60 ML/MIN (60-); GLUCOSE 95 mg/dL (74-118); MAGNESIUM 1.9 MG/DL (1.3-2.1); POTASSIUM 3.7 mmol/L (3.5-5.1); SODIUM 139 mmol/L (136-145)
[2020-08-04] MEDS: ALBUTEROL/IPRATROPIUM 3 ML NEB NEB PRN (15:25)
[2020-08-04] MEDS ORDERED: NITROGLYCERIN 0.4 MG SUBL SL PRN (15:30)
[2020-08-04] MEDS ORDERED: MORPHINE SULFATE INJ 2 MG/ML SYR IV PRN (15:30)
[2020-08-04] MEDS ORDERED: ONDANSETRON HCL INJ 2MG/ML 2ML 2 MG/ML VIAL IV PRN (15:30)
[2020-08-04 15:34] LABS: THYROID STIMULATING HORMONE 0.916 uIU/mL (0.350-4.940)
[2020-08-04 16:42] VITALS: BP 138/89
[2020-08-04] MEDS ORDERED: TRELEGY ELLIPT1 EACH INH (17:30)
[2020-08-04 17:33] VITALS: BP 138/89
[2020-08-04 20:00] VITALS: BP 126/65
[2020-08-04] MEDS: FAMOTIDINE 20 MG/2 ML VIAL IV SCH (20:33)
[2020-08-04 21:05] VITALS: BP 126/65
[2020-08-05] VITALS (8 sets, daily range): BP systolic 102–140; BP diastolic 59–72
[2020-08-05 05:46] LABS: BASOPHILS % 0.8 % (0.0-1.0); EOSINOPHILS # (AUTO) 0.1 (0.0-0.4); EOSINOPHILS % 0.9 % (0.0-6.0); HEMATOCRIT 38.8 % (34.2-44.1); HEMOGLOBIN 13.1 g/dL (12.0-16.0); LYMPHOCYTES # (AUTO) 2.1 (1.0-3.2); LYMPHOCYTES % 39.4 % (18.0-39.1); MEAN CORPUSCULAR HEMOGLOBIN 30.5 pg (28-32); MEAN CORPUSCULAR HGB CONC 33.8 g/dL (31-35); MEAN CORPUSCULAR VOLUME 90.2 fL (81-99); MONOCYTES # (AUTO) 0.5 (0.2-0.8); MONOCYTES % 9.8 % (4.4-11.3); NEUTROPHILS # (AUTO) 2.6 (2.1-6.9); NEUTROPHILS % 48.7 % (38.7-80.0); PLATELET COUNT 287 x10e3/uL (140-360); RED CELL DISTRIBUTION WIDTH 13.3 % (11.7-14.4)
[2020-08-05 06:15] LABS: ALANINE AMINOTRANSFERASE 43 IU/L (0-55); ALBUMIN 3.3 g/dL (3.5-5.0); ALBUMIN/GLOBULIN RATIO 0.9 (0.8-2.0); ALKALINE PHOSPHATASE 68 IU/L (40-150); ANION GAP 13.1 mmol/L (8-16); BLOOD UREA NITROGEN 11 mg/dL (7-26); BUN/CREATININE RATIO 13 (6-25); CALCIUM 9.1 mg/dL (8.4-10.2); CARBON DIOXIDE 27 mmol/L (22-29); CHLORIDE 99 mmol/L (98-107); CHOLESTEROL 168 MD/DL (0-199); CREATININE, SERUM 0.87 mg/dL (0.57-1.11); EST GLOMERULAR FILTRATION RATE > 60 ML/MIN (60-); GLUCOSE 141 mg/dL (74-118); HDL CHOLESTEROL 83 MG/DL (40-60); LDL CHOLESTEROL 73 MG/DL (60-130); POTASSIUM 4.1 mmol/L (3.5-5.1); SODIUM 135 mmol/L (136-145); TRIGLYCERIDES 59 MG/DL (0-149)
[2020-08-05 06:28] LABS: CREATINE KINASE 64 IU/L (29-168)
[2020-08-05] MEDS: FAMOTIDINE 20 MG/2 ML VIAL IV SCH ×2 (09:08→21:33)
[2020-08-05] MEDS: ASPIRIN 81 MG ENTERIC COATED PO SCH (09:08)
[2020-08-05] MEDS ORDERED: DOCUSATE SODIUM 100 MG CAP PO PRN (10:15)
[2020-08-05] MEDS: ALBUTEROL/IPRATROPIUM 3 ML NEB NEB PRN (10:15)
[2020-08-05] MEDS ORDERED: ACETAMINOPHEN 325 MG TAB PO PRN (11:15)
[2020-08-05 12:17] LABS: CREATINE KINASE 64 IU/L (29-168)
[2020-08-05] MEDS: ALPRAZOLAM 0.25 MG TAB PO SCH ×2 (14:00→21:33)
[2020-08-05] MEDS: CYCLOBENZAPRINE HCL 10 MG TAB PO SCH ×2 (14:00→21:33)
[2020-08-05] MEDS ORDERED: ENOXAPARIN SOD INJ 40 MG/0.4 ML SYR SC SCH (17:00)
[2020-08-05] MEDS ORDERED: ZOLPIDEM TARTRATE 5 MG TAB PO PRN (21:00)
[2020-08-06 01:52] VITALS: BP 129/71
[2020-08-06] MEDS: CYCLOBENZAPRINE HCL 10 MG TAB PO SCH ×2 (05:41→14:00)
[2020-08-06] MEDS: ALPRAZOLAM 0.25 MG TAB PO SCH (05:41)
[2020-08-06] MEDS ORDERED: LEVOTHYROXINE SODIUM 50 MCG TAB PO SCH (06:00)
[2020-08-06 06:31] VITALS: BP 140/74
[2020-08-06] MEDS ORDERED: LIOTHYRONINE SODIUM 5 MCG TAB PO SCH (07:30)
[2020-08-06 07:47] VITALS: BP 168/85
[2020-08-06] MEDS: FAMOTIDINE 20 MG/2 ML VIAL IV SCH (08:37)
[2020-08-06] MEDS: ASPIRIN 81 MG ENTERIC COATED PO SCH (08:38)
[2020-08-06 08:55] VITALS: BP 168/85
[2020-08-06] MEDS ORDERED: BISOPROLOL FUMARATE PO SCH (09:00)
[2020-08-06] MEDS ORDERED: PANTOPRAZOLE SOD 40 MG TABEC PO SCH (09:00)
[2020-08-06] MEDS ORDERED: MAGNESIUM OXIDE 400 MG TAB PO SCH (09:00)
[2020-08-06] MEDS ORDERED: [UNRECOGNIZED DRUG - OTHER] PO SCH (09:00)
[2020-08-06] MEDS ORDERED: HCTZ PO SCH (09:00)
[2020-08-06 12:30] VITALS: BP 149/73
[2020-08-06] MEDS ORDERED: PROTONIX40 MG/ML PO (14:52)
[2020-08-06] MEDS ORDERED: SUCRALFATE1 GM PO (14:52)
[2020-08-06] MEDS ORDERED: COLACE100 MG PO (14:52)
[2020-08-06] MEDS ORDERED: CYCLOBENZAPRINE10 MG PO (14:52)
[2020-08-06 15:49] VITALS: BP 116/67
== END 2020-08-06 16:40 | disposition home or self-care (01) ==
LOC: ER 15:15 → ERHOLD 15:24 → MED/SURG2 16:25
PROVIDERS: ADMIT Internal Medicine; ATTEND Internal Medicine
DX: K21.9 Gastro-esophageal reflux disease without esophagitis (principal); J44.9 Chronic obstructive pulmonary disease, unspecified; I10 Essential (primary) hypertension; E03.9 Hypothyroidism, unspecified; Z85.028 Personal history of other malignant neoplasm of stomach; Z20.822 Contact with and (suspected) exposure to COVID-19; R10.13 Epigastric pain; E43 Unspecified severe protein-calorie malnutrition; Z68.1 Body mass index [BMI] 19.9 or less, adult; M62.838 Other muscle spasm; F41.9 Anxiety disorder, unspecified
CPT/HCPCS: 36415 ×2; 71045; 80053 ×2; 80061; 82550 ×2; 82553 ×2; 83735; 83880; 84443; 84484 ×2; 85025 ×2; 85379; 85610; 85730; 93005; 94640 ×2; 97161; 97530; 99284; C9113; G0378 ×3; J1650; J2270; J2405; J7040; S0164; U0002

== ENCOUNTER 2021-08-15 08:26 | Emergency (ER) | payer MEDICARE ==
[~2021-08-15] VITALS: Ht 309.9 cm; Wt 39.0 kg
[~2021-08-15 08:26] MED LIST changes: +CYCLOBENZAPRINE10 MG PO; +PROTONIX40 MG/ML PO; +SUCRALFATE1 GM PO; +TRELEGY ELLIPT1 EACH INH
== END 2021-08-15 09:27 | disposition home or self-care (01) ==
LOC: ER 08:55
DX: J04.0 Acute laryngitis (principal)
CPT/HCPCS: 99284

== ENCOUNTER 2021-12-24 07:49 | Inpatient (IN) | payer MEDICARE ==
[~2021-12-24] VITALS: Ht 157.5 cm; Wt 38.2 kg
[~2021-12-24 07:49] MED LIST changes: -LIOTHYRONINE SO5 MCG; +LIOTHYRONINE SO5 MCG PO
[2021-12-24] MEDS ORDERED: ONDANSETRON HCL INJ 2MG/ML 2ML 2 MG/ML VIAL IV STA (07:59)
[2021-12-24 08:16] LABS: BASOPHILS % 0.4 % (0.0-1.0); EOSINOPHILS % 0.3 % (0.0-6.0); HEMATOCRIT 42.8 % (34.2-44.1); HEMOGLOBIN 14.6 g/dL (12.0-16.0); LYMPHOCYTES # (AUTO) 1.4 (1.0-3.2); LYMPHOCYTES % 14.2 % (18.0-39.1); MEAN CORPUSCULAR HEMOGLOBIN 30.1 pg (28-32); MEAN CORPUSCULAR HGB CONC 34.1 g/dL (31-35); MEAN CORPUSCULAR VOLUME 88.2 fL (81-99); MONOCYTES # (AUTO) 0.4 (0.2-0.8); NEUTROPHILS # (AUTO) 7.7 (2.1-6.9); NEUTROPHILS % 80.8 % (38.7-80.0); PLATELET COUNT 263 x10e3/uL (140-360); RED BLOOD COUNT 4.85 x10e6/uL (3.6-5.1); RED CELL DISTRIBUTION WIDTH 13.5 % (11.7-14.4)
[2021-12-24] MEDS ORDERED: SODIUM CHLORIDE 0.9% 500ML 500 ML ONE (08:21)
[2021-12-24 08:23] LABS: CLARITY,URINE CLEAR (CLEAR); COLOR,URINE YELLOW (YELLOW)
[2021-12-24 08:24] LABS: KETONES,URINE NEGATIVE (NEGATIVE); LEUKOCYTE ESTERASE ,URINE NEGATIVE (NEGATIVE); NITRITE,URINE NEGATIVE (NEGATIVE); PROTEIN,URINE DIPSTICK NEGATIVE (NEGATIVE); URINE UROBILINOGEN 0.2 mg/dL (0.2 - 1)
[2021-12-24 08:27] LABS: BACTERIA,URINE FEW /HPF; WBC,URINE (MAN) 0-5 /HPF (0-5)
[2021-12-24 09:09] LABS: LIPASE 42 U/L (8-78)
[2021-12-24] MEDS ORDERED: FENTANYL CITRATE/PF 100MCG/2 ML INJ IV PRN (09:15)
[2021-12-24 09:16] LABS: ALBUMIN/GLOBULIN RATIO 1.2 (0.8-2.0); ANION GAP 15.7 mmol/L (8-16); CALCIUM 9.2 mg/dL (8.4-10.2); CREATININE, SERUM 0.98 mg/dL (0.57-1.11); POTASSIUM 4.7 mmol/L (3.5-5.1)
[2021-12-24] MEDS ORDERED: IOPAMIDOL 370 MG/ML 100 ML INFUS..BTL INJ ONE (11:07)
[2021-12-24] MEDS ORDERED: SODIUM CHLORIDE 0.9% 1000ML 1,000 ML IV SCH (12:30)
[2021-12-24] MEDS ORDERED: Morphine 4mg INJECTION 4 MG/ML INJ IV PRN (12:30)
[2021-12-24] MEDS: ONDANSETRON HCL INJ 2MG/ML 2ML 2 MG/ML VIAL IV PRN ×2 (12:47→17:23)
[2021-12-24] MEDS ORDERED: DODEX1000 MCG/1 IM (15:22)
[2021-12-24] MEDS ORDERED: VITAMIN D350 MCG PO (15:25)
[2021-12-24 16:38] VITALS: BP 171/72
[2021-12-24] MEDS: HYDROMORPHONE 1MG/1ML INJ IV PRN ×2 (17:23→22:50)
[2021-12-24] MEDS: SODIUM CHLORIDE 0.9% 250ML IRRIG IR SCH ×2 (17:45→23:44)
[2021-12-24] MEDS ORDERED: ACETAMINOPHEN 650 MG SUPP PR PRN (18:15)
[2021-12-24 19:44] VITALS: BP 144/72
[2021-12-24] MEDS: DEXTROSE 5%/0.9% SOD CHL 1,000 ML IV SCH (19:50)
[2021-12-24 20:57] VITALS: BP 144/72
[2021-12-25] VITALS (8 sets, daily range): BP systolic 101–168; BP diastolic 58–71
[2021-12-25] MEDS: SODIUM CHLORIDE 0.9% 250ML IRRIG IR SCH ×5 (01:52→18:24)
[2021-12-25] MEDS: DEXTROSE 5%/0.9% SOD CHL 1,000 ML IV SCH ×3 (03:40→18:24)
[2021-12-25 04:50] LABS: BASOPHILS % 0.3 % (0.0-1.0); EOSINOPHILS # (AUTO) 0.1 (0.0-0.4); EOSINOPHILS % 0.8 % (0.0-6.0); HEMATOCRIT 37.5 % (34.2-44.1); HEMOGLOBIN 12.6 g/dL (12.0-16.0); LYMPHOCYTES # (AUTO) 1.4 (1.0-3.2); MEAN CORPUSCULAR HEMOGLOBIN 29.8 pg (28-32); MEAN CORPUSCULAR HGB CONC 33.6 g/dL (31-35); MEAN CORPUSCULAR VOLUME 88.7 fL (81-99); MONOCYTES # (AUTO) 0.4 (0.2-0.8); MONOCYTES % 5.3 % (4.4-11.3); NEUTROPHILS # (AUTO) 6.1 (2.1-6.9); NEUTROPHILS % 76.3 % (38.7-80.0); PLATELET COUNT 210 x10e3/uL (140-360); RED BLOOD COUNT 4.23 x10e6/uL (3.6-5.1); RED CELL DISTRIBUTION WIDTH 13.8 % (11.7-14.4)
[2021-12-25] MEDS: HYDROMORPHONE 1MG/1ML INJ IV PRN (06:25)
[2021-12-25] MEDS ORDERED: CHLORASEPTIC SPRAY 177 ML BTL MM PRN (09:00)
[2021-12-25 09:30] LABS: MAGNESIUM 1.4 MG/DL (1.3-2.1)
[2021-12-25 10:22] LABS: PHOSPHORUS 2.5 MG/DL (2.3-4.7)
[2021-12-25 11:11] LABS: ANION GAP 16.1 mmol/L (8-16); CALCIUM 7.7 mg/dL (8.4-10.2); CREATININE, SERUM 0.81 mg/dL (0.57-1.11); POTASSIUM 4.1 mmol/L (3.5-5.1)
[2021-12-25] MEDS ORDERED: CLONIDINE HCL 0.1 MG/24 HR 1 EA PATCH TOP SCH (19:45)
[2021-12-25] MEDS: METOPROLOL TARTRATE INJ 1 MG/ML VIAL IV SCH (23:30)
[2021-12-26] VITALS (9 sets, daily range): BP systolic 124–168; BP diastolic 65–84
[2021-12-26] MEDS: SODIUM CHLORIDE 0.9% 250ML IRRIG IR SCH ×6 (00:27→17:09)
[2021-12-26] MEDS: DEXTROSE 5%/0.9% SOD CHL 1,000 ML IV SCH ×3 (01:31→18:15)
[2021-12-26] MEDS: METOPROLOL TARTRATE INJ 1 MG/ML VIAL IV SCH ×3 (05:34→18:32)
[2021-12-26 09:28] LABS: BASOPHILS % 0.2 % (0.0-1.0); EOSINOPHILS % 0.3 % (0.0-6.0); HEMATOCRIT 38.9 % (34.2-44.1); HEMOGLOBIN 12.6 g/dL (12.0-16.0); LYMPHOCYTES # (AUTO) 1.8 (1.0-3.2); LYMPHOCYTES % 19.3 % (18.0-39.1); MEAN CORPUSCULAR HEMOGLOBIN 30.2 pg (28-32); MEAN CORPUSCULAR HGB CONC 32.4 g/dL (31-35); MEAN CORPUSCULAR VOLUME 93.3 fL (81-99); MONOCYTES # (AUTO) 0.6 (0.2-0.8); MONOCYTES % 6.4 % (4.4-11.3); NEUTROPHILS # (AUTO) 6.8 (2.1-6.9); NEUTROPHILS % 73.6 % (38.7-80.0); PLATELET COUNT 198 x10e3/uL (140-360); RED BLOOD COUNT 4.17 x10e6/uL (3.6-5.1); RED CELL DISTRIBUTION WIDTH 13.5 % (11.7-14.4)
[2021-12-26 09:46] LABS: ALBUMIN 2.9 g/dL (3.5-5.0); ALBUMIN/GLOBULIN RATIO 0.9 (0.8-2.0); ANION GAP 11.7 mmol/L (8-16); CALCIUM 8.1 mg/dL (8.4-10.2); CREATININE, SERUM 0.73 mg/dL (0.57-1.11); POTASSIUM 3.7 mmol/L (3.5-5.1)
[2021-12-26 10:05] LABS: MAGNESIUM 1.2 MG/DL (1.3-2.1); PHOSPHORUS 1.9 MG/DL (2.3-4.7)
[2021-12-26] MEDS ORDERED: DIATRIZOATE MEGL/DIATRIZOA SOD 120 ML BTL PO ONE (15:37)
[2021-12-27] VITALS (8 sets, daily range): BP systolic 118–144; BP diastolic 61–82
[2021-12-27] MEDS: DEXTROSE 5%/0.9% SOD CHL 1,000 ML IV SCH ×2 (02:00→14:57)
[2021-12-27] MEDS: METOPROLOL TARTRATE INJ 1 MG/ML VIAL IV SCH ×4 (06:28→17:08)
[2021-12-27 09:37] LABS: BASOPHILS % 0.4 % (0.0-1.0); EOSINOPHILS % 0.4 % (0.0-6.0); HEMATOCRIT 36.3 % (34.2-44.1); HEMOGLOBIN 11.6 g/dL (12.0-16.0); LYMPHOCYTES # (AUTO) 1.6 (1.0-3.2); LYMPHOCYTES % 20.6 % (18.0-39.1); MEAN CORPUSCULAR VOLUME 93.8 fL (81-99); MONOCYTES # (AUTO) 0.5 (0.2-0.8); MONOCYTES % 6.5 % (4.4-11.3); NEUTROPHILS # (AUTO) 5.7 (2.1-6.9); PLATELET COUNT 184 x10e3/uL (140-360); RED BLOOD COUNT 3.87 x10e6/uL (3.6-5.1); RED CELL DISTRIBUTION WIDTH 13.5 % (11.7-14.4)
[2021-12-27 09:57] LABS: ALBUMIN 2.6 g/dL (3.5-5.0); ALBUMIN/GLOBULIN RATIO 0.9 (0.8-2.0); ANION GAP 9.7 mmol/L (8-16); CALCIUM 7.8 mg/dL (8.4-10.2); CREATININE, SERUM 0.7 mg/dL (0.57-1.11); POTASSIUM 3.7 mmol/L (3.5-5.1)
[2021-12-27 10:10] LABS: MAGNESIUM 1.2 MG/DL (1.3-2.1); PHOSPHORUS 1.7 MG/DL (2.3-4.7)
[2021-12-28] VITALS: BP 136/72
[2021-12-28] MEDS: DEXTROSE 5%/0.9% SOD CHL 1,000 ML IV SCH (00:26)
[2021-12-28] MEDS: METOPROLOL TARTRATE INJ 1 MG/ML VIAL IV SCH ×3 (00:26→12:39)
[2021-12-28 04:00] VITALS: BP 132/62
[2021-12-28 09:00] VITALS: BP 132/62
[2021-12-28 09:09] VITALS: BP 109/60
[2021-12-28] MEDS ORDERED: PANTOPRAZOLE SO40 MG PO (11:12)
[2021-12-28] MEDS ORDERED: MAGNESIUM OXIDE 400 MG TAB PO ONE (11:15)
[2021-12-28] MEDS ORDERED: PHOSPHORUS 250 MG TAB PO ONE (12:00)
[2021-12-28 12:54] VITALS: BP 136/65
== END 2021-12-28 14:03 | disposition home or self-care (01) | DRG 388 ==
LOC: ER 07:54 → ERHOLD 12:22 → MED/SURG 14:45
PROVIDERS: ADMIT Internal Medicine; ATTEND Internal Medicine
DX: K56.1 Intussusception (principal); E43 Unspecified severe protein-calorie malnutrition; K94.19 Other complications of enterostomy; Z68.1 Body mass index [BMI] 19.9 or less, adult; E87.1 Hypo-osmolality and hyponatremia; R64 Cachexia; K20.90 Esophagitis, unspecified without bleeding; I10 Essential (primary) hypertension; F41.9 Anxiety disorder, unspecified; E03.9 Hypothyroidism, unspecified; Z85.028 Personal history of other malignant neoplasm of stomach; Z20.822 Contact with and (suspected) exposure to COVID-19
CPT/HCPCS: 0223U; 36415; 71045; 74018; 74177; 74240; 80053; 81001; 82150; 83690; 83735; 84100; 84134; 84484; 85025; 93005; 94799; 96361; 99251; 99284; J1170; J2270; J2405; J3010; J7030; J7040; J7042; Q9963; Q9967

== ENCOUNTER 2022-01-24 05:47 | Inpatient (IN) | payer MEDICARE ==
[~2022-01-24] VITALS: Ht 157.5 cm; Wt 38.1 kg
[~2022-01-24 05:47] MED LIST changes: +DODEX1000 MCG/1 IM; +PANTOPRAZOLE SO40 MG PO; +VITAMIN D350 MCG PO
[2022-01-24] MEDS ORDERED: SODIUM CHLORIDE 0.9% 1000ML 1,000 ML IV STA (06:12)
[2022-01-24 06:20] LABS: BASOPHILS % 0.1 % (0.0-1.0); HEMATOCRIT 40.5 % (34.2-44.1); HEMOGLOBIN 13.6 g/dL (12.0-16.0); LYMPHOCYTES # (AUTO) 0.8 (1.0-3.2); LYMPHOCYTES % 9.8 % (18.0-39.1); MEAN CORPUSCULAR HEMOGLOBIN 30.4 pg (28-32); MEAN CORPUSCULAR HGB CONC 33.6 g/dL (31-35); MEAN CORPUSCULAR VOLUME 90.6 fL (81-99); MONOCYTES # (AUTO) 0.5 (0.2-0.8); MONOCYTES % 5.6 % (4.4-11.3); NEUTROPHILS % 84.1 % (38.7-80.0); PLATELET COUNT 196 x10e3/uL (140-360); RED BLOOD COUNT 4.47 x10e6/uL (3.6-5.1)
[2022-01-24 06:41] LABS: ALBUMIN 3.6 g/dL (3.5-5.0); CREATININE, SERUM 0.8 mg/dL (0.57-1.11)
[2022-01-24] MEDS: FENTANYL CITRATE/PF 100MCG/2 ML INJ IV PRN ×2 (06:42→09:26)
[2022-01-24 08:53] LABS: CLARITY,URINE CLEAR (CLEAR); COLOR,URINE YELLOW (YELLOW); KETONES,URINE NEGATIVE (NEGATIVE); LEUKOCYTE ESTERASE ,URINE NEGATIVE (NEGATIVE); NITRITE,URINE NEGATIVE (NEGATIVE); PROTEIN,URINE DIPSTICK NEGATIVE (NEGATIVE); URINE UROBILINOGEN 0.2 mg/dL (0.2 - 1)
[2022-01-24 08:55] LABS: RBC,URINE 21-50 /HPF (0-5); WBC,URINE (MAN) 0-5 /HPF (0-5)
[2022-01-24 08:56] LABS: BACTERIA,URINE FEW /HPF; EPITHELIAL CELLS,URINE FEW /LPF
[2022-01-24] MEDS ORDERED: ONDANSETRON HCL INJ 2MG/ML 2ML 2 MG/ML VIAL IV PRN (09:30)
[2022-01-24] MEDS ORDERED: Morphine 4mg INJECTION 4 MG/ML INJ IV PRN (09:30)
[2022-01-24 10:15] VITALS: BP 184/84
[2022-01-24] MEDS ORDERED: IOPAMIDOL 370 MG/ML 100 ML INFUS..BTL INJ ONE (11:45)
[2022-01-24 11:59] VITALS: BP 184/84
[2022-01-24] MEDS: SODIUM CHLORIDE 0.9% 1000ML 1,000 ML IV SCH (12:15)
[2022-01-24 12:26] VITALS: BP 173/77
[2022-01-24] MEDS ORDERED: FENTANYL CITRATE/PF 100MCG/2 ML INJ ONE ×2 (13:13→16:25)
[2022-01-24] MEDS ORDERED: PROPOFOL IV EMULSION 10 MG/ML 20 ML VIAL ONE (13:27)
[2022-01-24] MEDS ORDERED: LIDOCAINE HCL 2% LOCAL INJ 5 ML SDV VIAL INJ ONE (13:27)
[2022-01-24] MEDS ORDERED: ROCURONIUM BROMIDE 10 MG/ML 5ML VIAL IV ONE (13:27)
[2022-01-24] MEDS ORDERED: NEOSTIGMINE 1 MG/ML 10ML VIAL ONE (13:27)
[2022-01-24] MEDS ORDERED: SEVOFLURANE INHAL SOLN 250 ML PEN BTL ONE (13:27)
[2022-01-24] MEDS ORDERED: GLYCOPYRROLATE INJ 0.2 MG/ML VIAL ONE (13:27)
[2022-01-24] MEDS ORDERED: SUCCINYLCHOLINE CHLORIDE 20 MG/ML 10ML VIAL ONE (13:27)
[2022-01-24] MEDS ORDERED: ACETAMINOPHEN 1000 MG/100 ML IV PRN (16:00)
[2022-01-24] MEDS: SODIUM CHLORIDE 0.9% 250ML IRRIG IR SCH ×2 (16:00→20:19)
[2022-01-24] MEDS: ONDANSETRON HCL INJ 2MG/ML 2ML 2 MG/ML VIAL IV PRN (17:18)
[2022-01-24] MEDS: HYDROMORPHONE 1MG/1ML INJ IV PRN ×2 (17:18→20:21)
[2022-01-24 17:36] VITALS: BP 188/77
[2022-01-24] MEDS ORDERED: HYDRALAZINE HCL 20 MG/ML VIAL IV STA (19:02)
[2022-01-24] MEDS ORDERED: HYDRALAZINE HCL 20 MG/ML VIAL IV PRN (19:30)
[2022-01-24 20:16] VITALS: BP 128/70
[2022-01-24 20:36] VITALS: BP 128/70
[2022-01-25] VITALS (7 sets, daily range): BP systolic 128–162; BP diastolic 61–75
[2022-01-25] MEDS: SODIUM CHLORIDE 0.9% 250ML IRRIG IR SCH ×6 (02:15→19:58)
[2022-01-25] MEDS: SODIUM CHLORIDE 0.9% 1000ML 1,000 ML IV SCH ×4 (02:15→17:30)
[2022-01-25] MEDS: HYDROMORPHONE 1MG/1ML INJ IV PRN ×3 (05:30→15:22)
[2022-01-25 05:37] LABS: BASOPHILS % 0.1 % (0.0-1.0); HEMATOCRIT 37.4 % (34.2-44.1); HEMOGLOBIN 12.4 g/dL (12.0-16.0); LYMPHOCYTES # (AUTO) 1.2 (1.0-3.2); MEAN CORPUSCULAR HEMOGLOBIN 30.3 pg (28-32); MEAN CORPUSCULAR HGB CONC 33.2 g/dL (31-35); MEAN CORPUSCULAR VOLUME 91.4 fL (81-99); MONOCYTES # (AUTO) 0.5 (0.2-0.8); MONOCYTES % 6.4 % (4.4-11.3); NEUTROPHILS # (AUTO) 5.7 (2.1-6.9); NEUTROPHILS % 77.4 % (38.7-80.0); PLATELET COUNT 175 x10e3/uL (140-360); RED BLOOD COUNT 4.09 x10e6/uL (3.6-5.1); RED CELL DISTRIBUTION WIDTH 13.5 % (11.7-14.4)
[2022-01-25 05:55] LABS: CALCIUM 7.6 mg/dL (8.4-10.2); CREATININE, SERUM 0.76 mg/dL (0.57-1.11)
[2022-01-25] MEDS: ONDANSETRON HCL INJ 2MG/ML 2ML 2 MG/ML VIAL IV PRN ×2 (10:26→15:22)
[2022-01-26] VITALS (7 sets, daily range): BP systolic 138–173; BP diastolic 66–95
[2022-01-26] MEDS: HYDROMORPHONE 1MG/1ML INJ IV PRN ×5 (00:02→21:32)
[2022-01-26] MEDS: SODIUM CHLORIDE 0.9% 250ML IRRIG IR SCH ×4 (00:02→12:00)
[2022-01-26] MEDS: SODIUM CHLORIDE 0.9% 1000ML 1,000 ML IV SCH ×3 (04:42→18:13)
[2022-01-26 05:37] LABS: BASOPHILS % 0.4 % (0.0-1.0); EOSINOPHILS % 0.2 % (0.0-6.0); HEMATOCRIT 35.7 % (34.2-44.1); HEMOGLOBIN 11.7 g/dL (12.0-16.0); LYMPHOCYTES # (AUTO) 1.6 (1.0-3.2); LYMPHOCYTES % 19.2 % (18.0-39.1); MEAN CORPUSCULAR HEMOGLOBIN 30.3 pg (28-32); MEAN CORPUSCULAR HGB CONC 32.8 g/dL (31-35); MEAN CORPUSCULAR VOLUME 92.5 fL (81-99); MONOCYTES # (AUTO) 0.8 (0.2-0.8); MONOCYTES % 9.4 % (4.4-11.3); NEUTROPHILS # (AUTO) 5.8 (2.1-6.9); NEUTROPHILS % 70.6 % (38.7-80.0); PLATELET COUNT 166 x10e3/uL (140-360); RED BLOOD COUNT 3.86 x10e6/uL (3.6-5.1); RED CELL DISTRIBUTION WIDTH 13.6 % (11.7-14.4)
[2022-01-26 06:04] LABS: ANION GAP 14.1 mmol/L (8-16); CALCIUM 8.1 mg/dL (8.4-10.2); CREATININE, SERUM 0.72 mg/dL (0.57-1.11); POTASSIUM 4.1 mmol/L (3.5-5.1)
[2022-01-26] MEDS: ONDANSETRON HCL INJ 2MG/ML 2ML 2 MG/ML VIAL IV PRN ×2 (09:52→14:42)
[2022-01-26] MEDS: BISACODYL 10 MG SUPP PR SCH (21:31)
[2022-01-27] VITALS (8 sets, daily range): BP systolic 141–164; BP diastolic 66–74
[2022-01-27] MEDS: HYDROMORPHONE 1MG/1ML INJ IV PRN ×3 (04:08→22:32)
[2022-01-27] MEDS: SODIUM CHLORIDE 0.9% 1000ML 1,000 ML IV SCH ×2 (04:08→15:36)
[2022-01-27] MEDS: BISACODYL 10 MG SUPP PR SCH (08:00)
[2022-01-27] MEDS: ONDANSETRON HCL INJ 2MG/ML 2ML 2 MG/ML VIAL IV PRN ×2 (11:06→22:32)
[2022-01-27] MEDS ORDERED: ZIAC 2.5-6.251 EACH PO (20:53)
[2022-01-27] MEDS ORDERED: DODEX1000 MCG/1 IM (20:53)
[2022-01-27] MEDS ORDERED: LEVOTHYROXINE50 MC1 PO (20:53)
[2022-01-27] MEDS ORDERED: ALENDRONATE SOD70 MG (20:53)
[2022-01-28] VITALS (7 sets, daily range): BP systolic 140–163; BP diastolic 62–76
[2022-01-28] MEDS: SODIUM CHLORIDE 0.9% 1000ML 1,000 ML IV SCH ×3 (02:21→20:37)
[2022-01-28] MEDS: ONDANSETRON HCL INJ 2MG/ML 2ML 2 MG/ML VIAL IV PRN ×2 (04:55→09:05)
[2022-01-28] MEDS: HYDROMORPHONE 1MG/1ML INJ IV PRN ×4 (04:55→18:33)
[2022-01-28] MEDS ORDERED: METHYLPREDNISOLONE SOD SUCC 40 MG/ML VIAL 1ML IV ONE (18:15)
[2022-01-28] MEDS: GABAPENTIN 100 MG CAP PO SCH (20:37)
[2022-01-29] VITALS (7 sets, daily range): BP systolic 111–144; BP diastolic 59–74
[2022-01-29] MEDS: KETOROLAC TROMETHAMINE 30 MG/ML VIAL IV PRN (04:53)
[2022-01-29] MEDS: SODIUM CHLORIDE 0.9% 1000ML 1,000 ML IV SCH (04:56)
[2022-01-29 05:03] LABS: BASOPHILS % 0.1 % (0.0-1.0); HEMOGLOBIN 13.8 g/dL (12.0-16.0); LYMPHOCYTES # (AUTO) 0.8 (1.0-3.2); LYMPHOCYTES % 6.7 % (18.0-39.1); MEAN CORPUSCULAR HEMOGLOBIN 30.5 pg (28-32); MEAN CORPUSCULAR HGB CONC 33.7 g/dL (31-35); MEAN CORPUSCULAR VOLUME 90.5 fL (81-99); MONOCYTES # (AUTO) 0.2 (0.2-0.8); MONOCYTES % 1.9 % (4.4-11.3); NEUTROPHILS # (AUTO) 11.1 (2.1-6.9); NEUTROPHILS % 90.6 % (38.7-80.0); PLATELET COUNT 261 x10e3/uL (140-360); RED BLOOD COUNT 4.53 x10e6/uL (3.6-5.1); RED CELL DISTRIBUTION WIDTH 12.7 % (11.7-14.4)
[2022-01-29 05:23] LABS: ALBUMIN 3.2 g/dL (3.5-5.0); ANION GAP 16.8 mmol/L (8-16); CALCIUM 8.7 mg/dL (8.4-10.2); CREATININE, SERUM 0.68 mg/dL (0.57-1.11); POTASSIUM 3.8 mmol/L (3.5-5.1)
[2022-01-29] MEDS: GABAPENTIN 100 MG CAP PO SCH ×3 (09:53→22:08)
[2022-01-29] MEDS ORDERED: METHYLPREDNISOLONE SOD SUCC 40 MG/ML VIAL 1ML IV ONE (17:45)
[2022-01-30] VITALS (8 sets, daily range): BP systolic 112–130; BP diastolic 61–77
[2022-01-30] MEDS: SODIUM CHLORIDE 0.9% 1000ML 1,000 ML IV SCH ×3 (05:15→21:55)
[2022-01-30 06:31] LABS: ANION GAP 12.4 mmol/L (8-16); CALCIUM 7.9 mg/dL (8.4-10.2); CREATININE, SERUM 0.7 mg/dL (0.57-1.11); POTASSIUM 3.4 mmol/L (3.5-5.1)
[2022-01-30] MEDS ORDERED: POTASSIUM CHLORIDE 20 MEQ TAB CR PO ONE (07:15)
[2022-01-30] MEDS: GABAPENTIN 100 MG CAP PO SCH ×3 (10:21→21:29)
[2022-01-31 00:27] VITALS: BP 124/62
[2022-01-31] MEDS: KETOROLAC TROMETHAMINE 30 MG/ML VIAL IV PRN (03:51)
[2022-01-31 04:00] VITALS: BP 147/85
[2022-01-31] MEDS: SODIUM CHLORIDE 0.9% 1000ML 1,000 ML IV SCH (07:55)
[2022-01-31 08:05] VITALS: BP 155/77
[2022-01-31 08:26] VITALS: BP 155/77
[2022-01-31] MEDS: GABAPENTIN 100 MG CAP PO SCH (09:05)
== END 2022-01-31 10:08 | disposition home or self-care (01) | DRG 330 ==
LOC: ER 05:54 → ERHOLD 09:24 → MED/SURG 10:00 → UNDODISIN 01-26 11:40 → MED/SURG 01-26 12:15
PROVIDERS: ADMIT Family Medicine; ATTEND Family Medicine
PROC: 0DB80ZZ Excision of Small Intestine, Open Approach (ICD-10-PCS; 2022-01-24)
PROC: 0DB84ZZ Excision of Small Intestine, Percutaneous Endoscopic Approach (ICD-10-PCS; principal; 2022-01-24 14:32)
DX: K56.1 Intussusception (principal); E44.0 Moderate protein-calorie malnutrition; Z68.1 Body mass index [BMI] 19.9 or less, adult; E87.1 Hypo-osmolality and hyponatremia; R64 Cachexia; I10 Essential (primary) hypertension; J44.9 Chronic obstructive pulmonary disease, unspecified; Z20.822 Contact with and (suspected) exposure to COVID-19; K21.9 Gastro-esophageal reflux disease without esophagitis; Z85.028 Personal history of other malignant neoplasm of stomach
CPT/HCPCS: 36415; 74177; 80048; 80053; 81001; 83690; 84484; 84550; 85025; 88304; 88307; 93005; 93971; 94799; 99285; J0330; J0694; J1170; J1885; J2001; J2405; J2710; J2920; J3010; J7030; Q9967

== ENCOUNTER 2023-10-07 22:46 | Inpatient (IN) | payer MEDICARE ==
[~2023-10-07] VITALS: Ht 160 cm; Wt 39.7 kg
[~2023-10-07 22:46] MED LIST changes: +ALENDRONATE SOD70 MG; +CLONIDINE HCL0.1 MG PO; +Calcium Carbonate 500MG Chew PO; +ECOTRIN81 MG PO; +GABAPENTIN100 MG PO; +IRBESARTAN150 MG PO; +LEVOTHYROXINE50 MC1 PO; +LEVOTHYROXINE75 MCG PO; +METOPROLOL TART25 MG PO; +MULTI-VITAMIN1 EACH PO; +OMEPRAZOLE40 MG PO; +ONDANSETRON ODT4 MG PO; +ULTRAM 50MG50 MG PO; +VITAMIN D3 COM1 EACH PO; +ZIAC 2.5-6.251 EACH PO
[2023-10-07 23:15] VITALS: TEMP 97.3
[2023-10-07] MEDS ORDERED: SODIUM CHLORIDE FLUSH 10 ML SYR IV PRN (23:45)
[2023-10-07 23:56] LABS: BASOPHILS % 0.5 % (0.0-1.0); EOSINOPHILS # (AUTO) 0.1 (0.0-0.4); EOSINOPHILS % 1.2 % (0.0-6.0); HEMATOCRIT 35.4 % (34.2-44.1); HEMOGLOBIN 11.3 g/dL (12.0-16.0); LYMPHOCYTES # (AUTO) 1.7 (1.0-3.2); LYMPHOCYTES % 28.7 % (18.0-39.1); MEAN CORPUSCULAR HGB CONC 31.9 g/dL (31-35); MEAN CORPUSCULAR VOLUME 87.6 fL (81-99); MONOCYTES # (AUTO) 0.7 (0.2-0.8); NEUTROPHILS # (AUTO) 3.3 (2.1-6.9); NEUTROPHILS % 57.4 % (38.7-80.0); PLATELET COUNT 210 x10e3/uL (140-360); RED BLOOD COUNT 4.04 x10e6/uL (3.6-5.1); RED CELL DISTRIBUTION WIDTH 14.4 % (11.7-14.4); WHITE BLOOD COUNT 5.74 x10e3/uL (4.8-10.8)
[2023-10-08] VITALS (12 sets, daily range): BP systolic 125–161; BP diastolic 67–84; PULSE 62–78; RESP 16–21; TEMP 97.9–98.6; O2SAT 97–100
[2023-10-08 00:15] LABS: ALBUMIN 3.6 g/dL (3.5-5.0); ALBUMIN/GLOBULIN RATIO 1.2 (0.8-2.0); ANION GAP 11.7 mmol/L (8-16); BILIRUBIN,TOTAL 0.3 mg/dL (0.2-1.2); CREATININE, SERUM 0.8 mg/dL (0.57-1.11); POTASSIUM 3.7 mmol/L (3.5-5.1); TOTAL PROTEIN 6.5 g/dL (6.5-8.1)
[2023-10-08 00:21] LABS: TROPONIN I 0.007 ng/mL (0-0.300)
[2023-10-08] MEDS: ACETAMINOPHEN 325 MG TAB PO ONE (00:24)
[2023-10-08 00:43] LABS: BILIRUBIN,URINE NEGATIVE (NEGATIVE); CLARITY,URINE CLEAR (CLEAR); COLOR,URINE YELLOW (YELLOW); GLUCOSE, URINE NEGATIVE (NEGATIVE); KETONES,URINE NEGATIVE (NEGATIVE); LEUKOCYTE ESTERASE ,URINE NEGATIVE (NEGATIVE); NITRITE,URINE NEGATIVE (NEGATIVE); PH,URINE 7.5 (5 - 7); PROTEIN,URINE DIPSTICK NEGATIVE (NEGATIVE); URINE UROBILINOGEN 0.2 mg/dL (0.2 - 1)
[2023-10-08 01:40] LABS: BACTERIA,URINE FEW /HPF; EPITHELIAL CELLS,URINE FEW /LPF; RBC,URINE 0-5 /HPF (0-5); RENAL EPITHELIAL CELLS,URINE FEW; WBC,URINE (MAN) 0-5 /HPF (0-5)
[2023-10-08] MEDS ORDERED: SODIUM CHLORIDE FLUSH 10 ML SYR INJ PRN (04:00)
[2023-10-08 07:45] LABS: TROPONIN I 0.002 ng/mL (0-0.300)
[2023-10-08] MEDS: ONDANSETRON HCL INJ 2MG/ML 2ML 2 MG/ML VIAL IV PRN (08:36)
[2023-10-08] MEDS ORDERED: ONDANSETRON HCL INJ 2MG/ML 2ML 2 MG/ML VIAL IV PRN (09:30)
[2023-10-08] MEDS: METOPROLOL TARTRATE 25 MG TAB PO SCH (10:22)
[2023-10-08] MEDS: GABAPENTIN 100 MG CAP PO SCH (10:22)
[2023-10-08] MEDS: HYDROCODONE/APAP 7.5MG-325MG 1 EA TAB PO PRN (10:23)
[2023-10-08 18:24] LABS: TROPONIN I 0.004 ng/mL (0-0.300)
[2023-10-09] VITALS (8 sets, daily range): BP systolic 112–142; BP diastolic 59–74; PULSE 62–82; RESP 16–18; TEMP 97.7–98.4; O2SAT 96–100
[2023-10-09 06:04] LABS: BASOPHILS # (AUTO) 0.1 (0.0-0.1); BASOPHILS % 0.9 % (0.0-1.0); EOSINOPHILS # (AUTO) 0.1 (0.0-0.4); EOSINOPHILS % 2.1 % (0.0-6.0); HEMATOCRIT 38.6 % (34.2-44.1); HEMOGLOBIN 12.5 g/dL (12.0-16.0); LYMPHOCYTES # (AUTO) 2.9 (1.0-3.2); LYMPHOCYTES % 51.5 % (18.0-39.1); MEAN CORPUSCULAR HEMOGLOBIN 28.1 pg (28-32); MEAN CORPUSCULAR HGB CONC 32.4 g/dL (31-35); MEAN CORPUSCULAR VOLUME 86.7 fL (81-99); MONOCYTES # (AUTO) 0.6 (0.2-0.8); MONOCYTES % 10.3 % (4.4-11.3); PLATELET COUNT 241 x10e3/uL (140-360); RED BLOOD COUNT 4.45 x10e6/uL (3.6-5.1); RED CELL DISTRIBUTION WIDTH 14.6 % (11.7-14.4); WHITE BLOOD COUNT 5.65 x10e3/uL (4.8-10.8)
[2023-10-09 06:42] LABS: ALBUMIN 3.5 g/dL (3.5-5.0); ALBUMIN/GLOBULIN RATIO 1.2 (0.8-2.0); ANION GAP 12.4 mmol/L (8-16); BILIRUBIN,TOTAL 0.5 mg/dL (0.2-1.2); CALCIUM 9.2 mg/dL (8.4-10.2); CREATININE, SERUM 0.98 mg/dL (0.57-1.11); POTASSIUM 4.4 mmol/L (3.5-5.1); TOTAL PROTEIN 6.5 g/dL (6.5-8.1)
[2023-10-09 06:53] LABS: MAGNESIUM 1.8 MG/DL (1.3-2.1); PHOSPHORUS 3.3 MG/DL (2.3-4.7)
[2023-10-09] MEDS ORDERED: LIDOCAINE 1% W/EPINEPHRINE 20 ML VIAL ONE (07:04)
[2023-10-09] MEDS ORDERED: BUPIVACAINE HCL 0.5% INJ 30 ML VIAL INJ ONE (07:04)
[2023-10-09] MEDS ORDERED: GADOBENATE DIMEGLUMINE 1 ML IV ONE (09:56)
[2023-10-09] MEDS: LIOTHYRONINE SODIUM 5 MCG TAB PO SCH (11:54)
[2023-10-09] MEDS: LEVOTHYROXINE SODIUM 75 MCG TAB PO SCH (11:54)
[2023-10-10] VITALS (7 sets, daily range): BP systolic 112–152; BP diastolic 57–79; PULSE 61–78; RESP 16–18; TEMP 97.9–99.1; O2SAT 99–100
[2023-10-10] MEDS: ONDANSETRON HCL 4 MG ORAL DISINTEGRATING TAB PO PRN (18:40)
[2023-10-10] MEDS: DEXTROSE 5% 1,000 ML IV SCH (20:42)
[2023-10-11] VITALS (11 sets, daily range): BP systolic 104–147; BP diastolic 55–87; PULSE 58–73; RESP 16–19; TEMP 97.5–98.9; O2SAT 95–100
[2023-10-11] MEDS ORDERED: POTASSIUM CHLORIDE 20 MEQ TAB CR PO PRN (10:45)
[2023-10-11] MEDS ORDERED: ALBUTEROL/IPRATROPIUM 3 ML NEB NEB PRN (10:45)
[2023-10-11] MEDS ORDERED: DIPHENHYDRAMINE HCL 25 MG CAP PO PRN (10:45)
[2023-10-11] MEDS ORDERED: BENZONATATE 100 MG CAP PO PRN (10:45)
[2023-10-11] MEDS ORDERED: MELATONIN 5 MG TABLET PO PRN (10:45)
[2023-10-11] MEDS ORDERED: LIDOCAINE 4% PATCH TP PRN (10:45)
[2023-10-11] MEDS ORDERED: DOCUSATE SODIUM 100 MG CAP PO PRN (10:45)
[2023-10-11] MEDS ORDERED: HYDRALAZINE HCL 20 MG/ML VIAL IV PRN (10:45)
[2023-10-11] MEDS ORDERED: DEXTROSE 50% SYRINGE 50 ML IV PRN (10:45)
[2023-10-11] MEDS ORDERED: SIMETHICONE 80 MG CHEW PO PRN (10:45)
[2023-10-11] MEDS: DEXTROSE 5%/0.9% SOD CHL 1,000 ML IV SCH (11:46)
[2023-10-11 12:50] LABS: ANION GAP 13.2 mmol/L (8-16); CALCIUM 9.6 mg/dL (8.4-10.2); CREATININE, SERUM 0.92 mg/dL (0.57-1.11); POTASSIUM 4.2 mmol/L (3.5-5.1)
[2023-10-11] MEDS: ENOXAPARIN SOD INJ 40 MG/0.4 ML SYR SC SCH (17:59)
[2023-10-12] VITALS: BP 112/57; PULSE 64; RESP 18; TEMP 98.6; O2SAT 100
[2023-10-12 05:34] VITALS: BP 129/70; PULSE 77; RESP 16; TEMP 98.6; O2SAT 100
[2023-10-12 06:08] LABS: BASOPHILS # (AUTO) 0.1 (0.0-0.1); EOSINOPHILS # (AUTO) 0.1 (0.0-0.4); EOSINOPHILS % 1.8 % (0.0-6.0); HEMATOCRIT 37.2 % (34.2-44.1); LYMPHOCYTES # (AUTO) 2.7 (1.0-3.2); LYMPHOCYTES % 52.6 % (18.0-39.1); MEAN CORPUSCULAR HEMOGLOBIN 28.2 pg (28-32); MEAN CORPUSCULAR HGB CONC 32.3 g/dL (31-35); MEAN CORPUSCULAR VOLUME 87.5 fL (81-99); MONOCYTES # (AUTO) 0.5 (0.2-0.8); MONOCYTES % 9.7 % (4.4-11.3); NEUTROPHILS # (AUTO) 1.8 (2.1-6.9); NEUTROPHILS % 34.9 % (38.7-80.0); PLATELET COUNT 227 x10e3/uL (140-360); RED BLOOD COUNT 4.25 x10e6/uL (3.6-5.1); RED CELL DISTRIBUTION WIDTH 14.3 % (11.7-14.4); WHITE BLOOD COUNT 5.04 x10e3/uL (4.8-10.8)
[2023-10-12 06:36] VITALS: PULSE 66; RESP 21; O2SAT 96
[2023-10-12 06:36] LABS: ANION GAP 11.2 mmol/L (8-16); CREATININE, SERUM 0.85 mg/dL (0.57-1.11); MAGNESIUM 1.5 MG/DL (1.3-2.1); POTASSIUM 4.2 mmol/L (3.5-5.1)
[2023-10-12 08:08] VITALS: BP 118/65; PULSE 74; RESP 17; TEMP 97.4; O2SAT 100
[2023-10-12] MEDS: PANTOPRAZOLE SOD 40 MG TABEC PO SCH (08:51)
[2023-10-12 11:26] VITALS: BP 115/60; PULSE 60; RESP 17; TEMP 97.9; O2SAT 97
== END 2023-10-12 12:30 | disposition home or self-care (01) | DRG 392 ==
LOC: ER 10-08 00:48 → ERHOLD 10-08 03:51 → MED/SURG2 10-08 05:01 → OBSVTOIN 10-08 10:10
PROVIDERS: ADMIT Internal Medicine; ATTEND Internal Medicine
DX: R10.13 Epigastric pain (principal); Z68.1 Body mass index [BMI] 19.9 or less, adult; R62.7 Adult failure to thrive; M48.04 Spinal stenosis, thoracic region; R13.10 Dysphagia, unspecified; R55 Syncope and collapse; E03.9 Hypothyroidism, unspecified; I10 Essential (primary) hypertension; K21.9 Gastro-esophageal reflux disease without esophagitis; Z11.52 Encounter for screening for COVID-19; R51.9 Headache, unspecified; D64.9 Anemia, unspecified; M19.90 Unspecified osteoarthritis, unspecified site; R11.2 Nausea with vomiting, unspecified; M84.48XD Pathological fracture, other site, subsequent encounter for fracture with routine healing; Z79.82 Long term (current) use of aspirin; Z79.890 Hormone replacement therapy; Z85.028 Personal history of other malignant neoplasm of stomach; Z90.49 Acquired absence of other specified parts of digestive tract
CPT/HCPCS: 36415; 70450; 70551; 71045; 71260; 72157; 74177; 80048; 80053; 81001; 82550; 83735; 84100; 84443; 84484; 85025; 93005; 94760; 94799; 99284; J1650; J2405; J2470; J7042; J7070; Q0162; U0002

== ENCOUNTER → 2023-12-08 | Outpatient (REF) | payer MEDICARE | LOC: RESP 08:41 → EDSTATUS 09:00 | PROVIDERS: ATTEND Nurse Practitioner Family | DX: R06.02 Shortness of breath (principal); J44.9 Chronic obstructive pulmonary disease, unspecified; K21.9 Gastro-esophageal reflux disease without esophagitis; Z68.1 Body mass index [BMI] 19.9 or less, adult | CPT/HCPCS: 94060; 94727; 94729 ==

== ENCOUNTER 2024-01-22 13:31 | Emergency (ER) | payer MEDICARE ==
[~2024-01-22] VITALS: Ht 160 cm; Wt 39.5 kg
[2024-01-22 13:35] VITALS: TEMP 98.4
[2024-01-22 14:32] LABS: BASOPHILS % 0.3 % (0.0-1.0); EOSINOPHILS % 0.2 % (0.0-6.0); HEMATOCRIT 36.5 % (34.2-44.1); HEMOGLOBIN 11.5 g/dL (12.0-16.0); LYMPHOCYTES # (AUTO) 0.9 (1.0-3.2); LYMPHOCYTES % 14.5 % (18.0-39.1); MEAN CORPUSCULAR HEMOGLOBIN 27.9 pg (28-32); MEAN CORPUSCULAR HGB CONC 31.5 g/dL (31-35); MEAN CORPUSCULAR VOLUME 88.6 fL (81-99); MONOCYTES # (AUTO) 0.5 (0.2-0.8); MONOCYTES % 7.5 % (4.4-11.3); NEUTROPHILS # (AUTO) 4.6 (2.1-6.9); NEUTROPHILS % 77.2 % (38.7-80.0); PLATELET COUNT 231 x10e3/uL (140-360); RED BLOOD COUNT 4.12 x10e6/uL (3.6-5.1); RED CELL DISTRIBUTION WIDTH 15.1 % (11.7-14.4); WHITE BLOOD COUNT 5.99 x10e3/uL (4.8-10.8)
[2024-01-22] MEDS: SODIUM CHLORIDE 0.9% 500ML 500 ML IV ONE (14:39)
[2024-01-22] MEDS: DIPHENHYDRAMINE HCL INJ 50 MG/ML VIAL IV ONE (14:40)
[2024-01-22 14:42] VITALS: PULSE 76; RESP 15; O2SAT 100
[2024-01-22 15:17] LABS: ALANINE AMINOTRANSFERASE 20 IU/L (0-55); ALBUMIN 3.7 g/dL (3.5-5.0); ALBUMIN/GLOBULIN RATIO 1.2 (0.8-2.0); ALKALINE PHOSPHATASE 69 IU/L (40-150); ANION GAP 13.1 mmol/L (8-16); BILIRUBIN,TOTAL 0.4 mg/dL (0.2-1.2); BLOOD UREA NITROGEN 18 mg/dL (7-26); BUN/CREATININE RATIO 20 (6-25); CALCIUM 9.6 mg/dL (8.4-10.2); CARBON DIOXIDE 27 mmol/L (22-29); CHLORIDE 103 mmol/L (98-107); CREATINE KINASE 97 IU/L (29-168); EST GLOMERULAR FILTRATION RATE 64 ML/MIN (>=60); GLUCOSE 176 mg/dL (74-118); POTASSIUM 4.1 mmol/L (3.5-5.1); SODIUM 139 mmol/L (136-145); TOTAL PROTEIN 6.7 g/dL (6.5-8.1)
[2024-01-22 15:24] LABS: TROPONIN I < 0.001 ng/mL (0-0.300)
== END 2024-01-22 16:31 | disposition home or self-care (01) ==
LOC: ER 13:42
DX: R00.2 Palpitations (principal); R20.2 Paresthesia of skin; T45.0X5A Adverse effect of antiallergic and antiemetic drugs, initial encounter
CPT/HCPCS: 36415; 80053; 82550; 83735; 84484; 85025; 93005; 99283; J7040